=== PATIENT | female | born 1935 | race Caucasian/White ===

== ENCOUNTER 2020-04-30 19:19 | Inpatient (IN) | payer OTHER ==
[2020-04-30] MEDS ORDERED: METOPROLOL TARTRATE 5 MG/5 ML INJ IV ONE ×3 (20:57→21:35)
[2020-04-30 21:02] LABS: Basophils % 1.5 % (0-1.3); Hematocrit 48.5 % (36.0-45.0); Lymphocytes % 38.6 % (15.3-44.8); MPV 9.8 fL (7.6-11.3); RBC Red Blood Cell Count 5.18 M/uL (3.86-4.86)
[2020-04-30 21:03] LABS: Protime INR 1.65
[2020-04-30 21:10] LABS: ALT/SGPT 32 U/L (12-78); AST/SGOT 55 U/L (15-37); Albumin 3.3 g/dL (3.4-5.0); Alkaline Phosphatase 69 U/L (45-117); BUN Blood Urea Nitrogen 14 mg/dL (7-18); Bicarbonate 28 mmol/L (21-32); Bilirubin Direct 0.2 mg/dL (0-0.2); Bilirubin Total 0.8 mg/dL (0.2-1.0); Glucose Level 110 mg/dL (74-106); Magnesium 1.9 mg/dL (1.8-2.4); NT PRO-BNP 3533 pg/mL (<450); Potassium 3.8 mmol/L (3.5-5.1); Protein, Total 7.3 g/dL (6.4-8.2); Sodium Level 138 mmol/L (136-145); Troponin (Emerg Dept Use Only) < 0.02 ng/mL (0.0-0.045)
--- NOTE | 2020-04-30 21:40 | RAD REPORT ---
EXAM DESCRIPTION: RAD - Chest Single View - 04/30/2020 9:19 pm CLINICAL HISTORY: PALPITATIONS Chest pain. COMPARISON: Chest Pa And Lat (2 Views) dated 04/21/2017; Chest Pa And Lat (2 Views) dated 04/20/2017 ; Chest Single View dated 04/19/2017; Chest Single View dated 06/07/2016 FINDINGS: Portable technique limits examination quality. Chronic elevation the right hemidiaphragm is noted. The lungs are grossly clear. The heart is upper l imit normal size. No displaced fractures. IMPRESSION: No acute intrathoracic process suspected.
--- NOTE | 2020-04-30 22:04 | EDPHYS ---
Physician Documentation [facility] Name: Laya Kim Age: 85 yrs Sex: Female : 1935 Arrival Date: 04/30/2020 Time: 19:23 Bed 15 Private MD: ED Physician Imtiaz Jack HPI: 04/30 20:29 This 85 yrs old Female presents to ER via Wheelchair with complaints of mh7 racing heart rate >130. 20:29 The patient presents with a history of irregular heart beat, heart racing. Context: The mh7 symptoms occur at rest. Onset: The symptoms/episode began/occurred 4 day(s) ago. Duration: The patient or guardian reports multiple episodes, that are intermittent. Modifying factors: The symptoms are aggravated by nothing. The symptoms are alleviated by nothing. Associated signs and symptoms: Pertinent positives: SOB, Pertinent negatives: anxiety, chest pain, cough, fever, lightheadedness, nausea, syncope, near-syncope, unusual stressors, vertigo, vomiting. Severity of symptoms: At their worst the symptoms were moderate last night, in the emergency department the symptoms are unchanged. Historical: - Allergies: 19:30 Snake serum; rr5 19:30 antibiotic medication; rr5 - PMHx: 19:30 CHF; Hypertension; Hypothyroidism; Myocardial infarction; pleural effusions requiring rr5 draining; Atrial Fib; - PSHx: 19:30 None; rr5 - Immunization history:: Adult Immunizations up to date. - Social history:: Smoking status: unknown. ROS: 20:29 Constitutional: Negative for fever, chills, and weight loss, Eyes: Negative for injury, mh7 pain, redness, and discharge, ENT: Negative for injury, pain, and discharge, Neck: Negative for injury, pain, and swelling, Abdomen/GI: Negative for abdominal pain, nausea, vomiting, diarrhea, and constipation, Back: Negative for injury and pain, : Negative for injury, bleeding, discharge, and swelling, MS/Extremity: Negative for injury and deformity, Skin: Negative for injury, rash, and discoloration, Neuro: Negative for headache, weakness, numbness, tingling, and seizure, Psych: Negative for depression, anxiety, suicide ideation, homicidal ideation, and hallucinations, Allergy/Immunology: Negative for hives, rash, and allergies, Endocrine: Negative for neck swelling, polydipsia, polyuria, polyphagia, and marked weight changes, Hematologic/Lymphatic: Negative for swollen nodes, abnormal bleeding, and unusual bruising. Exam: 20:29 Constitutional: This is a well developed, well nourished patient who is awake, alert, mh7 and in no acute distress. Head/Face: Normocephalic, atraumatic. Eyes: Pupils equal round and reactive to light, extra-ocular motions intact. Lids and lashes normal. Conjunctiva and sclera are non-icteric and not injected. Cornea within normal limits. Periorbital areas with no swelling, redness, or edema. Neck: Trachea midline, no thyromegaly or masses palpated, and no cervical lymphadenopathy. Supple, full range of motion without nuchal rigidity, or vertebral point tenderness. No Meningismus. Chest/axilla: Normal chest wall appearance and motion. Nontender with no deformity. No lesions are appreciated. 20:29 Respiratory: Lungs have equal breath sounds bilaterally, clear to auscultation and percussion. No rales, rhonchi or wheezes noted. No increased work of breathing, no retractions or nasal flaring. Abdomen/GI: Soft, non-tender, with normal bowel sounds. No distension or tympany. No guarding or rebound. No evidence of tenderness throughout. Back: No spinal tenderness. No costovertebral tenderness. Full range of motion. Skin: Warm, dry with normal turgor. Normal color with no rashes, no lesions, and no evidence of cellulitis. MS/ Extremity: Pulses equal, no cyanosis. Neurovascular intact. Full, normal range of motion. Neuro: Awake and alert, GCS 15, oriented to person, place, time, and situation. Cranial nerves II-XII grossly intact. Motor strength 5/5 in all extremities. Sensory grossly intact. Cerebellar exam normal. Normal gait. Psych: Awake, alert, with orientation to person, place and time. Behavior, mood, and affect are within normal limits. 20:29 Cardiovascular: Rate: tachycardic, Rhythm: irregularly irregular, Pulses: no pulse deficits are appreciated, Heart sounds: normal, normal S1and S2, Edema: pedal edema, that is mild, JVD: is not appreciated. 20:29 ECG was reviewed by the Attending Physician. Vital Signs: 19:30 BP 134 / 91; Pulse 132; Resp 19; Temp 97.8; Pulse Ox 99% ; Weight 81.65 kg; Height 5 rr5 ft. 7 in. (170.18 cm); Pain 0/10; 20:42 BP 127 / 80; Pulse 127; Resp 20; Pulse Ox 97% on R/A; ca1 21:07 BP 120 / 63; Pulse 133; Resp 19 S; Pulse Ox 96% on R/A; ca1 21:32 BP 109 / 67; Pulse 128; Resp 18 S; Pulse Ox 98% on R/A; ca1 22:15 BP 94 / 67; Pulse 132; Resp 19; Temp 98.1; Pulse Ox 98% on R/A; rr5 23:15 BP 106 / 74; Pulse 128; Resp 17; Pulse Ox 98% ; rr5 05/01 00:10 BP 97 / 57; Pulse 121; Resp 17; Pulse Ox 95% on R/A; rr5 04/30 19:30 Body Mass Index 28.19 (81.65 kg, 170.18 cm) rr5 MDM: 04/30 22:01 Differential diagnosis: arrythmia, dehydration, stress disorder. Data reviewed: vital [facility] signs, nurses notes, old medical records, lab test result(s), cardiac enzymes, CBC, electrolytes, urinalysis, EKG, radiologic studies, plain films. Data interpreted: Pulse oximetry: on room air is 98 %. Interpretation: normal. Counseling: I had a detailed discussion with the patient and/or guardian regarding: the historical points, exam findings, and any diagnostic results supporting the discharge/admit diagnosis, lab results, radiology results, the need for further work-up and treatment in the hospital. Response to treatment: the patient's symptoms have mildly improved after treatment. 22:03 Patient medically screened. [facility] 04/30 20:28 Order name: Basic Metabolic Panel; Complete Time: 21:11 [facility] 04/30 20:28 Order name: CBC with Diff; Complete Time: 21:07 [facility] 04/30 20:28 Order name: LFT's; Complete Time: 21:11 [facility] 04/30 20:28 Order name: Magnesium; Complete Time: 21:11 [facility] 04/30 20:28 Order name: NT PRO-BNP; Complete Time: 21:11 [facility] 04/30 20:28 Order name: PT-INR; Complete Time: 21:07 7 04/30 20:28 Order name: Troponin (emerg Dept Use Only); Complete Time: 21:11 7 04/30 22:11 Order name: COVID-19 rr5 05/01 00:24 Order name: SARS-COV-2 RT PCR [facility] 05/01 03:26 Order name: Troponin I [facility] 05/01 04:42 Order name: CBC with Automated Diff [facility] 05/01 05:07 Order name: Comprehensive Metabolic Panel [facility] 05/01 05:07 Order name: T4 Free [facility] 05/01 05:07 Order name: Magnesium [facility] 04/30 20:28 Order name: XRAY Chest (1 view); Complete Time: 21:42 mh7 04/30 20:28 Order name: EKG; Complete Time: 20:29 7 04/30 20:28 Order name: Cardiac monitoring; Complete Time: 20:43 mh7 04/30 20:28 Order name: EKG - Nurse/Tech; Complete Time: 20:31 7 04/30 20:28 Order name: IV Saline Lock; Complete Time: 20:43 7 04/30 20:28 Order name: Labs collected and sent; Complete Time: 20:43 7 05/01 05:07 Order name: Thyroid Stimulating Hormone [facility] 05/01 05:19 Order name: Urine Microscopic Only rr5 05/01 05:20 Order name: Urine Dipstick--Ancillary (enter results) tt3 05/01 05:58 Order name: Urine Dipstick-Ancillary [facility] 05/01 05:59 Order name: Urine Microscopic Only [facility] 05/01 08:55 Order name: Troponin I [facility] 04/30 20:28 Order name: O2 Per Protocol; Complete Time: 20:43 7 04/30 20:28 Order name: O2 Sat Monitoring; Complete Time: 20:43 7 04/30 20:28 Order name: Urine Dipstick-Ancillary (obtain specimen); Complete Time: 05:19 mh7 EC:29 Rate is 132 beats/min. Rhythm is irregularly irregular, A fib. QRS Rheems is Normal. CT mh7 interval is normal. QRS interval is normal. QT interval is normal. No Q waves. T waves are Normal. No ST changes noted. Clinical impression: Atrial Fibrillation. Administered Medications: 20:46 Drug: Metoprolol 5 mg Route: IVP; Site: right forearm; ca1 20:55 Follow up: Response: No adverse reaction; Cardiac rhythm is unchanged ca1 20:58 Drug: Lopressor 5 mg Route: IVP; Site: right forearm; ca1 21:11 Follow up: Response: No adverse reaction; Cardiac rhythm is unchanged ca1 21:22 Drug: Metoprolol 5 mg Route: IVP; Site: right forearm; ca1 22:20 Follow up: Response: No adverse reaction rr5 22:43 Drug: Betapace 40 mg Route: PO; rr5 23:40 Follow up: Response: No adverse reaction rr5 Disposition: 04/30/20 22:03 Hospitalization ordered by Crispin De La Torre for Observation. Preliminary diagnosis is Atrial Fibrillation with RVR. - Bed requested for Telemetry/MedSurg (observation). - Status is Observation. iw - Condition is Stable. - Problem is an acute exacerbation. - Symptoms have improved. Signatures: Dispatcher [employer] EDMS Neda Samson RN RN dm5 Belia Simon RN RN Crispin Silva RN RN rr5 Glory Cooper RN RN ca1 Imtiaz Jack MD MD 7 Corrections: (The following items were deleted from the chart) 23:19 22:03 Hospitalization Ordered by Crispin De La Torre MD for Observation. Preliminary dm5 diagnosis is Atrial Fibrillation with RVR. Bed requested for Telemetry/MedSurg (observation). Status is Observation. Condition is Stable. Problem is an acute exacerbation. Symptoms have improved. [facility] 05/01 14:19 04/30 23:19 04/30/2020 22:03 Hospitalization Ordered by Crispin De La Torre MD for iw Observation. Preliminary diagnosis is Atrial Fibrillation with RVR. [facility]. Status is Observation. Condition is Stable. Problem is an acute exacerbation. Symptoms have improved. 5 05/01 15:29 14:19 04/30/2020 22:03 Hospitalization Ordered by Crispin De La Torre MD for Observation. iw Preliminary diagnosis is Atrial Fibrillation with RVR. Bed requested for Telemetry/MedSurg (observation). Status is Observation. Condition is Stable. Problem is an acute exacerbation. Symptoms have improved. iw
--- NOTE | 2020-04-30 22:04 | ER ---
Nurse's Notes [facility] Name: Laya Kim Age: 85 yrs Sex: Female : 1935 Arrival Date: 04/30/2020 Time: 19:23 Bed 15 Private MD: Diagnosis: Atrial Fibrillation with RVR Presentation: 04/30 19:30 Chief complaint: Patient's son or daughter states: we noticed that her heart rate is rr5 beating fast started Saturday raised up to 140 bpm and she is having shortness of breath. 19:30 Coronavirus screen: Client denies travel out of the [place] in the last 14 days. shortness rr5 of breath, Client presents with at least one sign or symptom that may indicate coronavirus-19. Standard/surgical mask placed on the client. Provider contacted for isolation considerations. Ebola Screen: Patient negative for fever greater than or equal to 101.5 degrees Fahrenheit, and additional compatible Ebola Virus Disease symptoms Patient denies exposure to infectious person. Patient denies travel to an Ebola-affected area in the 21 days before illness onset. Initial Sepsis Screen: Does the patient meet any 2 criteria? HR > 90 bpm. Yes Does the patient have a suspected source of infection? No. Patient's initial sepsis screen is negative. Risk Assessment: Do you want to hurt yourself or someone else? Patient reports no desire to harm self or others. Onset of symptoms was April 26, 2020. 19:30 Method Of Arrival: Wheelchair rr5 19:30 Acuity: NATAN 3 rr5 Historical: - Allergies: 19:30 Snake serum; rr5 19:30 antibiotic medication; rr5 - PMHx: 19:30 CHF; Hypertension; Hypothyroidism; Myocardial infarction; pleural effusions requiring rr5 draining; Atrial Fib; - PSHx: 19:30 None; rr5 - Immunization history:: Adult Immunizations up to date. - Social history:: Smoking status: unknown. Screenin:35 Abuse screen: Denies threats or abuse. Denies injuries from another. Nutritional ca1 screening: No deficits noted. Tuberculosis screening: No symptoms or risk factors identified. Fall Risk IV access (20 points). Assessment: 20:35 General: Appears in no apparent distress. comfortable, Behavior is calm, cooperative, ca1 appropriate for age. Pain: Denies pain. Neuro: Level of Consciousness is awake, alert, obeys commands, Oriented to person, place, time, situation. Cardiovascular: Heart tones S1 S2 present Capillary refill < 3 seconds Patient's skin is warm and dry. Rhythm is atrial fibrillation. Respiratory: Airway is patent Respiratory effort is even, unlabored, Respiratory pattern is regular, symmetrical, Breath sounds are clear bilaterally. GI: Abdomen is round non-distended, Bowel sounds present X 4 quads. Abd is soft and non tender X 4 quads. : No signs and/or symptoms were reported regarding the genitourinary system. EENT: No signs and/or symptoms were reported regarding the EENT system. Derm: Skin is intact, is healthy with good turgor, Skin is pink, warm \T\ dry. Musculoskeletal: Circulation, motion, and sensation intact. Capillary refill < 3 seconds. 21:32 Reassessment: Patient appears in no apparent distress at this time. Patient and/or ca1 family updated on plan of care and expected duration. Pain level reassessed. Patient is alert, oriented x 3, equal unlabored respirations, skin warm/dry/pink. 22:20 Reassessment: Patient appears in no apparent distress at this time. Patient is alert, rr5 oriented x 3, equal unlabored respirations, skin warm/dry/pink. 23:10 Reassessment: jenny bustillo son [phone]. rr5 23:10 Reassessment: Patient appears in no apparent distress at this time. No changes from rr5 previously documented assessment. 05/01 00:00 Reassessment: Patient appears in no apparent distress at this time. Patient is alert, rr5 oriented x 3, equal unlabored respirations, skin warm/dry/pink. admitted as ER hold. Vital Signs: 04/30 19:30 BP 134 / 91; Pulse 132; Resp 19; Temp 97.8; Pulse Ox 99% ; Weight 81.65 kg; Height 5 rr5 ft. 7 in. (170.18 cm); Pain 0/10; 20:42 BP 127 / 80; Pulse 127; Resp 20; Pulse Ox 97% on R/A; ca1 21:07 BP 120 / 63; Pulse 133; Resp 19 S; Pulse Ox 96% on R/A; ca1 21:32 BP 109 / 67; Pulse 128; Resp 18 S; Pulse Ox 98% on R/A; ca1 22:15 BP 94 / 67; Pulse 132; Resp 19; Temp 98.1; Pulse Ox 98% on R/A; rr5 23:15 BP 106 / 74; Pulse 128; Resp 17; Pulse Ox 98% ; rr5 05/01 00:10 BP 97 / 57; Pulse 121; Resp 17; Pulse Ox 95% on R/A; rr5 04/30 19:30 Body Mass Index 28.19 (81.65 kg, 170.18 cm) rr5 ED Course: 04/30 19:23 Patient arrived in ED. am2 19:38 Triage completed. rr5 20:18 Imtiaz Jack MD is Attending Physician. mh7 20:30 Arm band placed on right wrist. ca1 20:35 Patient has correct armband on for positive identification. Placed in gown. Bed in low ca1 position. Call light in reach. Side rails up X2. traffic monitor specialist on. Pulse ox on. NIBP on. Warm blanket given. 20:42 Initial lab(s) drawn, by mi, sent to lab. Inserted saline lock: 22 gauge in right ca1 forearm, using aseptic technique. Blood collected. 20:46 Glory Cooper, YOLI is Primary Nurse. ca1 21:19 XRAY Chest (1 view) In Process Unspecified. EDMS 22:02 Crispin De La Torre MD is Hospitalizing Provider. 7 22:08 Report given to YOLI Roa. ca1 22:45 COVID swab sent to lab. rr5 05/01 00:00 No provider procedures requiring assistance completed. Patient admitted, IV remains in rr5 place. intact, No redness/swelling at site. Administered Medications: 04/30 20:46 Drug: Metoprolol 5 mg Route: IVP; Site: right forearm; ca1 20:55 Follow up: Response: No adverse reaction; Cardiac rhythm is unchanged ca1 20:58 Drug: Lopressor 5 mg Route: IVP; Site: right forearm; ca1 21:11 Follow up: Response: No adverse reaction; Cardiac rhythm is unchanged ca1 21:22 Drug: Metoprolol 5 mg Route: IVP; Site: right forearm; ca1 22:20 Follow up: Response: No adverse reaction rr5 22:43 Drug: Betapace 40 mg Route: PO; rr5 23:40 Follow up: Response: No adverse reaction rr5 Intake: 21:23 IV: 1000ml; Total: 1000ml. ca1 Outcome: 22:03 Decision to Hospitalize by Provider. mh7 05/01 00:00 Admitted to ER Hold. Please see [facility] for further documentation. rr5 Condition: stable Discharge instructions given to patient, Instructed on the need for admit. 15:29 Patient left the ED. iw Signatures: Dispatcher [employer] EDBelia Clark RN RN iw Meg Mishra am2 Crispin Silva RN RN rr5 Glory Cooper RN RN ca1 Imtiaz Jack MD MD 7 Corrections: (The following items were deleted from the chart) 04/30 20:43 20:00 Arm band placed on right wrist. ca1 ca1 20:47 20:42 BP 127 / 80; Pulse 119bpm; Resp 20bpm; Pulse Ox 97% RA; ca1 ca1
[2020-04-30] MEDS ORDERED: SOTALOL HCL 80 MG TAB ONE (22:24)
--- NOTE | 2020-05-01 00:01 | P.HP ---
Certification for Inpatient Patient admitted to: Observation With expected LOS: <2 Midnights Patient will require the following post-hospital care: None Practitioner: I am a practitioner with admitting privileges, knowledge of patient current condition, hospital course, and medical plan of care. Services: Services provided to patient in accordance with Admission requirements found in Title 42 Section 412.3 of the Code of Federal Regulations <Wilbert Briseno - Last Filed: 04/30/20 23:59> Patient History Date of Service: 04/30/20 Reason for admission: AFib RVR History of Present Illness: 85-year-old female with history of atrial fibrillation on chronic anticoagulation therapy presents emergency department for AFib RVR. Son states her heart rate has been running in the 130s to 142 over the course of the last few days. Patient was evaluated in the emergency department, heart rate found to be around 135. Patient was given 3 rounds of metoprolol 5 mg IV which had little effect. Patient currently taking sotalol 80 mg p.o. b.i.d., case was discussed with cardiology, recommend increase of sotalol from 80 mg to 120 mg p.o. b.i.d. and p.r.n. metoprolol IV overnight for rate control. Patient be admitted for observation overnight. Labs significant for elevated BNP 3533. - Past Medical/Surgical History Diabetic: Yes -: Diabetes mellitus type 2 -: Hypertension -: Atrial fibrillation -: Chronic anti coagulation -: Hypothyroidism Psychosocial/ Personal History: She is a . She lives with a disabled son. - Family History Father -: Heart disease Mother -: Cancer (Pancreatic cancer) - Social History Smoking Status: Never smoker Alcohol use: No CD- Drugs: No Caffeine use: Yes Place of Residence: Home <SuzannaWilbert - Last Filed: 04/30/20 23:59> Date of Service: 05/06/20 <Crispin De La Torre - Last Filed: 05/06/20 04:08> Allergies antibiotic medication Allergy (Uncoded 05/01/20 00:32) Itching/Hives/Rash Snake serum Allergy (Uncoded 06/07/16 20:44) Unknown Home Medications: Levothyroxine [Synthroid*] 125 mcg PO [id number] 04/19/17 Tramadol HCl [Ultram] 50 mg PO Q6HP PRN 04/19/17 Pantoprazole [Protonix Tab*] 40 mg PO DAILYAC #60 tab 04/21/17 Apixaban [Eliquis] 5 mg PO BID #60 tablet 05/05/20 Diltiazem Cd [Cardizem Cd*] 120 mg PO DAILY #30 cap 05/05/20 Sotalol HCl [Sotalol] 120 mg PO BID #60 tablet 05/05/20 Review of Systems 10-point ROS is otherwise unremarkable Respiratory: SOB with Excertion <Wilbert Briseno - Last Filed: 04/30/20 23:59> Physical Examination - Physical Exam General: Alert, In no apparent distress HEENT: Atraumatic, PERRLA, Mucous membr. moist/pink, EOMI, Sclerae nonicteric Neck: Supple, 2+ carotid pulse no bruit, No LAD, Without JVD or thyroid abnormality Respiratory: Clear to auscultation bilaterally, Normal air movement Cardiovascular: Normal S1 S2, Irregular heart rate/rhythm (AFib RVR, rate around 120) Gastrointestinal: Normal bowel sounds, No tenderness Musculoskeletal: No tenderness Integumentary: No rashes Neurological: Normal gait, Normal speech, Normal strength at 5/5 x4 extr, Normal tone, Normal affect Lymphatics: No axilla or inguinal lymphadenopathy - Studies Laboratory Data (last 24 hrs) 04/30/20 20:42: PT 19.3 H, INR 1.65 04/30/20 20:42: WBC 7.7, Hgb 16.1 H, Hct 48.5 H, Plt Count 219 04/30/20 20:42: Sodium 138, Potassium 3.8, BUN 14, Creatinine 1.11, Glucose 110 H, Magnesium 1.9, Total Bilirubin 0.8, AST 55 H, ALT 32, Alkaline Phosphatase 69 <Wilbert Briseno - Last Filed: 04/30/20 23:59> Assessment and Plan - Plan Assessment Atrial fibrillation RVR-on chronic anticoagulation therapy Hypothyroidism Plan Atrial fibrillation RVR-on chronic anticoagulation therapy: Cardiology consult in place, monitor on telemetry. Increase Betapace dose from 80 mg to 120 mg p.o. b.i.d.. Metoprolol IV for rate control overnight. Appreciate further input from cardiology, continue Eliquis for DVT prophylaxis. Hypothyroidism: Obtain and continue home medications, thyroid panel with morning labs. Discharge Plan: Home Plan to discharge in: 24 Hours - Advance Directives Does patient have a Living Will: No Does patient have a Durable POA for Healthcare: No - Code Status/Comfort Care Code Status Assessed: Yes (Full code) Critical Care: No Time Spent Managing Pts Care (In Minutes): 55 <Wilbert Briseno - Last Filed: 04/30/20 23:59> - Plan Plan of care discussed with Wilbert Briseno, and I agree with the management plan as noted above. Afib with RVR, h/o Afib. monitor on higher dose of Betapace. Cardiology consulted. <Crispin De La Torre - Last Filed: 05/06/20 04:08>
[2020-05-01] MEDS ORDERED: METOPROLOL TARTRATE 5 MG/5 ML INJ IV PRN (00:30)
[2020-05-01] MEDS ORDERED: ONDANSETRON 4 MG/2 ML VIAL IV PRN (00:30)
[2020-05-01] MEDS ORDERED: ACETAMINOPHEN 500 MG TAB PO PRN (00:30)
[2020-05-01 03:23] VITALS: BMI 27.9
[2020-05-01 04:37] LABS: Absolute Lymphocytes (CBC) 2.2 K/uL (0.7-4.9); Basophils % 1.2 % (0-1.3); Hematocrit 45.3 % (36.0-45.0); Lymphocytes % 37.4 % (15.3-44.8); MPV 10.5 fL (7.6-11.3); RBC Red Blood Cell Count 4.75 M/uL (3.86-4.86)
[2020-05-01 05:03] LABS: Albumin 2.7 g/dL (3.4-5.0); Bilirubin Total 0.7 mg/dL (0.2-1.0); Magnesium 1.9 mg/dL (1.8-2.4); Potassium 3.5 mmol/L (3.5-5.1)
[2020-05-01] MEDS ORDERED: SOTALOL HCL 80 MG TAB ONE (05:20)
[2020-05-01] MEDS: SOTALOL HCL 80 MG TAB PO SCH ×2 (05:24→17:26)
[2020-05-01] MEDS ORDERED: POTASSIUM CL SA 10 MEQ TAB PO ONE ×2 (05:27→05:53)
[2020-05-01 05:58] LABS: Urine Blood 1+ (NEG); Urine Glucose NEGATIVE (NEG); Urine Protein NEGATIVE (NEG); Urine Specific Gravity 1.015 (1.005-1.030); Urine pH 5.5 (5.0-7.0)
[2020-05-01 05:59] LABS: Urine Bacteria <20 /HPF (<20); Urine RBC <5 /HPF (NONE SEEN); Urine Urothelial Cells <5 /HPF (NONE SEEN)
[2020-05-01] MEDS: APIXABAN 5 MG TABLET PO SCH ×2 (09:00→21:34)
[2020-05-01] MEDS ORDERED: APIXABAN 5 MG TABLET ONE (10:45)
--- NOTE | 2020-05-01 14:17 | CON ---
Date of Consultation: 05/01/2020 Reason For Consultation: AFib with RVR. History Of Present Illness: An 85-year-old female, history of atrial fibrillation which is chronic, presented to the emergency room due to palpitations. Heart rate was in the 130s to 140s. Given IV m etoprolol (the patient is on sotalol 80 mg twice a day at home) and discussed the case with the [facility] hospitalist yesterday and increased Betapace from 80 to 120 this morning. Her heart rate is in th e 70s and 80s, and the patient is feeling well. Denies having any chest pain. Past Medical History: Diabetes, hypertension, atrial fibrillation, hypothyroidism. Medications: Refer to reconciliation sheet for detailed list. Allergies: NO KNOWN DRUG ALLERGIES. Social History: Does not smoke or drink. Does not use any drugs. Family History: No premature coronary artery disease or cancer. Review of Systems: All systems were reviewed and they were negative except what mentioned in the HPI. Physical Examination: Vital Signs: Temperature is 97.8, heart rate 70s to 80s, blood pressure is 97/82, saturating 96% on room air. General: Pleasant elderly female, in no distress. Head and Neck: Pupils are equal, reactive to light. Intact eye movements. No JVD. No cervical lym phadenopathy. Neck: Supple. Thyroid is not enlarged. Lungs: Clear to auscultation bilaterally. No rhonchi, rales, or crackles. No accessory muscle use. Heart: Regular rate and rhythm. No extra sounds. Abdomen: Soft, nontender. Bowel sounds positive. No organomegaly. No masses or hernia. No rigidi ty or rebound. Extremities: No edema, clubbing, or cyanosis. Intact pulses. Skin: No rash noted. Neurologic: Alert, awake, oriented x3. No acute focal deficits appreciated. Investigations: Troponins x3 are negative. Creatinine is 1.09. White blood cell count is 5.8, hemo globin 14.8. Assessment And Recommendations: Atrial fibrillation with rapid ventricular response. As discussed darshan prado, increased the Betapace to 120 mg twice a day. Monitor daily EKGs to evaluate the QTc interva l and continue anticoagulation with apixaban 5 mg twice a day and please replace the potassium to rei p the level above 4 and check magnesium level. SR/MODL Voice ID: [id number] Report ID: [id number]
--- NOTE | 2020-05-01 16:24 | P.PN ---
Subjective Date of Service: 05/01/20 Chief Complaint: AFib RVR Subjective: Improving (heart rate better controlled, no chest pain. feeling a lot better) Review of Systems 10-point ROS is otherwise unremarkable Physical Examination - Vital Signs Temperature: 97.9 F Blood Pressure: 108/56 Pulse: 74 Respirations: 16 Pulse Ox (%): 98 - Physical Exam General: Alert, In no apparent distress Respiratory: Clear to auscultation bilaterally Cardiovascular: Irregular heart rate/rhythm Gastrointestinal: Soft and benign, No tenderness Musculoskeletal: No tenderness Integumentary: No significant lesion Neurological: Normal speech, Normal affect - Studies Laboratory Data (last 24 hrs) 04/30/20 20:42: PT 19.3 H, INR 1.65 04/30/20 20:42: WBC 7.7, Hgb 16.1 H, Hct 48.5 H, Plt Count 219 04/30/20 20:42: Sodium 138, Potassium 3.8, BUN 14, Creatinine 1.11, Glucose 110 H, Magnesium 1.9, Total Bilirubin 0.8, AST 55 H, ALT 32, Alkaline Phosphatase 69 Assessment & Plan Physician Review Additional Text: Atrial fibrillation RVR-on chronic anticoagulation therapy Hypothyroidism Plan Atrial fibrillation RVR-on chronic anticoagulation therapy: Betapace increased to 120mg BID per cardiology recommendation. better rate control this morning patient feeling better will continue to monitor if HR remains <100, she is feeling well, possible DC home later today after 3rd dose. Will need EKG to eval for QT prolongation after 3rd dose, if all ok, can dc home Hypothyroidism: continue home meds Dispo: possible dc home later today Time Spent Managing Pts Care (In Minutes): 35
--- NOTE | 2020-05-01 18:14 | P.DS ---
Admission Date: 05/02/20 Discharge Date: 05/09/20 Reason for Admission: AFib RVR Procedures: CXR- negative for acute findings, see report for details Medical problem list Afib on chronic anticoagulation HTN hypothyroidism GERD Brief History of Present Illness: 85-year-old female with history of atrial fibrillation on chronic anticoagulation therapy presents emergency department for AFib RVR. Son states her heart rate has been running in the 130s to 142 over the course of the last few days. Patient was evaluated in the emergency department, heart rate found to be around 135. Patient was given 3 rounds of metoprolol 5 mg IV which had little effect. Patient currently taking sotalol 80 mg p.o. b.i.d., case was discussed with cardiology, recommend increase of sotalol from 80 mg to 120 mg p.o. b.i.d. and p.r.n. metoprolol IV overnight for rate control. Patient be admitted for observation overnight. Labs significant for elevated BNP 3533. <Wilbert Briseno - Last Filed: 05/09/20 20:00> Admission Date: 05/02/20 Discharge Date: 05/19/20 Hospital Course: discharge held due to continued Afib with HR> 120 at times, Sotalol increased. <Crispin De La Torre - Last Filed: 05/19/20 13:51> Disposition: ROUTINE DISCHARGE Discharge Condition: FAIR Vital Signs/Physical Exam: Temp Pulse Resp BP Pulse Ox 97.9 F 74 16 108/56 L 98 05/01/20 16:24 05/01/20 16:24 05/01/20 16:24 05/01/20 16:24 05/01/20 16:24 General: Alert, In no apparent distress, Oriented x3 HEENT: Atraumatic, Normocephalic, PERRLA Neck: Supple Respiratory: Clear to auscultation bilaterally Cardiovascular: No edema, Irregular heart rate/rhythm (afib rate controlled) Capillary refill: <2 Seconds Gastrointestinal: Normal bowel sounds, Soft and benign Laboratory Data at Discharge: WBC 5.8 K/uL (4.3-10.9) D 05/01/20 04:02 Hgb 14.8 g/dL (12.0-15.0) 05/01/20 04:02 Hct 45.3 % (36.0-45.0) H 05/01/20 04:02 Plt Count 226 K/uL (152-406) 05/01/20 04:02 PT 19.3 SECONDS (9.5-12.5) H 04/30/20 20:42 INR 1.65 04/30/20 20:42 Sodium 140 mmol/L (136-145) 05/01/20 04:02 Potassium 3.5 mmol/L (3.5-5.1) 05/01/20 04:02 BUN 12 mg/dL (7-18) 05/01/20 04:02 Creatinine 1.07 mg/dL (0.55-1.3) 05/01/20 04:02 Glucose 128 mg/dL (74-106) H 05/01/20 04:02 Magnesium 1.9 mg/dL (1.8-2.4) 05/01/20 04:02 Total Bilirubin 0.7 mg/dL (0.2-1.0) 05/01/20 04:02 AST 40 U/L (15-37) H 05/01/20 04:02 ALT 26 U/L (12-78) 05/01/20 04:02 Alkaline Phosphatase 51 U/L (45-117) 05/01/20 04:02 Troponin I < 0.02 ng/mL (0.0-0.045) 05/01/20 08:18 <Wilbert Briseno - Last Filed: 05/09/20 20:00> Vital Signs/Physical Exam: Temp Pulse Resp BP Pulse Ox 97.2 F 103 H 18 118/73 94 05/05/20 12:00 05/05/20 12:00 05/05/20 12:00 05/05/20 12:00 05/05/20 12:00 Laboratory Data at Discharge: WBC 5.8 K/uL (4.3-10.9) D 05/01/20 04:02 Hgb 14.8 g/dL (12.0-15.0) 05/01/20 04:02 Hct 45.3 % (36.0-45.0) H 05/01/20 04:02 Plt Count 226 K/uL (152-406) 05/01/20 04:02 PT 19.3 SECONDS (9.5-12.5) H 12/26/20 20:42 INR 1.65 04/30/20 20:42 Sodium 142 mmol/L (136-145) 05/04/20 05:57 Potassium 4.1 mmol/L (3.5-5.1) 05/04/20 05:57 BUN 18 mg/dL (7-18) 05/04/20 05:57 Creatinine 1.03 mg/dL (0.55-1.3) 05/04/20 05:57 Glucose 110 mg/dL (74-106) H 05/04/20 05:57 Magnesium 2.0 mg/dL (1.8-2.4) 05/03/20 05:15 Total Bilirubin 0.7 mg/dL (0.2-1.0) 05/01/20 04:02 AST 40 U/L (15-37) H 05/01/20 04:02 ALT 26 U/L (12-78) 05/01/20 04:02 Alkaline Phosphatase 51 U/L (45-117) 05/01/20 04:02 Troponin I < 0.02 ng/mL (0.0-0.045) 05/01/20 08:18 <Crispin De La Torre - Last Filed: 05/19/20 13:51> <Wilbert Briseno - Last Filed: 05/09/20 20:00> <Crispin De La Torre - Last Filed: 05/19/20 13:51> Home Medications: Levothyroxine [Synthroid*] 125 mcg PO [id number] 04/19/17 Tramadol HCl [Ultram] 50 mg PO Q6HP PRN 04/19/17 Pantoprazole [Protonix Tab*] 40 mg PO DAILYAC #60 tab 04/21/17 Apixaban [Eliquis] 5 mg PO BID #60 tablet 05/05/20 Diltiazem Cd [Cardizem Cd*] 120 mg PO DAILY #30 cap 05/05/20 Sotalol HCl [Sotalol] 120 mg PO BID #60 tablet 05/05/20 New Medications: Diltiazem Cd [Cardizem Cd*] 120 mg PO DAILY #30 cap Apixaban [Eliquis] 5 mg PO BID #60 tablet Sotalol HCl [Sotalol] 120 mg PO BID #60 tablet Followup: Tramaine Alcaraz MD [ACTIVE - CAN ADMIT] - 1-2 Weeks (Call to make an appointment. ) OOT,VipulOT [Primary Care Provider] - 1 Week
[2020-05-02] MEDS: SOTALOL HCL 80 MG TAB PO SCH ×2 (05:52→17:13)
[2020-05-02 05:57] LABS: Potassium 3.7 mmol/L (3.5-5.1)
[2020-05-02] MEDS ORDERED: POTASSIUM CL SA 10 MEQ TAB PO ONE (09:00)
[2020-05-02] MEDS: APIXABAN 5 MG TABLET PO SCH ×2 (09:02→21:05)
--- NOTE | 2020-05-02 18:39 | P.PN ---
Subjective Date of Service: 05/02/20 Chief Complaint: AFib RVR Subjective: No new changes (remains in Afib with RVR despite increase in sotalol. still feels weak, difficulty just to walk a short distance. otherwise ok) Review of Systems 10-point ROS is otherwise unremarkable Physical Examination - Vital Signs Temperature: 98.3 F Blood Pressure: 117/71 Pulse: 117 Respirations: 18 Pulse Ox (%): 95 - Physical Exam General: Alert, In no apparent distress HEENT: Sclerae nonicteric Respiratory: Clear to auscultation bilaterally Cardiovascular: No edema, Irregular heart rate/rhythm (tachycardia) Gastrointestinal: Soft and benign, No tenderness Musculoskeletal: No tenderness Integumentary: No rashes Neurological: Normal speech, Normal affect - Studies Laboratory Data (last 24 hrs) 05/02/20 05:31: Sodium 142, Potassium 3.7, BUN 13, Creatinine 0.94, Glucose 99, Magnesium 2.0 05/01/20 18:06: Potassium 4.0 Assessment & Plan Physician Review Additional Text: Atrial fibrillation RVR-on chronic anticoagulation therapy Hypothyroidism Plan Atrial fibrillation RVR-on chronic anticoagulation therapy: Betapace increased to 120mg BID per cardiology recommendation. better rate control, however remains tachy 105-130, discussed with cardiology, will obtain TTE, if normal EF will start CCB requiring IV lopressor today Generalized Weakness / Debility -PT/OT consulted -pt and son state she is very weak and would benefit from SNF / rehab Hypothyroidism: continue home meds Dispo: PT/OT consult, possible SNF placement Time Spent Managing Pts Care (In Minutes): 35
[2020-05-03] MEDS: SOTALOL HCL 80 MG TAB PO SCH ×2 (05:01→18:00)
[2020-05-03 06:07] LABS: Potassium 3.9 mmol/L (3.5-5.1)
[2020-05-03] MEDS ORDERED: POTASSIUM CL SA 10 MEQ TAB PO ONE (09:00)
[2020-05-03] MEDS: APIXABAN 5 MG TABLET PO SCH ×2 (09:44→20:45)
--- NOTE | 2020-05-03 15:49 | P.PN ---
Subjective Date of Service: 05/03/20 Chief Complaint: AFib RVR Subjective: No new changes Patient has no complain today. She is eating well. Heart rate ranging from 110 to 120. Physical Examination - Vital Signs Temperature: 97.3 F Blood Pressure: 139/81 Pulse: 122 Respirations: 18 Pulse Ox (%): 98 - Physical Exam General: Alert, In no apparent distress Neck: Supple, JVD not distended Respiratory: Clear to auscultation bilaterally, Normal air movement Cardiovascular: No edema, Normal S1 S2, Irregular heart rate/rhythm Gastrointestinal: Soft and benign, Non-distended, No tenderness Musculoskeletal: No swelling Integumentary: No rashes, No erythema Neurological: Normal speech, Normal strength at 5/5 x4 extr Assessment And Plan - Current Problems (Diagnosis) (1) Debility Current Visit: Yes Status: Acute (2) Atrial fibrillation with RVR Current Visit: No Status: Acute (3) Diabetes mellitus Current Visit: No Status: Chronic Qualifiers: Diabetes mellitus type: type 2 Diabetes mellitus computer terminal operator insulin use: without computer terminal operator use Diabetes mellitus complication status: with other specified complication Qualified Code(s): E11.69 - Type 2 diabetes mellitus with other specified complication Physician Review Additional Text: Atrial fibrillation RVR-on chronic anticoagulation therapy Hypothyroidism Plan Atrial fibrillation RVR-on chronic anticoagulation therapy: Continue Betapace 120mg BID per cardiology recommendation. Echocardiogram is pending. Plan is to add Cardizem once echo shows normal EF per cardiology recommendation. She is anticoagulated with Eliquis. Generalized Weakness / Debility -patient receiving PT. -patient stated she was able to ambulate with a cane. -may do well with home health with PT. Hypothyroidism: continue home meds. DM type 2 Blood sugar within normal range without medication.
[2020-05-04] MEDS: SOTALOL HCL 80 MG TAB PO SCH ×2 (05:15→17:25)
[2020-05-04 06:34] LABS: Potassium 4.1 mmol/L (3.5-5.1)
--- NOTE | 2020-05-04 07:48 | ECHO ---
HEIGHT: 5 ft 7 in WEIGHT: 178 lb 9.191 oz DATE OF STUDY: 05/03/[address]: Crispin De La Torre MD 2-DIMENSIONAL: YES M.MODE: YES DOPPLER: YES COLOR FLOW: YES TDS: YES PORTABLE: DEFINITY: BUBBLE STUDY: DIAGNOSIS: EVALUATE EJECTION FRACTION/ ATRIAL FIBRILLATION CARDIAC HISTORY: CATHERIZATION: NO SURGERY: NO PROSTHETIC VALVE: NO PACEMAKER: NO MEASUREMENTS (cm) DIASTOLIC (NORMALS) SYSTOLIC (NORMALS) IVSd 0.9 (0.6-1.2) LA Diam 4.4 (1.9-4.0) LVEF 52% LVIDd 4.6 (3.5-5.7) LVIDs 3.4 (2.0-3.5) %FS 27% LVPWd 1.1 (0.6-1.2) Ao Diam 2.8 (2.0-3.7) 2 DIMENSIONAL ASSESSMENT: RIGHT ATRIUM: NORMAL LEFT ATRIUM: DILATED RIGHT VENTRICLE: NORMAL LEFT VENTRICLE: NORMAL TRICUSPID VALVE: NORMAL MITRAL VALVE: MITRAL ANNULAR CALCIFICATION PULMONIC VALVE: NORMAL AORTIC VALVE: SCLEROSIS PERICARDIAL EFFUSION: NONE AORTIC ROOT: NORMAL LEFT VENTRICULAR WALL MOTION: NORMAL DOPPLER/COLOR FLOW: MILD TRICUSPID REGURGITATON COMMENTS: ATRIAL FIBRILLATION. AORTIC SCLEROSIS. MITRAL ANNULAR CALCIFICATION. NORMAL EJECTION FRACTION. NO EFFUSION. LEFT ATRIAL ENLARGEMENT. TECHNOLOGIST: LARRY BOYCE
[2020-05-04] MEDS: APIXABAN 5 MG TABLET PO SCH ×2 (08:34→20:31)
[2020-05-04] MEDS: DILTIAZEM HCL 120 MG SR CAP PO SCH (11:58)
--- NOTE | 2020-05-04 12:04 | PN ---
Date of Progress Note: 05/04/2020 Subjective: Ms. Kim has been followed by Dr. Hidalgo and Dr. Wade and myself for paroxysmal atri al fibrillation. She is on 120 mg b.i.d. of Betapace and remained in AFib with rapid ventricular res ponse. Echocardiogram showed normal ejection fraction. She is on Eliquis. I think addition of Card izem CD 60 or 120 mg once a day is not unreasonable. She is not really symptomatic from her atrial f ibrillation. Her biggest problem is her generalized weakness and debility, diabetes, and hypothyroid ism. I would continue the Betapace, switch to Cardizem, continue the Eliquis. Should she become sym ptomatic from a cardiovascular standpoint, we will consider cardioversion electrically. No change in medical therapy. We will sign off her case for now. LINUS/GOSIA Voice ID: [id number] Report ID: [id number]
--- NOTE | 2020-05-04 12:32 | PN ---
The patient was seen by Dr. Hidalgo on 05/01/2020 for atrial fibrillation with rapid ventricular respo nse. Her Betapace was increased over to 120 mg twice a day. Eliquis was continued. Potassium was r eplaced. On 05/03/2020, the patient remained in atrial fibrillation at rate of 106, blood pressure 1 06/64. She had a room air saturation of 96% on room air. No specific complaints from a cardiovascul ar standpoint. Her other issues include debility, diabetes, and generalized weakness along with hypo thyroidism. The patient has been followed by Dr. Wade as well. No change in medical therapy at is point. LINUS/GOSIA Voice ID: [id number] Report ID: [id number]
--- NOTE | 2020-05-04 16:38 | P.PN ---
Subjective Date of Service: 05/04/20 Chief Complaint: AFib RVR Patient has no complain today. She is eating well. Her heart rate has been related high today, up to 130s. Physical Examination - Vital Signs Temperature: 97.9 F Blood Pressure: 118/68 Pulse: 117 Respirations: 18 Pulse Ox (%): 98 - Physical Exam General: Alert, In no apparent distress, Oriented x3 Neck: JVD not distended Respiratory: Clear to auscultation bilaterally, Normal air movement Cardiovascular: No edema, Normal S1 S2, Irregular heart rate/rhythm Gastrointestinal: Soft and benign, Non-distended, No tenderness Musculoskeletal: No swelling, No tenderness Integumentary: No rashes Neurological: Normal speech, Normal strength at 5/5 x4 extr Assessment And Plan - Current Problems (Diagnosis) (1) Atrial fibrillation with RVR Current Visit: No Status: Acute (2) Debility Current Visit: Yes Status: Acute (3) Diabetes mellitus Current Visit: No Status: Chronic Qualifiers: Diabetes mellitus type: type 2 Diabetes mellitus special education paraeducator insulin use: without special education paraeducator use Diabetes mellitus complication status: with other specified complication Qualified Code(s): E11.69 - Type 2 diabetes mellitus with other specified complication Physician Review Additional Text: Atrial fibrillation RVR-on chronic anticoagulation therapy Hypothyroidism Plan Atrial fibrillation RVR-on chronic anticoagulation therapy: Continue Betapace 120mg BID per cardiology recommendation. Echocardiogram: Normal EF Oral Cardizem CD added today to control her heart rate. Target heart rate of at most 70-110 She is anticoagulated with Eliquis. Generalized Weakness / Debility -patient receiving PT. -patient has been able to ambulate with a cane. -may do well with home health with PT. -She wants to go home. Hypothyroidism: continue home meds. DM type 2 Blood sugar within normal range without medication.
[2020-05-04 21:00] VITALS: O2SAT 96
[2020-05-04] MEDS: HYDROCODONE/APAP 10/325 TAB PO PRN (23:53)
[2020-05-05] MEDS: SOTALOL HCL 80 MG TAB PO SCH (06:12)
[2020-05-05] MEDS: HYDROCODONE/APAP 10/325 TAB PO PRN (06:18)
--- NOTE | 2020-05-05 09:01 | P.DS ---
Admission Date: 05/02/20 Discharge Date: 05/05/20 Disposition: DC HOME/HOME HEALTH CARE Discharge Condition: FAIR Reason for Admission: AFib RVR - Problems (1) Atrial fibrillation with RVR Current Visit: No Status: Acute (2) Debility Current Visit: Yes Status: Acute (3) Diabetes mellitus Current Visit: No Status: Chronic Qualifiers: Diabetes mellitus type: type 2 Diabetes mellitus detention insulin use: without detention use Diabetes mellitus complication status: with other specified complication Qualified Code(s): E11.69 - Type 2 diabetes mellitus with other specified complication Brief History of Present Illness: 85-year-old woman with a history of atrial fibrillation and hypothyroidism prese nted to the emergency department with a complaint of rapid heart rate of between 130-140. Patient was evaluated in the ED and found to have heart rate in the 130s. Cardiology-Dr. Hidalgo was informed who recommended to increase her sotalol dose from 80 mg twice a day to 120 mg twice a day. Patient was subsequently placed under observation for further management. Hospital Course: Patient admitted to the medical floor. Her Betapace was increased to 120 mg twice a day. Patient heart rate remained relatively elevated to the 120s. Echocardiogram was performed which showed normal ejection fraction. Cardiology team recommended addition of calcium channel kamron. Cardizem CD 120 mg daily was added. This helped improve her heart rate to the low 100s. The patient was noted to be debilitated during the hospital stay. She was seen and evaluated by physical therapy. Patient ambulated several feet without assistance. Physical therapist recommended continue PT at home. Patient is discharged with home health for PT. She was continued on anticoagulation with Eliquis during the hospital stay. Patient heart rate has improved. She is currently asymptomatic and deemed stable for discharge. Vital Signs/Physical Exam: Temp Pulse Resp BP Pulse Ox 97.6 F 110 H 18 110/64 95 05/05/20 08:00 05/05/20 08:00 05/05/20 08:00 05/05/20 08:00 05/05/20 08:00 General: Alert, In no apparent distress HEENT: Mucous membr. moist/pink Neck: JVD not distended Respiratory: Clear to auscultation bilaterally, Normal air movement Cardiovascular: No edema, Irregular heart rate/rhythm Gastrointestinal: Soft and benign, Non-distended Musculoskeletal: No swelling Integumentary: No rashes Neurological: Normal speech, Normal strength at 5/5 x4 extr Laboratory Data at Discharge: WBC 5.8 K/uL (4.3-10.9) D 05/01/20 04:02 Hgb 14.8 g/dL (12.0-15.0) 05/01/20 04:02 Hct 45.3 % (36.0-45.0) H 05/01/20 04:02 Plt Count 226 K/uL (152-406) 05/01/20 04:02 PT 19.3 SECONDS (9.5-12.5) H 04/30/20 20:42 INR 1.65 04/30/20 20:42 Sodium 142 mmol/L (136-145) 05/04/20 05:57 Potassium 4.1 mmol/L (3.5-5.1) 05/04/20 05:57 BUN 18 mg/dL (7-18) 05/04/20 05:57 Creatinine 1.03 mg/dL (0.55-1.3) 05/04/20 05:57 Glucose 110 mg/dL (74-106) H 05/04/20 05:57 Magnesium 2.0 mg/dL (1.8-2.4) 05/03/20 05:15 Total Bilirubin 0.7 mg/dL (0.2-1.0) 05/01/20 04:02 AST 40 U/L (15-37) H 05/01/20 04:02 ALT 26 U/L (12-78) 05/01/20 04:02 Alkaline Phosphatase 51 U/L (45-117) 05/01/20 04:02 Troponin I < 0.02 ng/mL (0.0-0.045) 05/01/20 08:18 Home Medications: Levothyroxine [Synthroid*] 125 mcg PO [id number] 04/19/17 Tramadol HCl [Ultram] 50 mg PO Q6HP PRN 04/19/17 Pantoprazole [Protonix Tab*] 40 mg PO DAILYAC #60 tab 04/21/17 Apixaban [Eliquis] 5 mg PO BID #60 tablet 05/05/20 Diltiazem Cd [Cardizem Cd*] 120 mg PO DAILY #30 cap 05/05/20 Sotalol HCl [Sotalol] 120 mg PO BID #60 tablet 05/05/20 New Medications: Diltiazem Cd [Cardizem Cd*] 120 mg PO DAILY #30 cap Apixaban [Eliquis] 5 mg PO BID #60 tablet Sotalol HCl [Sotalol] 120 mg PO BID #60 tablet Diet: AHA Activity: Fall precautions Followup: Tramaine Alcaraz MD [ACTIVE - CAN ADMIT] - 1-2 Weeks OOT,OOT [Primary Care Provider] - 1 Week Time spent managing pt's care (in minutes): 38
[2020-05-05] MEDS: APIXABAN 5 MG TABLET PO SCH (09:30)
[2020-05-05] MEDS: DILTIAZEM HCL 120 MG SR CAP PO SCH (09:30)
[2020-05-05 14:00] VITALS: BP 118/73; TEMP 97.2
--- NOTE | 2020-05-06 16:10 | EKG ---
Test Date: 2020-05-05 Test Time: 12:25:35 Talent Development Consultant: CINDI MEASUREMENT RESULTS: Intervals: Rate: 110 IN: QRSD: 78 QT: 316 QTc: 427 [place]: P: IN: QRS: -32 T: -38 INTERPRETIVE STATEMENTS: Atrial fibrillation with rapid ventricular response Left axis deviation Low voltage QRS Cannot rule out Anteroseptal infarct, age undetermined Abnormal ECG Compared to ECG 05/05/2020 12:23:05 Left-axis deviation now present Low QRS voltage now present Myocardial infarct finding now present Electronically Signed On 05-06-20 16:09:26 ZIG ZAG STITCHER by Tramaine Alcaraz
--- NOTE | 2020-05-06 16:10 | EKG ---
Test Date: 2020-05-05 Test Time: 12:23:05 Agricultural Produce Washer: CINDI MEASUREMENT RESULTS: Intervals: Rate: 0 ND: QRSD: 0 QT: 0 QTc: 0 [place]: P: ND: QRS: 0 T: 0 INTERPRETIVE STATEMENTS: No QRS complexes found, no ECG analysis possible Compared to ECG 05/01/2020 18:09:03 Atrial fibrillation no longer present Left-axis deviation no longer present Myocardial infarct finding no longer present Electronically Signed On 05-06-20 16:09:27 BUSINESS ADMINISTRATION PROFESSOR by Tramaine Alcaraz
== END 2020-05-05 14:51 | disposition home or self-care (01) | DRG 310 ==
LOC: ER 19:19 → ERHOLD 22:20 → 2ND 05-01 15:16 → OBSVTOIN 05-02 16:49
PROVIDERS: ADMIT Hospitalist; ATTEND Internal Medicine
DX: I48.0 Paroxysmal atrial fibrillation (principal); E03.9 Hypothyroidism, unspecified; E11.69 Type 2 diabetes mellitus with other specified complication; I10 Essential (primary) hypertension; K21.9 Gastro-esophageal reflux disease without esophagitis; I25.2 Old myocardial infarction; R53.81 Other malaise; Z88.1 Allergy status to other antibiotic agents; Z88.7 Allergy status to serum and vaccine; Z79.01 Long term (current) use of anticoagulants; Z79.890 Hormone replacement therapy; Z79.899 Other long term (current) drug therapy; Z20.828 Contact with and (suspected) exposure to other viral communicable diseases
CPT/HCPCS: 36415; 71045; 80048; 80053; 80076; 81003; 81015; 83735; 83880; 84132; 84439; 84443; 84484; 85025; 85610; 93005; 93306; 96374; 97110; 97112; 97116; 97161; 99285; U0003

== ENCOUNTER 2020-06-07 09:20 | Day surgery (SDC) | payer OTHER ==
[2020-06-06 15:02] LABS: Absolute Lymphocytes (CBC) 1.5 K/uL (0.7-4.9); Basophils % 1.2 % (0-1.3); Hematocrit 50.2 % (36.0-45.0); MPV 9.4 fL (7.6-11.3); RBC Red Blood Cell Count 5.24 M/uL (3.86-4.86)
[2020-06-06 15:05] LABS: Protime INR 1.6
[2020-06-06 15:14] LABS: Potassium 3.8 mmol/L (3.5-5.1)
[2020-06-07] MEDS ORDERED: NA CHLORIDE 0.9% 500 ML ONE ×2 (09:53→11:36)
--- OUTSIDE RECORDS SUMMARY | 2020-06-07 10:06 | XMS REPORT | Continuity of Care Document ---
:1935 Author Organization [facility] Care Team Providers Name Role Phone [facility] Unavailable Un available Problems Problem Status Onset Classification Date Comments Sourc e Date Reported A-FIB, PULMONARY Active 06/07/19 [facility] FLIGHT Active 06/07/19 [facility] TRANSFER [address] [place] [address] Final: Illness, 06/15/2016 [facility] Problem 06/15/2016 [place] disorder, Medical systemic arterial Ce nter (disorder) Hypothyroidism Resolved Problem 06/15/2016 [place] (disorder) [facility] Center ILLNESS, Active [facility] Medications Medication Details Route Status Patient Ordering Order Source Instructions Provider Date metoprolol 25 mg 75 mg = 3 tab, Active [facility] oral tablet, PO, Daily, # 2017 Medica l extended release 90 tab, 2 Cente r Refill(s) Furosemide 40 MG 40 mg = 1 tab, Active [facility] Oral Tablet PO, BID, # 60 2017 Medica l tab, 1 Center Refill(s) Furosemide 40 MG 40 mg = 1 tab, Inactive [facility] Oral Tablet [Lasix] PO, Q12H, # 60 2017 Medical tab, 2 Center Refill(s) lisinopril 5 mg oral 5 mg = 1 tab, Active 06/12 [facility] tablet PO, Daily, # 2017 Medical 30 tab, 2 Center Refill(s) metoprolol tartrate 25 mg = 1 tab, Inactive 7 [facility] 25 mg oral tablet NG, Q8H, # 90 2017 Medical tab, 2 Center Refill(s) aspirin 81 mg 81 mg = 1 tab, Active [facility] tablet, enteric PO, Daily, # 2017 Med ical coated 30 tab, 2 Center Refill(s) Furosemide 40 MG Notes: (Same No Longer [facility] Oral Tablet [Lasix] as: Lasix) Active 2016 M edical May cause GI Center upset. Give with food or milk. Calcium Gluconate Notes: WASTE: Inactive [facility] F/P - Sink; E 2017 [facility] Tr[facility] Furosemide 40 MG Notes: (Same No Longer [facility] Oral Tablet [Lasix] as: Lasix) Active 2017 M edical May cause GI Center upset. Give with food or milk. metoprolol tartrate Notes: (Same No Longer 06/10 [facility] as: Lopressor) Active 2017 [facility] [place] heparin Notes: porcine No Longer [facility] s heparin Active 2017 [facility] [place] Tylenol Notes: Max Inactive [facility] acetaminophen 2017 Medical 4000 mg/day (4 Center gm/day). (Same as: Tylenol Extra Strength) GI cocktail Notes: G.I. Inactive [place] neeta Cocktail = 2017 Medical antacid with Center simethicone 22.5 mL - lidocaine viscous 7.5 mL Tylenol Notes: Do not No Longer [facility] exceed 4 Active 2017 Medical gm/day. (Same Center as: Tylenol) atorvastatin 40 mg, Route: Inactive [place] PO, Drug form: 2017 Medical TAB, Bedtime, Center Dosing Weight 105.006, kg, Start date: 06/09/16 21:00:00 AIR BRAKE RIGGER, Duration: 30 day, Stop date: 07/08/16 21:00:00 AIR BRAKE RIGGER Chlorothiazide Notes: (Same Inactive [facility] As: Diuril 2017 Medical Sodium) [place] Lisinopril Notes: (Same No Longer [facility] as as: Prinivil, Active 2016 Medical Zestril) [place] Aspirin Notes: Do not No Longer [facility] crush or chew. Active 2017 Medical (Same As: Center Ecotrin) Lovenox 100 mg, Route: No Longer [facility] SUB-Q, Drug Active 2016 Medical form: INJ, Center [id number], Dosing Weight 105.006, kg, Start date: 06/09/16 10:00:00 AIR BRAKE RIGGER, Duration: 30 day, Stop date: 07/08/16 22:00:00 AIR BRAKE RIGGER Melatonin Notes: (Same Inactive [place] as: Melatonin) 2017 [facility] metoprolol tartrate Notes: (Same No Longer 06/09 [facility] as: Lopressor) Active 2017 Medical Center Dulcolax Laxative Notes: (Same No Longer [place] As: Dulcolax, Active 2016 [facility] Bisco-Lax) Center Lasix Notes: (Same No Longer [place] as: Lasix) Active 2016 Medical MEDICATION Center WASTE Product Size: 40 mg Product Wasted: _0__ mg chlorhexidine Notes: (Same Inactive [place] gluconate 1.2 MG/ML As: Peridex) 2017 Medical Mouthwash Center Saline Flush 0.9% Notes: Same No Longer [place] as: BD Active 2016 [facility] Posiflush Center Sterile pantoprazole Notes: For IV Inactive [place] push 2016 [facility] reconstitute [place] with 10 ml 0.9% sodium chloride and push over 2 minutes. (Same as: Protonix) Thyroxine Notes: Take 1 No Longer [facility] as hour before or Active 2016 Medical 2 hours after Center meal; Enteral feeds may interefere with the absorption of this medication. (Same as:Levothroid) heparin 5,000 unit, No Longer [place] Route: SUB-Q, Active 2016 Medical Q8H, kg, Start Center date: 06/08/16 0:00:00 AIR BRAKE RIGGER, Duration: 30 day, Stop date: 07/07/16 16:00:00 AIR BRAKE RIGGER ocular lubricant Notes: (Same Inactive [place] as: Duratears 2017 [facility] Naturale and Center Artificial Tears, Tears Again ) levothyroxine 125 125 microgram Active [place] mcg (0.125 mg) oral = 1 cap, PO, 2017 Medical capsule Daily Center Hydrochlorothiazide 1 tab, PO, Active H [place] 12.5 MG / Losartan Daily 2017 Medic al Potassium [address] Tablet sodium phosphate + 15 mmol, 5 mL, No Longer [place] sodium chloride 0.9% Route: IVPB, Active 2016 Medical INJ 250 mL PRN, Dosing Center Weight 105.006, kg, PRN Abnormal Lab Result, Start date: 06/07/16 22:56:00 AIR BRAKE RIGGER, Duration: 30 day, Stop date: 07/07/16 22:55:00 AIR BRAKE RIGGER, FOR ICU USE ONLY potassium chloride Notes: (Same No Longer [place] as: K-Dur 20) Active 2017 Medical "Do Not Crush" Center With food and full glass of water Magnesium Sulfate Notes: WASTE: No Longer [place] F/P - Sink; E Active 2017 [facility] Trash Bin potassium Notes: (Same No Longer [facility] s phosphate-sodium as: Phos-NaK) Active 2016 edical phosphate 250 mg-280 Each 1.5 gm Center mg-160 mg oral pkt has 250mg powder for phosphorous. reconstitution Mix w/2.5oz water and stir. Calcium Carbonate Notes: (Same No Longer [place] 500 MG Chewable As: Tums) Active 2016 Medica l Tablet Calcium Center Carbonate 500 mg = 200 mg elemental calcium Dose = mg calcium carbonate ( mg elemental calcium) Calcium Gluconate Notes: WASTE: No Longer [facility] F/P - Sink; E Active 2016 [facility] Bin Magnesium Oxide Notes: (Same No Longer [facility] as: Mag-Ox Active 2017 Medical 400) Magnesium Center oxide [id number] elemental magnesium Dose=____mg magnesium oxide (___mg elemental magnesium) potassium phosphate Notes: (Same No Longer 06/08 [place] + sodium chloride as: K Active 2016 Medica l 0.9% INJ 250 mL Phosphate.) 1 C enter mMol phoshate has 1.47 mEq potassium Infuse over 4 hours Furosemide Notes: (Same Inactive [facility] s as: Lasix) 2017 Medical MEDICATION Center WASTE Product Size: 40 mg Product Wasted: ___ mg metoprolol tartrate Notes: (Same No Longer 06/08 [facility] as: Lopressor) Active 2017 Medical 12.5 mg=1/2 X Center 50 mg TAB Heparin - one time 6,300 unit, Inactive [place] bolus for DVT/PE 6.3 mL, Route: 2017 Medical IV, Drug form: Center INJ, ONCE, Dosing Weight 105.006, kg, Start date: 06/07/16 22:28:00 AIR BRAKE RIGGER, Stop date: 06/07/16 22:28:00 AIR BRAKE RIGGER heparin additive 500 mL, Rate: No Longer [place] 25,000 unit [14 22.11 ml/hr, Active 2016 Med ical unit/kg/hr] + Premix Infuse over: Center Diluent Dextrose 5% 22.6 hr, 500 mL Route: IV, Dosing Weight 78.96 kg, Total Volume: 500 mL, Start date: 06/07/16 22:23:00 AIR BRAKE RIGGER, Duration: 30 day, Stop date: 07/07/16 22:22:00 AIR BRAKE RIGGER chlorhexidine Notes: (Same No Longer [facility] gluconate 1.2 MG/ML As: Peridex) Active 2016 [facility] Mouthwash [place] Saline Flush 0.9% Notes: Same No Longer [facility] as: BD Active 2016 [facility] Posiflush [place] Sterile Nystatin 100 UNT/MG Notes: (Same No Longer 06/08 [facility] Topical Powder as:Mycostatin, Active 2016 [place] Nilstat) For Center external use only. Fentanyl 1,000 No Longer [facility] microgram, 20 Active 2016 Medical mL, Rate: Center Titrate, Start Dose: 50 microgram/hr, Titration: 25 microgram/hour every 15 minutes, Goal(s): RASS -1, Max Dose: 300 microgram/hr, Route: IV, Total Volume: 20, Start date: 06/07/16 21:11:00 AIR BRAKE RIGGER, Duration: 30 day, Stop chris... Allergies, Adverse Reactions, Alerts No Known Medication Allergies Immunizations No Data Provided for This Section Results Order Name Results Value Reference Date Interpretation Comments Erika rce Range CHEM PANEL eGFR 57 06/12 Result Comment: The Medical eGFR is Center calculated using the CKD-EPI formula. In most young, healthy individuals the eGFR will be >90 mL/min/1.73m2 . The eGFR declines with age. An eGFR of 60-89 may be normal in some populations, particularly the elderly, for whom the CKD-EPI formula has not been extensively validated. Use of the eGFR is not recommended in the following populations:< br/>
Cathleen viduals with unstable creatinine concentration s, including patients and those with serious co-morbid conditions.<b r/>
Patie nts with extremes in muscle mass or diet.

The data above are obtained from the National Kidney Disease Education Program (NKDEP) which additionally recommends that when the eGFR is used in patients with extremes of body mass index for purposes of drug dosing, the eGFR should be multiplied by the estimated BMI. CHEM PANEL Potassium Lvl 4.0 3.5 - 5.1 06/12 [facility] CHEM PANEL Creatinine 0.94 0.50 - 06/12 [facility] Lvl 1.40 [facility] CHEM PANEL Sodium Lvl 140 135 - 145 06/12 [facility] CHEM PANEL Glucose Lvl 91 70 - 99 06/12 [facility] CHEM PANEL BUN 24 7 - 22 06/12 [facility] CHEM PANEL CO2 30 24 - 32 06/12 [facility] CHEM PANEL Chloride Lvl 100 95 - 109 06/12 [facility] CHEM PANEL Calcium Lvl 8.3 8.5 - 10.5 06/12 [facility] CHEM PANEL AGAP 14.0 10.0 - 06/[address] [facility] CHEM PANEL Magnesium Lvl 2.1 1.8 - 2.4 06/12 [facility] CHEM PANEL Phosphorus 3.3 2.5 - 4.5 06/12 [facility] HEMATOLOGY RDW 13.6 11.5 - [address] [facility] HEMATOLOGY Platelet 144 133 - 450 06/12 [facility] HEMATOLOGY MPV 11.6 7.4 - 10.4 06/12 [facility] HEMATOLOGY MCV 93.5 80.0 - 06/12 [place] 98.0 /2016 [facility] HEMATOLOGY MCHC 33.7 32.0 - [address] [place] [address] [facility] HEMATOLOGY MCH 31.5 27.0 - [address] [facility] HEMATOLOGY RBC 4.68 4.20 - [address] [place] [address] [facility] HEMATOLOGY Hgb 14.7 12.0 - [address] [place] [address] [facility] HEMATOLOGY Hct 43.8 36.0 - 02/ [place] 48.0 [facility] HEMATOLOGY WBC 9.5 3.7 - 10.[address] [facility] HEMATOLOGY Lymphocytes 21.8 20.0 - [address] [place] [address] [facility] HEMATOLOGY Segs 67.7 45.0 - [address] [place] [address] [facility] HEMATOLOGY Monocytes 9.4 2.0 - 12.0 06/[address] [facility] HEMATOLOGY Basophils # 0.1 0.0 - 0.2 06/[address] [facility] HEMATOLOGY Basophils 0.7 0.0 - 1.0 06/[address] [facility] HEMATOLOGY Eosinophils 0.4 0.0 - 4.0 06/[address] [facility] HEMATOLOGY Segs-Bands # 6.4 1.5 - 8.1 06/[address] [facility] HEMATOLOGY Monocytes # 0.9 0.0 - 0.8 06/[address] [facility] HEMATOLOGY Lymphocytes # 2.1 1.0 - 5.5 06/[address] [facility] CHEM PANEL Phosphorus 2.8 2.5 - 4.5 06/[address] [facility] CHEM PANEL Magnesium Lvl 2.0 1.8 - 2.4 06/[address] [facility] CHEM PANEL eGFR 57 06/11 [facility] Comment: The Medical eGFR is Center calculated using the CKD-EPI formula. In most young, healthy individuals the eGFR will be >90 mL/min/1.73m2 . The eGFR declines with age. An eGFR of 60-89 may be normal in some populations, particularly the elderly, for whom the CKD-EPI formula has not been extensively validated. Use of the eGFR is not recommended in the following populations:< br/>
Cathleen viduals with unstable creatinine concentration s, including patients and those with serious co-morbid conditions.<b r/>
Patie nts with extremes in muscle mass or diet.

The data above are obtained from the National Kidney Disease Education Program (NKDEP) which additionally recommends that when the eGFR is used in patients with extremes of body mass index for purposes of drug dosing, the eGFR should be multiplied by the estimated BMI. CHEM PANEL Glucose Lvl 91 70 - 99 06/[address] [facility] CHEM PANEL Alk Phos 69 39 - 136 06/11 [facility]2016 [facility] CHEM PANEL AST 45 0 - 37 06/11 [facility]2016 [facility] CHEM PANEL BUN 24 7 - 22 06/11 [facility]2016 [facility] CHEM PANEL Bili Total 1.1 0.2 - 1.3 02/ [address] CHEM PANEL ALT 20 0 - 65 02/ [address] CHEM PANEL Albumin Lvl 2.6 3.5 - 5.0 02/ [address] CHEM PANEL Total Protein 6.1 6.4 - 8.4 02/ [address] CHEM PANEL Calcium Lvl 8.3 8.5 - 10.[address] [facility] CHEM PANEL Potassium Lvl 3.7 3.5 - 5.[address] CHEM PANEL Sodium Lvl 139 135 - 145 02/ [address] CHEM PANEL Creatinine 0.94 0.50 - 02 [place] Lvl 1.40 /2016 [facility] CHEM PANEL CO2 27 24 - [address] CHEM PANEL Chloride Lvl 101 95 - [address] CHEM PANEL A/G Ratio 0.7 0.7 - 1.[address] CHEM PANEL Globulin 3.5 2.7 - 4.[address] CHEM PANEL B/C Ratio 26 6 - [address] CHEM PANEL AGAP 14.7 10.0 - [address] [facility] [address] [facility] HEMATOLOGY Basophils # 0.1 0.0 - 0.2 02/ [address] HEMATOLOGY Monocytes # 1.3 0.0 - 0.8 02 [facility] [address] [place] [address] HEMATOLOGY Eosinophils 0.3 0.0 - 4.[address] HEMATOLOGY Monocytes 11.3 2.0 - 12.0 02/ [address] HEMATOLOGY Segs-Bands # 7.5 1.5 - 8.1 02 [facility] [address] [place] [address] HEMATOLOGY Lymphocytes # 2.6 1.0 - 5.[address] HEMATOLOGY Basophils 0.7 0.0 - 1.0 02/ [address] HEMATOLOGY Lymphocytes 22.3 20.0 - 02/ [facility] [address] [facility] HEMATOLOGY Segs 65.4 45.0 - 02/ [place] [address] [facility] HEMATOLOGY MPV 10.1 7.4 - 10.4 06/11 [facility] HEMATOLOGY Platelet 138 133 - [address] [facility] HEMATOLOGY Hgb 15.2 12.0 - [address] [place] [address] [facility] HEMATOLOGY MCV 94.4 80.0 - [address] [facility] HEMATOLOGY WBC 11.5 3.7 - 10.[address] [facility] HEMATOLOGY RBC 4.84 4.20 - [address] [place] [address] [facility] HEMATOLOGY RDW 13.4 11.5 - [address] [facility] HEMATOLOGY MCH 31.3 27.0 - [address] [facility] [address] [facility] HEMATOLOGY MCHC 33.2 32.0 - [address] [facility] [address] [facility] HEMATOLOGY Hct 45.7 36.0 - 06/[address] [facility] [address] [facility] PARATHYROID Ca Ion WB 0.87 1.05 - 06/11 Result [facility] PROFILE 05.30 Comment: [facility] Critical Center Result(s) called to Navid Fernandez at 06/11/2016 04:27 by APRIL. Read back OK. PARATHYROID Ca Norm WB 0.91 1.05 - 06/11 [facility] PROFILE 05.30 [facility] CARDIAC Troponin-I 0.44 0.00 - 06/10 [facility] ENZ[address]ES [address]. [facility] ELECTROLYTE Potassium Lvl 3.9 3.5 - 5.1 06/[address] [place] [address] [facility] CHEM PANEL Phosphorus 3.1 2.5 - 4.5 06/10 [facility] CHEM PANEL Magnesium Lvl 1.7 1.8 - 2.4 06/[address] [place] [facility] CHEM PANEL eGFR 48 06/10 Result Comment: The Medical eGFR is Center calculated using the CKD-EPI formula. In most young, healthy individuals the eGFR will be >90 mL/min/1.73m2 . The eGFR declines with age. An eGFR of 60-89 may be normal in some populations, particularly the elderly, for whom the CKD-EPI formula has not been extensively validated. Use of the eGFR is not recommended in the following populations:< br/>
Cathleen viduals with unstable creatinine concentration s, including patients and those with serious co-morbid conditions.<b r/>
Patie nts with extremes in muscle mass or diet.

The data above are obtained from the National Kidney Disease Education Program (NKDEP) which additionally recommends that when the eGFR is used in patients with extremes of body mass index for purposes of drug dosing, the eGFR should be multiplied by the estimated BMI. CHEM PANEL AGAP 13.9 10.0 - [address] [facility] CHEM PANEL Calcium Lvl 8.2 8.5 - 10.[address] [facility] CHEM PANEL Chloride Lvl 101 95 - [address] [facility] CHEM PANEL CO2 30 24 - 32 06/[address] [facility] CHEM PANEL BUN 21 7 - 22 06/[address] [facility] CHEM PANEL Creatinine 1.08 0.50 - 06/10 [facility] Lvl [address].40 [facility] CHEM PANEL Glucose Lvl 108 70 - [address] CHEM PANEL Sodium Lvl 142 135 - [address] [facility] HEMATOLOGY MCV 93.7 80.0 - [address] [facility] HEMATOLOGY MCH 30.9 27.0 - [address] [facility] HEMATOLOGY MCHC 33.0 32.0 - [address] [facility] HEMATOLOGY RBC 4.59 4.20 - [address] [facility] HEMATOLOGY Hgb 14.2 12.0 - [address] [facility] HEMATOLOGY Hct 43.0 36.0 - [address] [facility] HEMATOLOGY RDW 13.2 11.5 - [address] [facility] HEMATOLOGY WBC 10.4 3.7 - 10.4 06/10 [facility]2016 [facility] HEMATOLOGY MPV 10.2 7.4 - 10.4 06/[address] HEMATOLOGY Platelet 160 133 - [address] HEMATOLOGY Segs 73.1 45.0 - 02/[address] [place] [address] [facility] HEMATOLOGY Basophils # 0.1 0.0 - 0.2 02[place] [facility] HEMATOLOGY Lymphocytes 16.1 20.0 - 02 [place] 40.0 /2017 [facility] HEMATOLOGY Lymphocytes # 1.7 1.0 - 5.[address] [facility] HEMATOLOGY Monocytes # 1.0 0.0 - 0.8 02/ a s [facility] HEMATOLOGY Segs-Bands # 7.6 1.5 - 8.1 06/10 [facility] HEMATOLOGY Basophils 0.6 0.0 - 1.0 02/ [facility] HEMATOLOGY Eosinophils 0.2 0.0 - 4.[address] [facility] HEMATOLOGY Monocytes 10.0 2.0 - 12.0 06/10 [facility] PARATHYROID Ca Norm WB 1.05 1.05 - 06/[address] [place] [address] [facility] PARATHYROID Ca Ion WB 1.05 1.05 - 06/[address] [place] [address] [facility] CARDIAC Troponin-T 0.215 0.000 - 06/09 Result [place] ENZYMES 0.100 Comment: Medical Critical Center Result(s) called to Linda Seals at 06/09/2016 16:11 by . Read back OK. CARDIAC Troponin-I 1.13 0.00 - 06/09 Result [facility] ENZYMES 0.40 Comment: Medical Critical Center Result(s) called to Linda Seals at 06/09/2016 16:48 by . Read back OK. CARDIAC Total CK 117 12 - 191 06/09 [facility] CARDIAC CK MB Index 5.2 0.0 - 2.5 / [facility] ENZYMES [facility] CARDIAC CK MB 6.1 0.5 - 3.6 06/[address] [facility] CHEM PANEL LDH 301 98 - 192 02/ [facility] CHEM PANEL AST 29 0 - 37 02/ [facility] CHEM PANEL Alk Phos 69 39 - 136 06/[address] [facility] CHEM PANEL Bili Total 0.8 0.2 - 1.3 / [facility] CHEM PANEL A/G Ratio 0.8 0.7 - 1.6 06/09 [facility] CHEM PANEL ALT 19 0 - 65 06/09 [facility] CHEM PANEL Total Protein 6.0 6.4 - 8.4 06/09 [place] [facility] CHEM PANEL Albumin Lvl 2.7 3.5 - 5.0 06/[address] [place] [address] [facility] CHEM PANEL B/C Ratio 15 6 - 25 06/09 [facility] CHEM PANEL Globulin 3.3 2.7 - 4.2 06/09 Medical Center BODY FLUIDS LDH BF 127 06/09 Medical Center BODY FLUIDS LDH BF Type Pleural 06/09 [place] *NA* Medical (06/09/16 2:25 PM) Center BODY FLUIDS Gluc BF Type Pleural 06/09 [place] *NA* [facility] (06/09/16 2:25 PM) Center BODY FLUIDS Glucose BF 132 06/09 Medical Center BODY FLUIDS Protein BF 1.7 06/09 [facility] [place] BODY FLUIDS Prot BF Type Pleural 06/09 [place] *[place] [facility] (06/09/16 2:25 PM) Center BODY FLUIDS Clarity BF Clear Clear 06/09 (06/09/16 2:25 PM) Medical Center BODY FLUIDS WBC BF 495 06/09 [facility] Center BODY FLUIDS Supernat BF Yellow Colorless 06/09 [facility] *ABN* Medical (06/09/16 2:25 PM) Center BODY FLUIDS RBC BF 385 06/09 [facility] BODY FLUIDS CellCnt BF Pleural 06/09 [place] Type (06/09/16 2:25 PM) Medical Center BODY FLUIDS Color BF Yellow Colorless 06/09 [place] (06/09/16 2:25 PM) Medical Center BODY FLUIDS Segs BF 24 06/09 Medical Center BODY FLUIDS Macrophage BF 31 06/09 [facility] Center BODY FLUIDS Lymph BF 41 06/09 Medical Center BODY FLUIDS [place] BF Occasional 06/09 [place] (06/09/16 2:25 PM) Medical Center BODY FLUIDS Prot BF Type Pleural 06/09 [place] *NA* Medical (06/09/16 2:07 PM) Center BODY FLUIDS Protein BF 1.6 06/09 Medical Center BODY FLUIDS LDH BF 91 06/09 [facility] BODY FLUIDS LDH BF Type Pleural 06/09 [place] *NA* Medical (06/09/16 2:07 PM) Center BODY FLUIDS Glucose BF 128 06/09 [facility] [place] BODY FLUIDS Gluc BF Type Pleural 06/[place] *[place] Medical (06/09/16 2:07 PM) Center BODY FLUIDS WBC BF 415 06/09 [facility] [place] BODY FLUIDS Supernat BF Yellow Colorless 06/09 [facility] [facility] *ABN* Medical (06/09/16 2:07 PM) Center BODY FLUIDS RBC BF 1880 06/09 [facility] BODY FLUIDS Clarity BF Slight Cloudy Clear 06/09 [facility] (06/09/16 2:07 PM) [facility] [place] BODY FLUIDS Color BF Yellow Colorless 06/09 [facility] (06/09/16 2:07 PM) [facility] [place] BODY FLUIDS CellCnt BF Pleural 06/09 [place] Type (06/09/16 2:07 PM) [facility] [place] BODY FLUIDS [place] BF Occasional 06/09 [facility] (06/09/16 2:07 PM) [facility] [place] BODY FLUIDS Eos BF 1 06/09 [facility] BODY FLUIDS Macrophage BF 26 06/09 [facility] [place] BODY FLUIDS Lymph BF 48 06/09 [facility] BODY FLUIDS Segs BF 25 06/09 [facility] BODY FLUIDS Albumin BF 1.1 06/09 [facility] BODY FLUIDS Alb BF Type Pleural 06/09 [place] *NA* Medical (06/09/16 2:07 PM) Center PARATHYROID Ca Ion WB 1.03 1.05 - [address] [place] [address] [facility] PARATHYROID Ca Norm WB 1.01 1.05 - 06/[address] [place] [address] [facility] [facility] CARDIAC Troponin-I 1.59 0.00 - 02 Result [facility] ENZYMES 0.40 Comment: [facility] Result(s) called to Tej Chisholm at 06/08/2016 15:18 byJPete. Read back OK. HEMATOLOGY PTT 111.8 22.9 - 02 Result [place] 35.8 /2017 Comment: [facility] Result(s) called to Neena Sharma at 06/08/2016 12:56 by Emily Garcia. Read back OK. CHEM PANEL Lactic Acid 1.9 0.5 - 2.2 06/[address] [facility] HEMATOLOGY PTT 189.0 22.9 - 06/08 Result [facility] 35.8 /2016 Comment: [facility] Result(s) called to enma chu at 06/08/2016 05:22 bysss. Read back OK. HEMATOLOGY Tot Cell Ct 100 06/08 [facility] HEMATOLOGY Atypical 0.0 <=0.0 % 06/[address] [facility] [address] [facility] HEMATOLOGY Plt Morph Normal 06/08 [facility] (06/08/16 4:35 AM) /2016 [facility] HEMATOLOGY RBC Morph Normal 06/08 [facility] (06/08/16 4:35 AM) /2016 [facility] HEMATOLOGY Bands 0.0 0.0 - 11.0 06/[address] [facility] BACTERIAL - MRSA by PCR Negative 06/08 [facility] s SEROLOGY (06/07/16 9:37 PM) /2016 [facility] CARDIAC BNP 239 <=100 06/08 [facility] ENZYMES pg/mL /2016 [facility] CARDIAC Total CK 187 12 - 191 06/[address] [facility] [address] [facility] CHEM PANEL Procalcitonin <0.05 0.00 - 06/08 [facility] s Lvl ng/mL 0.10 [facility] CHEM PANEL Ammonia 40.0 <=45.0 06/08 [facility] uMol/L [facility] CHEM PANEL Lactic Acid 2.2 0.5 - 2.2 06/[address] [facility] CHEM PANEL A/G Ratio 0.8 0.7 - 1.6 06/[address] [facility] CHEM PANEL Globulin 3.5 2.7 - 4.2 06/[address] [facility] CHEM PANEL B/C Ratio 13 6 - 25 06/08 [facility] [address] [place] [address] CHEM PANEL Total Protein 6.4 6.4 - 8.4 06/[address] [place] [facility] CHEM PANEL Albumin Lvl 2.9 3.5 - 5.0 06/[address] [facility] CHEM PANEL AST 33 0 - 37 06/[address] [facility] CHEM PANEL ALT 26 0 - 65 06/[address] [facility] CHEM PANEL Bili Total 1.0 0.2 - 1.3 06/08 [facility] CHEM PANEL Alk Phos 74 39 - 136 06/08 [facility] DRUG SCREEN U Opiate Scr Positive Negative 06/08 [place] *ABN* [facility] (06/07/16 9:37 PM) Center DRUG SCREEN U Phencyc Scr Negative Negative 06/08 [place] *NA* Medical (06/07/16 9:37 PM) Center DRUG SCREEN U Cocaine Scr Negative Negative 06/08 [place] *NA* [facility] (06/07/16 9:37 PM) Center DRUG SCREEN U Cannab Scr Negative Negative 06/08 [place] *NA* [facility] (06/07/16 9:37 PM) Center DRUG SCREEN UDS Note See Note 06/08 [facility] (06/07/16 9:37 PM) [facility] Center DRUG SCREEN U Mindy Scr Negative Negative 06/08 [place] *NA* [facility] (06/07/16 9:37 PM) Center DRUG SCREEN U Benzodia Positive Negative [place]/08 [place] *ABN* [facility] (06/07/16 9:37 PM) Center DRUG SCREEN U Amph Scr Negative Negative 06/08 [place] *NA* [facility] (06/07/16 9:37 PM) Center HEMATOLOGY PTT 45.5 22.9 - 06/[address] [facility] [address] [facility] HEMATOLOGY INR 1.38 0.85 - 06/[address] [facility] [address] [facility] HEMATOLOGY PT 17.2 12.0 - 06/[address] [facility] [address] [facility] LIPIDS HDL 63 >=61 mg/dL 06/08 [facility] LIPIDS Chol 164 <=199 06/08 [facility] mg/dL [facility] LIPIDS LDL 88 <=99 mg/dL 06/08 [facility] (Calculated) [facility] LIPIDS VLDL 13 06/08 [facility] LIPIDS Trig 63 <=149 06/08 [facility] mg/dL [facility] LIPIDS CHD Risk 2.60 3.90 - 06/[address] [facility] [address] [facility] SPECIAL Hgb A1C 6.0 <=5.6 % 06/[address] [facility] [address]STRY [facility] URINE AND UA <=1.0 0.1 - 1.0 06/08 [facility] STOOL Urobilinogen mg/dL /2016 [facility] URINE AND UA Hyal Cast 11 0 - 2 06/[address] [facility] URINE AND UA Sq Epi None Seen 06/[address] [facility] URINE AND UA Leuk Est Negative Negative 06/08 [facility] (06/07/16 9:37 PM) [facility] URINE AND UA WBC 1 0 - 5 06/[address] [facility] URINE AND UA RBC 3 0 - 2 06/[address] [facility] URINE AND UA Protein Negative Negative 06/08 [facility] STOOL mg/dL mg/dL [facility] URINE AND UA Glucose Negative Negative 06/08 [facility] mg/dL mg/dL [facility] URINE AND UA Bacteria Occasional None Seen 06/08 [place] STOOL /HPF /HPF [facility] URINE AND UA Mucus Few /LPF None Seen 06/08 [facility] STOOL /LPF /2016 [facility] URINE AND UA Ketones Negative Negative 06/08 [facility] mg/dL mg/dL [facility] URINE AND UA Nitrite Negative Negative 06/08 [facility] (06/07/16 9:37 PM) [facility] URINE AND UA Bili Negative Negative 06/08 [facility] *NA* /2016 [facility] (06/07/16 9:37 PM) [place] URINE AND UA Blood Trace Negative 06/08 [facility] *ABN* /2016 [facility] (06/07/16 9:37 PM) [place] URINE AND UA Color Light Yellow Yellow 06/08 [facility] *NA* /2016 [facility] (06/07/16 9:37 PM) [place] URINE AND UA Spec Grav 1.020 <=1.030 06/[address] [facility] URINE AND UA pH 5.5 5.0 - 8.0 06/[address] [facility] URINE AND UA Turbidity Clear Clear 06/08 [facility] (06/07/16 9:37 PM) [facility] Pathology Reports No Data Provided for This Section Diagnostic Reports Report Value Date Source Chest 1view DX EXAM: XR CHEST 1 VIEW 06/11/2016 [facility] edical DATE: 06/11/2016 3:00 AM [facility] INDICATION: Abnormal chest sounds. FINDINGS: Comparison is made to June 09. The cardiomediastinal silhou ette is stable. The right hemidiaphragm is elevated. Subsegmental atelectasis is seen in both lung bases, greater on the right. There is a small right pleural effusion. IMPRESSION: No significant change. Chest 1view DX EXAM: XR CHEST 1 VIEW 06/09/2016 [facility] edical DATE: 06/09/2016 2:24 PM [facility] INDICATION: Pleural effusion COMPARISON: 06/09/2016 TECHNIQUE: AP chest FINDINGS: Stable cardiomedi astinal silhouette. Calcified aortic arch. Persistence although decrease in right greater than left pleural effusions with basilar atelectasis or consolidation. Prominence of the central perihilar interstitial markings. No perceptible pneumothorax. IMPRESSION: Persistence alt mabel decrease in right greater than left pleural effusions with basilar atelectasis or consolidation. Chest 1view DX EXAM: XR CHEST 1 VIEW 06/09/2016 [facility] DATE: 06/09/2016 3:00 AM [facility] INDICATION: Chest pain COMPARISON: Yesterday TECHNIQUE: AP chest IMPRESSION: Removal of ET an d NG tubes. Stable cardiomediastinal silhouette. Calcified aortic arch. There are persistent bilateral pleural effusions with basilar atelectasis or consolidation. Prominence of the central perihilar interstitial markings. No perceptible pneumothorax. Chest 1view DX EXAM: XR CHEST 1 VIEW 06/08/2016 [facility] ed[facility] DATE: 06/08/2016 6:49 AM [facility] INDICATION: Abnormal chest sounds COMPARISON: Chest radiograph one day previous TECHNIQUE: AP chest FINDINGS: Lines, tubes and hardware: I nterval intubation with tip of endotracheal tube approximately 8 cm above the valery. Interval placement of nasogastric tube seen coursing below diaphragm. Lungs and pleura: Stable int erstitial and airspace opacities, most prominent on the right, given differences in technique. No significant change in bilateral pleural effusions with posterior layering on the right. Heart and mediastinum: The h eart size is stable. The mediastinal contours are normal. Bones: No acute bony abnormality is identified. IMPRESSION: 1. Interval intubation with tip of endotracheal tube 8 cm above the valery recommend. Advancement of 4 cm recommended. Interval placement of nasogastric tube. 2. Bilateral pleural effusi ons with bibasilar atelectasis and/or pneumonia, stable. Abdomen AP DX EXAM: XR ABDOMEN 1 VIEW 06/07/2016 [facility] DATE: 06/07/2016 11:08 PM [facility] INDICATION: Tube placement/removal/reposition TECHNIQUE: AP view of the abdomen. FINDINGS: The tip of an NG tube is over the right side of L2 placing it in the distal stomach. A 3.1 cm rounded structure w ith rim-like calcification is projected over the midline at the L2 level. A prior computed tomography scan showed that this is a gallstone. Graft the bowel gas pattern shows no dilated loops of large or small bowel. There is dense airspace dise ase in both lung bases. Right pleural effusion is present, and there is likely at least a small pleural effusion on the left. IMPRESSION: 1. The NG tube is in good position. Chest 1view DX EXAM: XR CHEST 1 VIEW 06/07/2016 [facility] DATE: 06/07/2016 9:16 PM [facility] INDICATION: Abnormal chest sounds COMPARISON: None FINDINGS: ET tube with tip above the c gregorio and NG tube with side holes below the GE junction present. The cardiac silhouette is enlarged. Moderate bilateral interstitial/airspace opacities are present with small to moderate bilateral pleural effusions. IMPRESSION: 1. Support lines and tubes as above. 2. Cardiomegaly with bilate ral interstitial/airspace opacities and pleural effusions consistent with volume overload. Superimposed pneumonia not excluded. Consultation Notes No Data Provided for This Section Discharge Summaries No Data Provided for This Section History and Physicals No Data Provided for This Section Vital Signs Vital Sign Value Date Comments Source Temperature Oral (F) 97.2 F 06/12/2016 [facility] Systolic (mm Hg) 126 06/12/[address] [facility] [place] [place] Diastolic (mm Hg) 71 06/12/2016 [facility] Respitory Rate 17 06/12/2016 [facility] Heart Rate 92 06/12/2016 [facility] Respitory Rate 18 06/12/2016 [facility] Heart Rate 84 06/12/2016 [facility] Systolic (mm Hg) 112 06/12/[address] [facility] [place] [place] Diastolic (mm Hg) 63 06/12/2016 [facility] Respitory Rate 18 06/12/2016 [facility] Temperature Oral (F) 97.5 F 06/12/2016 [facility] Temperature Oral (F) 98.4 F 06/12/2016 [facility] Heart Rate 90 06/12/2016 [facility] Systolic (mm Hg) 105 06/12/2016 [facility] [place] Diastolic (mm Hg) 61 06/12/2016 [facility] Height 170.18 cm 06/08/2016 [facility] Height 170.18 cm 06/08/2016 [facility] Height 170.18 cm 06/08/2016 [facility] BMI Calculated 36.26 06/08/2016 [facility] Weight 105.006 06/08/2016 [facility] Encounters Location Location Encounter Encounter Reason Attending ADM DC Stat us Source Details Type Number For Provider Date Date Visit [facility] [id number] [place] 06/08 06/12 [facility] Rittg /2016 [facility] Procedures No Data Provided for This Section Assessment and Plan Assessment and Plan Date Source Extracted from:Title: Medicine Team B Discharge Summary 11/2016 [facility] Author: Austin Padron MD Date: 06/12/16 Admission/Discharge Dates: 06/07/16 Admission/Discharge Diagnoses: 06/12/16 Service: Medicine Team B Consults: Cardiology Procedures: thoracentesis TTE: 1) Left ventricle is normal in cavity size and wall thi ckness. The left ventricular systolic function is severely impaired with an e stimated LV ejection fraction of 25-30%. Only the basal segments demonst rate some contractility and the other segments are akinetic. No intrac avitary mass or thrombus is seen. 2) Right ventricle is mildly dilated. The RV apex and free w all of the right ventricle are akinetic. In the presence of pulmonary e mbolism, this finding is consistent with significant RV strain. 3) Both atria are normal in size. 4) Mild-moderate mitral regurgitation is noted. 5) There are no other significant valvular abnormalities. 6) Estimated RVSP Is 43 mmHg but could be underestimated. 7) There is a small pericardial effusion and a large left-si ded pleural effusion. 8) The inferior vena cava is dilated. 9) There is no previous study for comparison. History: Justo Kim is an 81 y/o F with PMH o f hypothyroidism and HTN who presents to [facility] as transfer from [place] for HLOC. On 06/01 had SOB and racing heart for the past 3 days. On initial pr esentation to ER she was found to be in Afib with RVR to 190s. She was given 6mg adenosine without response and was then cardioverted with 100 J and converted to sinus rhythm. She was then put on 15L no n-rebreather and was saturating 92%. She was intubated for hypoxemic respiratory failure. ABG on the vent was 7.32/42/171 on AC 14/500/100%. Electrolytes were WNL. Glc was 199. Creatinine was 1.00 with eGFR 53 (unknown baseline). BNP was 335. No leukocytosis or anemia on CBC. CKMB was 8.2 and troponin was 0.04. LFTs and INR were WNL. There was concern for PE but CTA was negative but did show a calcifi ed hepatic mass, bilateral pleural effus ions, and possible pulmonary edema. She was given 40 mg IV Lasix. EKG not concerning for acute coronary syndrome. Hospital course in [facility] as outlined below: 2: Extubated; on HFNC Diffuse pulm edema. Inc metop for ra te control. 06/09: Weaned to wall O2 from HFNC. Hep gt t stopped as tropinemia determined to be 2/2 demand ischemia and pt had minor haemoptysis x1. ASA/Statin, lisinopril, and lasix started. Bilateral thoracenteses d one; 600 from R, 800 from L, and transud ative in nature; pt improved thereafter. Transfer order for [facility]. 06/10: 16-beat run of V-tach on tele @ 160 0 on 08/07; trops 1.13 at that time. NAEON; questionable, mild haemoptysis; mild haematuria, though pt was pulling at [place] just before. On RA since thoracentesis a nd denies dyspnea now; pt endorses mild back pain at sites; pt also endorsing mild lower abdominal pain and diarrhoea; per nurse, pt had 1 loose stool and has otherwise only been flatulant. Today, @ 134 0, pt had intermittent AVNRT on tele and inverted T-waves on EKG; normotensive and asymptomatic; Cards consulted and recommended repeat Trop as well as inc Metop. Trop negative. 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 Pt transferred to floor on 06/10. On floor status pt had intermittent PVC, however no runs of V Tach. HR controlled on metoprolol. Pt was counseled extensively on the risks and benefits of anticoagulatio n. She was made aware that we recommend anticoagulation for her A fib (CHADS- VASC Score 4, HASBLED 1). She was counseled on risk of bleeding/hemorrhage with anticoagulation, as well as the risk of strok e or embolism to the systemic circulatio n. Options for anticoagulation with warfarin (w/ need for weekly INR checks) as well as newer oral anticoagulants (i.e. Xarelto) were discussed. She was made awar e that warfarin has reversal agents kevin nael xarelto does not. At this time pt and son do not want to proceed with anticoagulation. They want to defer starting until they visit PCP. Pt was also seen by [facility] life [facility] department given her signif icant CHF. Life vest dept planned to deliver life vest prior to discharge, however pt's family had time restrictions and therefore pt agreed to have life ves t delivered to her house after discharge . She understood the risk of from not having life vest prior to discharge. Of note, pt lives in [facility] and plans to have follow up with PCP and cio in [place] hometown. Physical Exam: Gen: AAOx3, NAD. +obese HEENT: PERRL, EOMI, oropharynx clear no erythema or exudates Neck: Supple, trachea midline, no LAD Heart: regular rate and rhythm, no murmu rs appreciated, pulses + and equal in all extremities Lungs: Clear to auscultation bilaterally, no wheezes or crac kles Abd: soft, non-tender to palpation, ying l sounds present, no guarding or rigidity Neuro: CN II-XII grossly intact, sensati on grossly intact to light touch, proprioception intact, strength 5/5 in all extremities. MSK: no muscle atrophy, no joint redness , swelling or tenderness. +BLE pitting edema Discharge Condition:stable Disposition: home Medications: aspirin 81mg daily, metopro lol succinate 75mg daily, lasix 40mg daily, lisinopril 5mg daily + home medications Follow-up: Dr. Mann (PCP) in [address] Orellana (Cardiolo gist) in 1 week I have seen and examined the patient wit h the resident on 06/13/2016, and I agree with his/her assessment and plan with the following addendums if applicable: Acute respiratory failure with hypoxia (J96.01) Acute on chronic systolic (congestive) heart failure (I50.23 ) Unspecified atrial fibrillation (I48.91) Essential (primary) hypertension (I10) Lalo Luu MD [facility] Internal [facility] Extracted from:Title: Cardiology Progress Note Author: Merlyn Paz MD Date: 06/12/16 Patient: JUSTO KIM MR N: [id number] Age: 81 years Sex: Female : 1935 Associated Diagnoses: None Author: Merlyn Paz MD Subjective Pt states she gets a little tired with exertion. Otherwise f eels well Health Status Allergies: Allergic Reactions (All) Severity Not Documented NKDA- No reactions were documented. Objective Meds Scheduled Meds (8):aspirin, (Suspended) enoxaparin (Lovenox), furosemide (Lasix 40 mg oral tablet), heparin, levothyroxine, lisinopril, metoprolol (metoprolol tartrate), sodium chloride (Saline Flush 0.9%) Unscheduled Meds: None PRN Meds (4):acetaminophen (Tylenol), bi sacodyl (Dulcolax Laxative), nystatin topical (nystatin topical 100,000 units/g powder), sodium chloride (Saline Flush 0.9%) One Time Meds (1):(Completed) calcium gl uconate + sodium chloride 0.9% INJ 80 mL Continuous Infusions: None I&O Input/Output Record In Out Bal 06/12 24hr Tot 10 0 10 06/11 24hr Tot 1140 0 1140 VS/Measurements Measurements from flowsheet : Measurements 06/10/2016 06:13 Weight Collection Method Measured Current Weight 103.2 kg Weight Difference Percent -2.18 % , Vital Signs (last 24 hrs) Last Charted _ Temp Oral 97.2 DegF (JUN 12 08:05) Heart Rate Peripheral 92 bpm (JUN 12 08:05) Resp Rate 17 BRMIN (JUN 12 08:05) SBP 126 mmHg (JUN 12 08:05) DBP 71 mmHg (JUN 12 08:05) SpO2 95 % (JUN 12 08:05) Physical Exam: Gen: A&Ox3, Resting comfortably in chair HENT: NCAT, nasal septum midline Eyes: EOMI, Conjuctiva clear no pallor Cardio: Regular rate and rhythm, no murmurs, normal peripher al perfusion Lungs: Clear to auscultation bilaterally, no increased work of breathing Abdomen: Soft, nontender, normal bowel sounds, no rebound no guarding Extremities: Trace edema, No clubbing cyanosis Skin: Warm, dry, intact. No rashes or ulcers Neuro: CN II-XII intact. No focal deficits Review / Management Results review: Labs (Last four charted values) WBC 9.5 (JUN 12) H 11.5 (JUN 11) 10.4 (JUN 10) H 11.8 (JUN 09) Hgb 14.7 (JUN 12) 15.2 (JUN 11) 14.2 (JUN 05) 15.7 (JUN 09) Hct 43.8 (JUN 12) 45.7 (JUN 06) 43.0 (JUN 05) 47.4 (JUN 04) Plt 144 (JUN 12) 138 (JUN 06) 160 (JUN 05) 199 (JUN 04) Na 140 (JUN 07) 139 (JUN 06) 142 (JUN 05) 140 (JUN 04) K 4.0 (JUN 12) 3.7 (JUN 11) 3.9 (JUN 10) C 2.9 (JUN 05) CO2 30 (JUN 12) 27 (JUN 06) 30 (JUN 05) 27 (JUN 09) Cl 100 (JUN 07) 101 (JUN 06) 101 (JUN 05) 102 (JUN 09) Cr 0.94 (JUN 12) 0.94 (JUN 06) 1.08 (JUN 05) 1.20 (JUN 09) BUN H 24 (JUN 07) H 24 (JUN 06) 21 (B 05) 18 (B 04) Glucose Random 91 (JUN 07) 91 (JUN 06) H 108 (B 05) H 208 (JUN 09) Mg 2.1 (JUN 12) 2.0 (JUN 11) L 1.7 (JUN 10) 1.8 (JUN 09) Phos 3.3 (JUN 12) 2.8 (JUN 11) 3.1 (JUN 10) 3.3 (JUN 09) Ca L 8.3 (JUN 12 ) L 8.3 (JUN 11) L 8.2 (JUN 10) L 8.4 (JUN 09) PT H 17.2 (JUN 07) INR H 1.38 (JUN 07) PTT C 111.8 (JUN 08) C 189.0 (JUN 08) H 45.5 (JUN 07) Troponin H 0.44 (Jun 5) C 1.13 (JUN 09) C 1.59 (JUN 08) C 1.77 (JUN 08) CK MB H 6.1 (JUN 09) Total CK 117 (JUN 09) 187 (JUN 07) . Impression and Plan Patient is a 81 year old woman with PMH of HTN and hypothyroidism who was admitted to the MICU on 06/07/15 as a transfer from [place], after she was admitted there for shortness of breath, lower ex tremity edema and palpitations x 3 days, found to have atrial fibrillation with RVR to the 190s, successfully cardioverted with 100J, then intubated for hypoxemic respiratory failure. The patient develo ped a self-limited run of AVNRT on telem etry along with inverted T waves on EKG, so Cardiology was asked to evaluate. -- on review of telemetry 06/10/16, the pa karla's run of SVT appeared to be consistent with AVNRT -- no further SVT on tele although some bigiminy noted -- switch metoprolol tartrate to succinate upon discharge -- previous troponin elevation is likely due to supply-demand mismatch, given that her pre-test probability for mild CAD is high -- recommend continuing medical manageme nt with ASA, statin, beta kamron and ACEi -- recommend outpatient ischemic workup with cath, TTE results given to patient prior to discharge Merlyn Paz MD Internal Medicine PGY3 PGR [id number] Addendum by Kristan Reynolds MD on 06/13/2016 09:33 Cardiology Attending I have seen and examined the patient wit h the resident/fellow. I agree with the assessment and plan. Kristan Reynolds MD #[id number] Extracted from:Title: Cardiology Consult Note Author: Juanita Rivero MD Date: 06/10/16 Assessment/Plan Patient is a 81 year old woman with PMH of HTN and hypothyroidism who was admitted to the MICU on 06/07/15 as a transfer from [place], after she was admitted there for shortness of breath, lower ex tremity edemaand palpitations x 3 days, found to have atrial fibrillation with RVR to the 190s, successfully cardioverted with 100J, then intubated for hypoxemic respiratory failure and transferred for higher level of care. Due to concern for PE, CTA was ordered, and was negative for PE, but did show a calcified hepatic mass, bilateral pleural effusions and possible pulmonary edema. She was extubated on 06/08 to high-flow oxygen. She was note d to have a troponin elevation peaking at 1.77, thought to be due to demand in the setting of respiratory failure and intermittent tachycardia. TTE showed an EF o f 25-30% with significant apical hypokin esis with relative sparing of the base, along with RV dilatation and apical akinesis suggestive of right heart strain. She underwent bilateral thoracenteses, with significant improvement of her symptoms . That night, she had a run of non- sustained ventricular tachycardia, without any hemodynamic instability or symptoms at the time. Today, at 1340, the patient dev eloped a self-limited run of AVNRT on te lemetry along with inverted T waves on EKG, so Cardiology was asked to evaluate. -- on my review of telemetry, the patien t's run of SVT appears to be consistent with AVNRT -- recommended increasing metoprolol to 25 mg q8h -- EKG changes reviewed, and as they are diffusely inverted in the anterior leads, they could be consistent with ischemia vs TAIL RIPPER changes (despite absence of any acute TAIL RIPPER issues) vs Takotsubo's? -- TTE findings could be consistent with Takotsubo's, but to formally make that diagnosis, ischemia would need to be ruled out -- previous troponin elevation is likely due to supply-demand mismatch, given that her pre-test probability for mild CAD is high -- recommend repeating troponin; if stil l downtrending or negative, do not need to start heparin drip -- recommend continuing medical manageme nt with ASA, statin, beta kamron and ACEi -- if cardiac enzymes remain negative or downtrending, can consider outpatient ischemic workup with stress test -- if enzymes become positive, patient d evelops chest pain or becomes hemodynamically unstable with suspicion for a cardiac etiology, we will consider performing emergent ischemic evaluation Patient will be followed by Cardiology Consult Team. Plan briefly discussed with Dr. Boyd. Juanita Rivero MD Property Utilization Officer, PGY4 Plan of Care No Data Provided for This Section Social History Social History Date Source Social History TypeResponse 06/08/2016 [facility] Alcohol Never Smoking Status Never smoker; Previous treatment: None; Ready to change: No; Concerns about tobacco use in household: No; Exposure to Tobacco Smoke None; Cigarette Smoking Last 365 Days No; Reg Smoking Cessation Counseling No Family History No Data Provided for This Section Advance Directives No Data Provided for This Section Functional Status No Data Provided for This Section
[2020-06-07] MEDS ORDERED: MIDAZOLAM HCL 2 MG/2 ML INJ ONE ×3 (10:33→10:49)
[2020-06-07] MEDS ORDERED: FLUMAZENIL 0.1 MG/ML (5 mL VIAL) IV ONE ×2 (10:33→10:50)
[2020-06-07] MEDS ORDERED: ATROPINE SULF 1 MG/10 ML SYR IV ONE (10:33)
[2020-06-07] MEDS ORDERED: METOPROLOL TARTRATE 5 MG/5 ML INJ IV ONE (10:33)
[2020-06-07 12:02] VITALS: TEMP 97.3
[2020-06-07 13:27] VITALS: BP 99/65; O2SAT 99
--- NOTE | 2020-06-11 23:16 | OP ---
Date of Procedure: 06/07/2020 Surgeon: Tramaine Alcaraz MD Procedure: Direct current cardioversion. Indication: Atrial fibrillation, symptomatic, recurrent on Eliquis and sotalol 120 b.i.d. She also has a history of hypothyroidism and gastroesophageal reflux disease. Procedure In Detail: She was brought to the labor union business representative as an outpatient. Received a total of 6 mg of Versed IV for total sedation. This was reversed with flumazenil with 0.1 mg. She received 1 shock o f 100 joules and she is converted to sinus rhythm. She will go home after she wakes up on the sotalo l 120 b.i.d. and Eliquis. If she has any recurrent atrial fibrillation, we will consider for an abla tion in the near future. LINUS/GOSIA Voice ID: [id number] Report ID: [id number]
== END 2020-06-07 12:30 | disposition home or self-care (01) ==
LOC: CCL 09:20
DX: I48.0 Paroxysmal atrial fibrillation (principal); E03.9 Hypothyroidism, unspecified; K21.9 Gastro-esophageal reflux disease without esophagitis; Z79.01 Long term (current) use of anticoagulants; Z20.822 Contact with and (suspected) exposure to COVID-19; I11.0 Hypertensive heart disease with heart failure; I50.32 Chronic diastolic (congestive) heart failure; I27.20 Pulmonary hypertension, unspecified; E66.9 Obesity, unspecified; Z68.30 Body mass index [BMI] 30.0-30.9, adult
CPT/HCPCS: 93005; 85025; 80048; 36415; 85610; 85730; 92960; U0002; J2250 ×2; J7040 ×2

== ENCOUNTER 2021-07-17 10:55 | Inpatient (IN) | payer OTHER ==
[2021-07-17 12:06] LABS: Absolute Lymphocytes (CBC) 1.7 K/uL (0.7-4.9); Hematocrit 50.5 % (36.0-45.0); Lymphocytes % 16.7 % (15.3-44.8); MPV 8.1 fL (7.6-11.3); RBC Red Blood Cell Count 5.22 M/uL (3.86-4.86)
[2021-07-17 12:15] LABS: Protime INR 1.41
[2021-07-17 12:29] LABS: Albumin 2.5 g/dL (3.4-5.0); Bilirubin Direct 0.5 mg/dL (0-0.2); Bilirubin Total 1.3 mg/dL (0.2-1.0); Magnesium 1.9 mg/dL (1.8-2.4); Potassium 3.1 mmol/L (3.5-5.1); Protein, Total 6.8 g/dL (6.4-8.2); Troponin High Sensitivity 8.2 pg/mL (<58.9)
--- NOTE | 2021-07-17 12:43 | RAD REPORT ---
EXAM DESCRIPTION: Subha Single View07/17/2021 12:38 pm CLINICAL HISTORY: Chest pain COMPARISON: 2019 FINDINGS: Chronic elevation right hemidiaphragm Small right pleural effusion The lungs appear clear of acute infiltrate. The heart is mildly to moderately enlarged
--- NOTE | 2021-07-17 13:02 | RAD REPORT ---
EXAM DESCRIPTION: USExtrem Venous W Compress Bil07/17/2021 12:55 pm CLINICAL HISTORY: Leg swelling COMPARISON: none FINDINGS: The common femoral, superficial femoral, popliteal and posterior tibial veins bilaterally are compressible and demonstrate augmentation. Doppler demonstrates good flow. IMPRESSION: No evidence of deep venous thrombosis involving either lower extremity.
[2021-07-17] MEDS ORDERED: KCL 20 MEQ/100 mL IVPB 100 ML IV ONE (13:23)
[2021-07-17] MEDS ORDERED: NA CHLORIDE 0.9% 100 ML IV ONE (13:23)
--- NOTE | 2021-07-17 14:31 | ER ---
Nurse's Notes [facility] Name: Laya Kim Age: 86 yrs Sex: Female : 1935 Arrival Date: 07/17/2021 Time: 10:58 Bed 6 Private MD: Diagnosis: Hypokalemia;Acute on chronic combined systolic (congestive) and diastolic (congestive) heart failure Presentation: 07/17 11:28 Chief complaint: Patient states: she was visiting her PCP today, when she was sent ap3 right over here for evaluation due to RUBY lower extremity swelling. It is reported the patient has a hx of congestive heart failure, but the daughter states "she has been rapidly declining in the last few weeks.". Coronavirus screen: At this time, the client does not indicate any symptoms associated with coronavirus-19. Ebola Screen: No symptoms or risks identified at this time. No acute neurological deficit is noted. Initial Sepsis Screen: Does the patient meet any 2 criteria? Systolic BP < 90 mmHg. HR > 90 bpm. Yes Does the patient have a suspected source of infection? No. Patient's initial sepsis screen is negative. Risk Assessment: Do you want to hurt yourself or someone else? Patient reports no desire to harm self or others. Onset of symptoms was March 2022. 11:28 Method Of Arrival: Wheelchair ap3 17:10 Acuity: NATAN 3 ab2 Triage Assessment: 11:36 General: Appears comfortable, Behavior is calm, cooperative. Pain: Complains of pain in ap3 back Quality of pain is described as aching, Pain began chronic back pain. Neuro: Reports weakness. Cardiovascular: Patient's skin is warm and dry. Respiratory: Airway is patent. Musculoskeletal: Swelling present in right foot, left foot, right leg and left leg. Historical: - Allergies: 11:33 antibiotic medication; ap3 11:33 Snake serum; ap3 - Home Meds: 11:33 Eliquis 5 mg oral tab [Active]; Betapace 120 mg oral tab [Active]; pantoprazole 40 mg ap3 oral grps [Active]; levothyroxine 125 mcg tab [Active]; tramadol 50 mg Oral TbDi [Active]; Lasix 40 mg Oral tab [Active]; Sotalol Oral [Active]; - PMHx: 11:33 Atrial Fib; CHF; Hypertension; Hypothyroidism; Myocardial infarction; pleural effusions ap3 requiring draining; - Immunization history:: Client reports receiving the 2nd dose of the Covid vaccine, Pneumococcal vaccine is not up to date, Flu vaccine is not up to date. - Social history:: Smoking status: Patient denies any tobacco usage or history of. Screenin:38 Abuse screen: Denies threats or abuse. Nutritional screening: No deficits noted. ap3 Tuberculosis screening: No symptoms or risk factors identified. 17:34 Fall Risk Fall in past 12 months (25 points). jg9 Assessment: 11:55 General: Appears in no apparent distress. comfortable, Behavior is calm, cooperative, ab2 appropriate for age. Pain: Complains of pain in right foot, left foot, right leg and left leg Pain currently is 4 out of 10 on a pain scale. Neuro: Level of Consciousness is awake, alert, obeys commands, Oriented to person, place, time, situation, Appropriate for age Rn New Grad are equal bilaterally Moves all extremities. Gait is steady, Reports weakness. Cardiovascular: Denies chest pain, shortness of breath, Heart tones S1 S2 present Patient's skin is warm and dry. Respiratory: No deficits noted. Airway is patent Respiratory effort is even, unlabored, Respiratory pattern is regular, symmetrical, Breath sounds are diminished bilaterally. GI: No deficits noted. No signs and/or symptoms were reported involving the gastrointestinal system. Abdomen is round non-distended, Bowel sounds present X 4 quads. : No deficits noted. No signs and/or symptoms were reported regarding the genitourinary system. EENT: No deficits noted. No signs and/or symptoms were reported regarding the EENT system. Derm: Skin is fragile, is thin, Skin is dry, Skin is pink, warm \\T\\ dry. Musculoskeletal: Range of motion: intact in all extremities, Swelling present in right foot, left foot, right leg and left leg. 16:55 Reassessment: Attempted to call report, extension provided for nurse to call me back. jg9 Vital Signs: 11:28 BP 87 / 63; Pulse 114; Resp 18; Temp 98.0; Weight 73.48 kg; Height 5 ft. 5 in. (165.10 ap3 cm); 11:55 BP 111 / 82; Pulse 105; Resp 18; Pulse Ox 98% on R/A; ab2 12:30 BP 95 / 70; Pulse 101; Resp 18; Pulse Ox 97% on R/A; ab2 13:25 BP 99 / 73; Pulse 118; Resp 18; Pulse Ox 97% on R/A; ab2 14:00 BP 104 / 75; Pulse 92; Resp 20 S; Pulse Ox 96% on R/A; jg9 14:30 BP 99 / 65; Pulse 96; Resp 16 S; Pulse Ox 96% ; jg9 14:45 BP 111 / 85; Pulse 109; Resp 16 S; Pulse Ox 96% ; jg9 15:45 BP 108 / 81; Pulse 117; Resp 17 S; Pulse Ox 98% on R/A; jg9 16:45 BP 106 / 73; Pulse 112; Resp 17 S; Pulse Ox 97% on R/A; jg9 11:28 Body Mass Index 26.96 (73.48 kg, 165.10 cm) ap3 ED Course: 10:58 Patient arrived in ED. as 11:33 Triage completed. ap3 11:37 Arm band placed on right wrist. ap3 11:42 Abe Horton PA is PHCP. cp 11:42 Manolo Multani MD is Attending Physician. cp 11:54 Linda Chavez, RN is Primary Nurse. jg9 11:57 Patient has correct armband on for positive identification. Bed in low position. Call ab2 light in reach. Side rails up X2. Adult w/ patient. 11:57 No provider procedures requiring assistance completed. Inserted saline lock: 20 gauge ab2 in right antecubital area, using aseptic technique. Blood collected. 11:58 Primary Nurse role handed off by Linda Chavez, RN ab2 11:58 Aldo Lowery is Primary Nurse. ab2 11:58 PT-INR Sent. ab2 11:58 Basic Metabolic Panel Sent. ab2 11:58 CBC with Diff Sent. ab2 11:58 LFT's Sent. ab2 11:59 Magnesium Sent. ab2 11:59 NT PRO-BNP Sent. ab2 11:59 Troponin HS Sent. ab2 12:38 XRAY Chest (1 view) In Process Unspecified. EDMS 12:55 US Extremity Venous W Compression Ruby In Process Unspecified. EDMS 13:26 SARS-COV-2 RT PCR Sent. ab2 13:26 COVID-19 SARS RT PCR (Document "Date of Onset" if Symptomatic) Sent. ab2 14:07 Warm blanket given. jg9 14:09 No apparent distress. Resting quietly. Awaiting lab results, Awaiting radiology jg9 results. Pt visited by daughter. 14:29 LoreFly young is Hospitalizing Provider. cp 16:59 No apparent distress. Resting quietly. Awaiting bed assignment. jg9 17:34 Patient admitted, IV remains in place. jg9 Administered Medications: 13:29 Drug: Potassium Chloride 20 mEq Route: IV; Rate: calculated rate; Site: right jg9 antecubital; 14:41 Drug: HYDROcodone-acetaminophen 5 mg-325 mg 1 tabs Route: PO; ab2 16:59 Follow up: Response: No adverse reaction; Pain is decreased jg9 Outcome: 14:30 Decision to Hospitalize by Provider. cp 17:33 Admitted to Med/surg accompanied by tech, via wheelchair, Report called to YOLI Chaudhary jg9 17:33 Condition: stable 17:41 Patient left the ED. jg9 Signatures: Dispatcher [employer] EDMS Nathalie Jimenez Corey, BROOKLYN BARAHONA cp Meg Villanueva RN RN ap3 Linda Chavez RN RN jg9 Aldo Lowery ab2 Corrections: (The following items were deleted from the chart) 17:10 11:28 Acuity: NATAN 2 ap3 ab2
--- NOTE | 2021-07-17 14:31 | EDPHYS ---
Physician Documentation [facility] Name: Laya Kim Age: 86 yrs Sex: Female : 1935 Arrival Date: 07/17/2021 Time: 10:58 Bed 6 Private MD: ED Physician Manolo Multani HPI: 07/17 12:00 This 86 yrs old Female presents to ER via Wheelchair with complaints of Feet Swelling, cp Leg Swelling, Abnormal Lab Results, Weakness. 12:00 The patient presents with swelling. The complaints affect the right leg and left leg. cp Context: Daughter reports patient with history of CHF. 12:00 Onset: The symptoms/episode began/occurred gradually. Associated signs and symptoms: cp Pertinent positives: weakness, shortness of breath, Pertinent negatives fever, warmth. Treatment prior to arrival includes: no previous treatment. Historical: - Allergies: 11:33 antibiotic medication; ap3 11:33 Snake serum; ap3 - Home Meds: 11:33 Eliquis 5 mg oral tab [Active]; Betapace 120 mg oral tab [Active]; pantoprazole 40 mg ap3 oral grps [Active]; levothyroxine 125 mcg tab [Active]; tramadol 50 mg Oral TbDi [Active]; Lasix 40 mg Oral tab [Active]; Sotalol Oral [Active]; - PMHx: 11:33 Atrial Fib; CHF; Hypertension; Hypothyroidism; Myocardial infarction; pleural effusions ap3 requiring draining; - Immunization history:: Client reports receiving the 2nd dose of the Covid vaccine, Pneumococcal vaccine is not up to date, Flu vaccine is not up to date. - Social history:: Smoking status: Patient denies any tobacco usage or history of. ROS: 12:05 Constitutional: Negative for body aches, chills, fever. cp 12:05 Eyes: Negative for injury, pain, redness, and discharge. cp 12:05 Cardiovascular: Positive for edema, Negative for chest pain. 12:05 Respiratory: Positive for shortness of breath, Negative for cough, wheezing. 12:05 Abdomen/GI: Negative for abdominal pain, vomiting, diarrhea, constipation. cp 12:05 ENT: Negative for drainage from ear(s), ear pain, sore throat, difficulty swallowing, cp difficulty handling secretions. 12:05 Skin: Negative for rash. 12:05 Neuro: Positive for weakness, Negative for altered mental status, dizziness, headache. 12:05 All other systems are negative. Exam: 12:08 ECG was reviewed by the Attending Physician. cp 12:10 Constitutional: The patient appears in no acute distress, alert, awake, cp non-diaphoretic, non-toxic, well developed, well nourished. 12:10 Head/Face: Normocephalic, atraumatic. cp 12:10 Eyes: Periorbital structures: appear normal, Conjunctiva: normal, no exudate, no injection, Sclera: no appreciated abnormality, Lids and lashes: appear normal, bilaterally. 12:10 ENT: External ear(s): are unremarkable, Nose: is normal, Mouth: Lips: moist, Oral mucosa: moist, Posterior pharynx: Airway: no evidence of obstruction, patent. 12:10 Neck: ROM/movement: is normal, is supple, without pain, no range of motions limitations. 12:10 Chest/axilla: Inspection: normal. 12:10 Cardiovascular: Rate: tachycardic, Rhythm: irregular, Edema: pedal edema, that is moderate, ankle edema, that is moderate, JVD: is not appreciated. 12:10 Respiratory: the patient does not display signs of respiratory distress, Respirations: labored breathing, is not present, shallow respirations, that is mild, Breath sounds: bronchial sounds, that are mild, are heard diffusely, decreased breath sounds, that are mild, throughout, stridor, is not appreciated, wheezing: is not appreciated. 12:10 Abdomen/GI: Inspection: abdomen appears normal, Palpation: abdomen is soft and non-tender, in all quadrants. 12:10 Back: pain, is absent, ROM is normal. 12:10 Neuro: Orientation: to person, place \\T\\ time. Mentation: is normal, Motor: moves all fours, general weakness with no focal deficits, Sensation: is normal. Vital Signs: 11:28 BP 87 / 63; Pulse 114; Resp 18; Temp 98.0; Weight 73.48 kg; Height 5 ft. 5 in. (165.10 ap3 cm); 11:55 BP 111 / 82; Pulse 105; Resp 18; Pulse Ox 98% on R/A; ab2 12:30 BP 95 / 70; Pulse 101; Resp 18; Pulse Ox 97% on R/A; ab2 13:25 BP 99 / 73; Pulse 118; Resp 18; Pulse Ox 97% on R/A; ab2 14:00 BP 104 / 75; Pulse 92; Resp 20 S; Pulse Ox 96% on R/A; jg9 14:30 BP 99 / 65; Pulse 96; Resp 16 S; Pulse Ox 96% ; jg9 14:45 BP 111 / 85; Pulse 109; Resp 16 S; Pulse Ox 96% ; jg9 15:45 BP 108 / 81; Pulse 117; Resp 17 S; Pulse Ox 98% on R/A; jg9 16:45 BP 106 / 73; Pulse 112; Resp 17 S; Pulse Ox 97% on R/A; jg9 11:28 Body Mass Index 26.96 (73.48 kg, 165.10 cm) ap3 MDM: 11:49 Patient medically screened. 13:30 Data reviewed: vital signs, nurses notes, lab test result(s), EKG, radiologic studies, cp plain films, ultrasound. 13:30 Test interpretation: by ED physician or midlevel provider: ECG, plain radiologic cp studies. 07/17 11:56 Order name: Basic Metabolic Panel; Complete Time: 13:16 07/17 13:16 Interpretation: Normal except: NA 134; K 3.1; CL 93; CO2 34; GLUC 123; GFR 42; CA 8.4. 07/17 11:56 Order name: CBC with Diff; Complete Time: 12:08 07/17 12:08 Interpretation: Normal except: RBC 5.22; HGB 17.0; HCT 50.5; ROSALIA% 78.5; NEUT A 8.1. 07/17 11:56 Order name: LFT's; Complete Time: 13:16 07/17 13:17 Interpretation: Normal except: AST 51; BILIT 1.3; BILID 0.5; ALB 2.5; GLOB 4.3; A/G 0.6. 07/17 11:56 Order name: Magnesium; Complete Time: 13:16 07/17 11:56 Order name: NT PRO-BNP; Complete Time: 13:16 cp 07/17 13:17 Interpretation: Abnormal: NT PRO-BNP 2822. 07/17 11:56 Order name: PT-INR; Complete Time: 13:16 07/17 11:56 Order name: Troponin HS; Complete Time: 13:16 cp 07/17 11:56 Order name: XRAY Chest (1 view); Complete Time: 13:16 07/17 11:56 Order name: Urine Microscopic Only 07/17 12:08 Order name: US Extremity Venous W Compression Luis; Complete Time: 13:16 cp 07/17 13:19 Order name: COVID-19 SARS RT PCR (Document "Date of Onset" if Symptomatic) 07/17 13:20 Order name: SARS-COV-2 RT PCR EDMO 07/17 11:56 Order name: EKG; Complete Time: 11:57 cp 07/17 11:56 Order name: Cardiac monitoring; Complete Time: 11:58 07/17 11:56 Order name: EKG - Nurse/Tech; Complete Time: 12:08 07/17 11:56 Order name: IV Saline Lock; Complete Time: 11:58 cp 07/17 11:56 Order name: Labs collected and sent; Complete Time: 11:58 cp 07/17 11:56 Order name: O2 Per Protocol; Complete Time: 11:58 cp 07/17 11:56 Order name: O2 Sat Monitoring; Complete Time: 11:58 cp EC:08 Rate is 106 beats/min. Rhythm is irregular. QRS interval is normal. QT interval is cp normal. Interpreted by me. Reviewed by me. Administered Medications: 13:29 Drug: Potassium Chloride 20 mEq Route: IV; Rate: calculated rate; Site: right jg9 antecubital; 14:41 Drug: HYDROcodone-acetaminophen 5 mg-325 mg 1 tabs Route: PO; ab2 16:59 Follow up: Response: No adverse reaction; Pain is decreased jg9 Disposition: 19:38 Co-signature as Attending Physician, Manolo Multani MD I agree with the assessment and kdr plan of care. Disposition Summary: 07/17/21 14:30 Hospitalization Ordered Hospitalization Status: Inpatient Admission cp Provider: Fly Wade cp Location: Telemetry/MedSurg (Inpatient) cp Condition: Fair cp Problem: new cp Symptoms: are unchanged cp Bed/Room Type: Standard cp Room Assignment: 217(07/17/21 16:39) bd Diagnosis - Hypokalemia cp - Acute on chronic combined systolic (congestive) and diastolic (congestive) heart cp failure Forms: - Medication Reconciliation Form cp - SBAR form cp Signatures: Dispatcher [employer] EDAlla Law Kevin, MD MD kdr Page, Corey, PA PA cp Meg Villanueva RN RN ap3 Linda Chavez RN RN jg9 Aldo Lowery2 Corrections: (The following items were deleted from the chart) 13:17 13:16 Normal except: NA 134; K 3.1; CL 93; CO2 34; GLUC 123; GFR 42. cp cp 16:39 14:30 cp bd 07/18 15:59 03 12:05 Respiratory: Negative for cough, shortness of breath, wheezing, cp cp
[2021-07-17] MEDS ORDERED: HYDROCODONE/APAP 5/325 MG TAB ONE (14:42)
--- NOTE | 2021-07-17 16:07 | P.HP ---
Certification for Inpatient Patient admitted to: Observation With expected LOS: <2 Midnights Practitioner: I am a practitioner with admitting privileges, knowledge of patient current condition, hospital course, and medical plan of care. Services: Services provided to patient in accordance with Admission requirements found in Title 42 Section 412.3 of the Code of Federal Regulations Patient History Date of Service: 07/17/21 Reason for admission: Abnormal labs History of Present Illness: 86-year-old man with a history of chronic atrial fibrillation, diabetes mellitus type 2 and hypothyroidism was referred to the emergency department due to hyperkalemia, elevated creatinine and increased lower extremity edema. Patient reports poor oral intake and generalized weakness. Family stated patient was not able to get up from the commode after using it, due to increased weakness. Patient report heartburn, intermittent nausea. She also stated she has been eating less due to the symptoms as well as shortness of breath and palpitation. She denied any fever, she denied any dysuria. Blood work done in the emergency department demonstrated hypokalemia, serum creatinine elevated above baseline. Chest x-ray demonstrated small right pleural effusion, no acute infiltrate. BNP elevated, initial troponin negative. Patient is hospitalized for further management. Allergies antibiotic medication Allergy (Uncoded 05/01/20 00:32) Itching/Hives/Rash Snake serum Allergy (Uncoded 06/07/16 20:44) Unknown Home Medications: Levothyroxine [Synthroid*] 125 mcg PO [id number] 04/19/17 Tramadol HCl [Ultram] 50 mg PO Q6HP PRN 04/19/17 Pantoprazole [Protonix Tab*] 40 mg PO DAILYAC #60 tab 04/21/17 Apixaban [Eliquis] 5 mg PO BID #60 tablet 05/05/20 Sotalol HCl [Sotalol] 120 mg PO BID #60 tablet 05/05/20 - Past Medical/Surgical History Diabetic: Yes -: Diabetes mellitus type 2 -: Hypertension -: Atrial fibrillation -: Chronic anti coagulation -: Hypothyroidism Psychosocial/ Personal History: She is a . She lives with a disabled son. - Family History Father -: Heart disease Mother -: Cancer - Social History Alcohol use: No CD- Drugs: No Caffeine use: Yes Review of Systems Other: Patient denies any diarrhea, denies any nausea or vomiting. She denies any chest pain.. Except as documented, all other systems reviewed and negative. Physical Examination - Physical Exam General: Alert, In no apparent distress, Oriented x3 HEENT: PERRLA, Mucous membr. moist/pink, Sclerae nonicteric Neck: Supple, JVD not distended Respiratory: Clear to auscultation bilaterally, Normal air movement Cardiovascular: Normal S1 S2, No murmurs, Edema (3+ bilateral lower extremity edema), Irregular heart rate/rhythm Capillary refill: <2 Seconds Gastrointestinal: Normal bowel sounds, Soft and benign, Non-distended Musculoskeletal: Swelling (Bilateral leg) Integumentary: No rashes Neurological: Normal strength at 5/5 x4 extr, Cranial nerves 3-12 intact Lymphatics: No axilla or inguinal lymphadenopathy - Studies Laboratory Data (last 24 hrs) 07/17/21 12:00: PT 15.6 H, INR 1.41 07/17/21 12:00: WBC 10.30, Hgb 17.0 H, Hct 50.5 H, Plt Count 227 07/17/21 12:00: Sodium 134 L, Potassium 3.1 L, BUN 18, Creatinine 1.22, Glucose 123 H, Magnesium 1.9, Total Bilirubin 1.3 H, AST 51 H, ALT 25, Alkaline Phosphatase 70 Assessment and Plan - Problems (Diagnosis) (1) Anasarca Current Visit: Yes Status: Acute (2) Moderate protein-calorie malnutrition Current Visit: Yes Status: Acute (3) Pleural effusion Current Visit: Yes Status: Acute (4) GERD (gastroesophageal reflux disease) Current Visit: Yes Status: Acute (5) Generalized weakness Current Visit: Yes Status: Acute (6) Dysphagia Current Visit: Yes Status: Acute (7) Atrial fibrillation with RVR Current Visit: No Status: Acute - Plan Admit patient. Replete potassium Continue home dose sotalol Consult GI for dysphagia and GERD. Speech therapy for swallow evaluation. Nephrology consulted to assist with management. IV Lasix and albumin infusion for edema and pleural effusion. Monitor renal function on IV Lasix. Check TSH Resume home dose Synthroid for now. PT consult - Advance Directives Does patient have a Living Will: No Does patient have a Durable POA for Healthcare: Yes
[2021-07-17] MEDS ORDERED: ONDANSETRON 4 MG/2 ML VIAL IV PRN (18:25)
[2021-07-17] MEDS ORDERED: ACETAMINOPHEN 500 MG TAB PO PRN (18:25)
[2021-07-17] MEDS: INSULIN -REGULAR HUMAN 50 UNIT/0.5 ML ML SQ SCH ×2 (18:45→21:00)
[2021-07-17 20:18] VITALS: BMI 26.9
[2021-07-17] MEDS: ALBUMIN HUMAN 25% 100 ML IV SCH (20:41)
[2021-07-17] MEDS: APIXABAN 5 MG TABLET PO SCH (20:41)
[2021-07-17] MEDS: FUROSEMIDE 40 MG/4 ML VIAL IV SCH (20:42)
[2021-07-17] MEDS ORDERED: SOTALOL HCL 80 MG TAB PO SCH (21:00)
[2021-07-17] MEDS ORDERED: SOTALOL HCL 120 MG PO SCH (21:00)
[2021-07-17 22:02] LABS: Urine Appearance CLEAR (Clear); Urine Bilirubin NEGATIVE (Negative); Urine Blood NEGATIVE (Negative); Urine Color YELLOW (Yellow); Urine Glucose NEGATIVE (Negative); Urine Protein NEGATIVE (Negative); Urine Urobilinogen 0.2 mg/dL (0.2-1.0); Urine pH 6.5 (5.0-7.0)
[2021-07-17 22:03] LABS: Urine Microscopic Reflex NO UMIC
[2021-07-18] MEDS: TRAMADOL HCL 50 MG TAB PO PRN ×2 (04:58→18:10)
[2021-07-18] MEDS: LEVOTHYROXINE SOD 0.125 MG TAB PO SCH (05:00)
[2021-07-18 05:47] LABS: Absolute Lymphocytes (CBC) 2.2 K/uL (0.7-4.9); Hematocrit 45.7 % (36.0-45.0); Lymphocytes % 21.5 % (15.3-44.8); MPV 8.2 fL (7.6-11.3); RBC Red Blood Cell Count 4.73 M/uL (3.86-4.86)
[2021-07-18 06:09] LABS: Albumin 2.7 g/dL (3.4-5.0); Bilirubin Total 1.4 mg/dL (0.2-1.0); Magnesium 1.9 mg/dL (1.8-2.4); Protein, Total 6.3 g/dL (6.4-8.2)
[2021-07-18 06:10] LABS: Thyroid Stimulating Hormone 33.6 uIU/mL (0.360-3.740)
[2021-07-18] MEDS ORDERED: POTASSIUM CL SA 10 MEQ TAB PO ONE (07:15)
[2021-07-18] MEDS: INSULIN -REGULAR HUMAN 50 UNIT/0.5 ML ML SQ SCH ×4 (07:30→21:00)
[2021-07-18] MEDS ORDERED: PNEUMOCOCCAL VACCINE 0.5 ML IMVAC ONE (08:00)
[2021-07-18] MEDS ORDERED: INFLUENZA VACCINE (for 6+ mo) 0.5 ML DOSE IMVAC ONE (08:00)
[2021-07-18] MEDS ORDERED: POTASSIUM 25 MEQ EFFERV TAB PO ONE (09:00)
[2021-07-18] MEDS: APIXABAN 5 MG TABLET PO SCH ×2 (10:12→21:31)
[2021-07-18] MEDS: FUROSEMIDE 40 MG/4 ML VIAL IV SCH ×2 (10:13→18:03)
[2021-07-18] MEDS: PANTOPRAZOLE 40MG TABLET PO SCH (10:13)
[2021-07-18] MEDS ORDERED: SOTALOL HCL 160 MG PO SCH (10:35)
[2021-07-18] MEDS: SOTALOL HCL 80 MG TAB PO SCH ×2 (10:49→18:00)
[2021-07-18] MEDS: ALBUMIN HUMAN 25% 100 ML IV SCH ×2 (10:49→21:52)
[2021-07-18] MEDS: KCL 20 MEQ/100 mL IVPB 20 MEQ/100 ML BAG IV SCH ×3 (10:50→22:34)
[2021-07-18] MEDS ORDERED: NA CHLORIDE 0.9% 250 ML ONE (11:45)
--- NOTE | 2021-07-18 12:15 | P.PN ---
Subjective Date of Service: 07/18/21 Chief Complaint: Abnormal labs Subjective: Worsening (Went into rapid afib.) Physical Examination - Vital Signs Temperature: 97.5 F Blood Pressure: 109/66 Pulse: 125 Respirations: 18 Pulse Ox (%): 96 - Physical Exam General: In no apparent distress, Cooperative HEENT: Atraumatic, Normocephalic Respiratory: Normal air movement Cardiovascular: Regular rate/rhythm, Other (tachycardic), Edema (Bilateral lower extremity), Irregular heart rate/rhythm Musculoskeletal: Swelling Neurological: Normal speech, Normal affect - Studies Laboratory Data (last 24 hrs) 07/17/21 12:00: PT 15.6 H, INR 1.41 07/17/21 12:00: Sodium 134 L, Potassium 3.1 L, BUN 18, Creatinine 1.22, Glucose 123 H, Magnesium 1.9, Total Bilirubin 1.3 H, AST 51 H, ALT 25, Alkaline Phosphatase 70 Assessment And Plan - Current Problems (Diagnosis) (1) Anasarca Current Visit: Yes Status: Acute (2) Dysphagia Current Visit: Yes Status: Acute (3) GERD (gastroesophageal reflux disease) Current Visit: Yes Status: Acute (4) Moderate protein-calorie malnutrition Current Visit: Yes Status: Acute (5) Pleural effusion Current Visit: Yes Status: Acute (6) Atrial fibrillation with RVR Current Visit: No Status: Acute (7) Debility Current Visit: No Status: Acute (8) Chronic anticoagulation Current Visit: No Status: Chronic (9) Chronic renal disease Current Visit: No Status: Chronic Qualifiers: Chronic kidney disease stage: stage 3 (moderate) (10) Diabetes mellitus Current Visit: No Status: Chronic Qualifiers: Diabetes mellitus type: type 2 Diabetes mellitus superintendent container terminal insulin use: without superintendent container terminal use Diabetes mellitus complication status: with other speci fied complication Qualified Code(s): E11.69 - Type 2 diabetes mellitus with other specified complication (11) Hypertension Current Visit: No Status: Chronic Qualifiers: Hypertension type: essential hypertension (12) Hypothyroidism Current Visit: No Status: Chronic Qualifiers: Hypothyroidism type: unspecified Qualified Code(s): E03.9 - Hypothyroidism, unspecified Physician Review Additional Text: 07/18/21 12:13 Assessment Patient is a 86 year old female brought in for evaluation of abnormal outpatient labs. Reportedly hyperkalemic, edematous and in renal failure. Patient is improving with diuresis and albumin. Lower extremity Doppler negative for DVTs. Nephrology on board. GI consulted as well for evaluation of dysphagia MIKE Hyperkalemia-resolved Hypokalemia Rapid afib - as per EKG Dysphagia PLAN: Resume home dose of Sotalol for rapid afib Continue telemetry monitoring ASSISTANT CLINICAL NURSE MANAGER/GI consulted for dysphagia Continue lasix/albumin infusion Monitor I/O Replace Potassium Discharge pending Nephrology/GI clearance DVT ppx with apixaban Change to inpatient status
--- NOTE | 2021-07-18 15:16 | RAD REPORT ---
EXAM DESCRIPTION: RAD - Barium Swallow Modified - 07/18/2021 3:03 pm CLINICAL HISTORY: dysphasia COMPARISON: Renal Ultrasound-Complete dated 04/19/2017 TECHNIQUE: The patient was given liquid, semi-solid and solid forms of barium. Lateral view fluorosc opic imaging was performed in conjunction with speech pathology service. FINDINGS: LARYNGEAL PENETRATION: NOT CLEARED WITH THIN PHARYNGEAL RESIDUE: VALLECULAR- MILD WITH THIN, TRACE WITH NECTAR, SEVERE WITH PUREE AND DRY SOLID. PYRIFORM MILD WITH THIN, TRACE WITH NECTAR, SEVERE WITH PUREE OSTEOPHYTE BETWEEN C5-C6, MINIMAL UES OPENING, THIN POSTERIOR PHARYNGEAL WALL, PROMINENT SPINAL CURVA TURE FROM C5-C8, ABSENT EPIGLOTTIC DEFLECTION, MILD ESOPHAGEAL RESIDUE THROUGHOUT AND SMALL POCKET CO NTAINING RESIDUE PROTRUDING FROM ESOPHAGUS SUPERIOR TO STOMACH Total fluoroscopy time: 3 minutes and 10 seconds
[2021-07-18] MEDS ORDERED: FUROSEMIDE 40 MG TABLET PO SCH (21:00)
[2021-07-18] MEDS: HYDROCODONE/APAP 10/325 TAB PO SCH (21:30)
[2021-07-18] MEDS ORDERED: SOTALOL HCL 80 MG TAB PO SCH (22:00)
[2021-07-19] MEDS: KCL 20 MEQ/100 mL IVPB 20 MEQ/100 ML BAG IV SCH ×4 (00:54→12:00)
[2021-07-19] MEDS: LEVOTHYROXINE SOD 0.125 MG TAB PO SCH (05:30)
[2021-07-19] MEDS ORDERED: DIGOXIN 0.25 MG/ML AMP IV ONE (06:56)
--- NOTE | 2021-07-19 07:25 | EKG ---
Test Date: 2021-07-18 Test Time: 09:46:03 Sueding Machine Operator: ANGELICA MEASUREMENT RESULTS: Intervals: Rate: 132 NH: QRSD: 72 QT: 272 QTc: 403 Parker: P: NH: QRS: 231 T: -39 INTERPRETIVE STATEMENTS: Suspect arm lead reversal, interpretation assumes no reversal Atrial fibrillation with rapid ventricular response Right superior axis deviation Low voltage QRS Cannot rule out Anteroseptal infarct, age undetermined Abnormal ECG Compared to ECG 07/17/2021 12:07:15 Right superior axis now present Low QRS voltage now present Atrial flutter no longer present Right-axis deviation no longer present Incomplete right bundle-branch block no longer present Myocardial infarct finding still present Electronically Signed On 07-19-21 07:22:12 CDT by Tramaine Alcaraz
--- NOTE | 2021-07-19 07:29 | EKG ---
Test Date: 2021-07-17 Test Time: 12:07:15 Shake Cutter: MEASUREMENT RESULTS: Intervals: Rate: 106 NE: QRSD: 100 QT: 294 QTc: 390 [place]: P: NE: QRS: 160 T: -27 INTERPRETIVE STATEMENTS: Atrial flutter with variable AV block Right axis deviation Incomplete right bundle branch block Possible Right ventricular hypertrophy Septal infarct, age undetermined Abnormal ECG Compared to ECG 06/07/2020 12:15:09 Right-axis deviation now present Incomplete right bundle-branch block now present Sinus rhythm no longer present Atrial premature complex(es) no longer present Myocardial infarct finding still present Electronically Signed On 07-19-21 07:23:05 CDT by Tramaine Alcaraz
[2021-07-19] MEDS: INSULIN -REGULAR HUMAN 50 UNIT/0.5 ML ML SQ SCH ×4 (07:30→21:00)
--- NOTE | 2021-07-19 07:46 | CON ---
Date of Consultation: 07/18/2021 Chief Complaint: Gpedy-jv-ihmiolj kidney injury, prerenal azotemia. History Of Present Illness: The patient came to the hospital because of generalized weakness. She h as history of atrial fibrillation, diabetes mellitus with renal manifestation, and hypothyroidism. S he was hyperkalemia, elevated creatinine and lower extremity edema. The patient reports t hat she has had poor p.o. intake, generalized weakness, generalized dizziness or syncope. Denies nec k pain or back pain. She also complained of heartburn, intermittent nausea and her appetite had decl ined. Chest x-ray done in the ER showed small right pleural effusion and no acute infiltrate. Past Medical History: Diabetes mellitus, hypertension, atrial fibrillation, hypothyroidism. Family History: Heart disease, cancer. Social History: Denies tobacco, alcohol, or illicit drugs. Review of Systems: General: The patient denies fever or chills. Eyes: Denies vision changes. Ears, Nose and Throat: Denies sore throat or earache. Respiratory: Denies PND or orthopnea. GI: The patient complains of diarrhea, nausea, and vomiting. : Denies dysuria or hematuria. All other systems are reviewed and all are negative. Physical Examination: General: The patient is awake, alert, and oriented. Eyes: Anicteric sclerae. EOMI. Ears, Nose, Mouth and Throat: Oral mucosa moist. No pallor. Neck: Supple. No bruits. Lungs: Diminished breath sounds at the bases, few rhonchi. Heart: S1, S2. No pericardial friction or rub. Abdomen: Soft, benign. Extremities: There is bilateral leg edema 1-2+. Laboratory Data: Sodium 134, potassium 3.1, BUN 18, creatinine 1.2, glucose 103, magnesium 1.9. PT . Impression And Plan: 1.Protein-calorie malnutrition and anasarca . The patient had history of pleural effusion . 2.The patient was found to have atrial fibrillation with rapid ventricular response. 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 3.Ruwxm-dy-txgoror kidney injury and anasarca. The patient is on IV Lasix and . 4.Hypokalemia. We will need to monitor and continue potassium chloride to replete potassium. 5.Acute kidney injury. We will need to check proteinuria to rule out nephrotic syndrome. Monitor u rine output to rule out urinary tract infection or acute urinary sediment . EB/MODL Voice ID: [id number] Report ID: [id number]
[2021-07-19 08:20] LABS: Magnesium 1.9 mg/dL (1.8-2.4); Potassium 3.3 mmol/L (3.5-5.1)
--- NOTE | 2021-07-19 08:20 | RAD REPORT ---
EXAM DESCRIPTION: US - Renal Ultrasound-Complete - 07/19/2021 12:22 am CLINICAL HISTORY: ckd Flank pain COMPARISON: Renal Ultrasound-Complete dated 04/19/2017 FINDINGS: Both kidneys are normal in size, shape and echotexture. The right kidney measures 9.0 x 4.1 x 3.8 cm. No hydronephrosis, focal mass or perinephric fluid. The left kidney measures 8.3 x 4.8 x 3.2 cm. Small cyst may be present measuring 16 x 13 mm, however only partially imaged or evaluated due to bowel gas. No hydronephrosis, focal mass or perinephric flu id. The urinary bladder is incompletely distended without gross abnormality seen. IMPRESSION: Essentially unremarkable study.
[2021-07-19] MEDS: PANTOPRAZOLE 40MG TABLET PO SCH (08:24)
[2021-07-19] MEDS: MIDODRINE HCL 5 MG TABLET PO SCH ×3 (08:24→21:14)
[2021-07-19] MEDS: APIXABAN 5 MG TABLET PO SCH ×2 (08:24→21:14)
[2021-07-19] MEDS: HYDROCODONE/APAP 10/325 TAB PO SCH ×2 (08:25→21:00)
--- NOTE | 2021-07-19 09:30 | P.PN ---
Subjective Date of Service: 07/19/21 Chief Complaint: Abnormal labs Subjective: No new changes (MBBS suggests oropharyngeal dysphagia. Otherwise, hypotensive overnight) Physical Examination - Vital Signs Temperature: 97 F Blood Pressure: 83/53 Pulse: 105 Respirations: 19 Pulse Ox (%): 95 - Physical Exam General: Alert, Cooperative HEENT: Atraumatic, Normocephalic Neck: Supple Respiratory: Clear to auscultation bilaterally, Normal air movement Cardiovascular: Normal S1 S2, Edema, Irregular heart rate/rhythm Musculoskeletal: Swelling Neurological: Normal speech, Normal affect Assessment And Plan - Current Problems (Diagnosis) (1) Anasarca Current Visit: Yes Status: Acute (2) Dysphagia Current Visit: Yes Status: Acute (3) GERD (gastroesophageal reflux disease) Current Visit: Yes Status: Acute (4) Moderate protein-calorie malnutrition Current Visit: Yes Status: Acute (5) Pleural effusion Current Visit: Yes Status: Acute (6) Atrial fibrillation with RVR Current Visit: No Status: Acute (7) Debility Current Visit: No Status: Acute (8) Chronic anticoagulation Current Visit: No Status: Chronic (9) Chronic renal disease Current Visit: No Status: Chronic Qualifiers: Chronic kidney disease stage: stage 3 (moderate) (10) Diabetes mellitus Current Visit: No Status: Chronic Qualifiers: Diabetes mellitus type: type 2 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 Reportedly hyperkalemic, edematous and in renal failure. Patient is improving with diuresis and albumin. Lower extremity Doppler negative for DVTs. Nephrology on board. GI consulted as well for evaluation of dysphagia MIKE Bilateral Lower extremity edema Hyperkalemia-resolved Hypokalemia Rapid afib - as per EKG Dysphagia PLAN: Hold sotalolol due to low BP IV Digoxin if HR is elevated Will give a dose of IV albumin TTE with LVEF of 35% with global hypokinesis Will consult cardiology for uncontrolled afib Continue apixaban for CVA prevention OK for dysphagia mechanical soft diet NO need for PEG tube Will consult Nutrition for malnutrition Patient will stay an additional day for BP monitoring DC in 1-2 days if BP is stable PRIMITIVO wrap for both lower extremities
[2021-07-19] MEDS ORDERED: ALBUMIN HUM 5% 500 ML IV ONE (10:00)
[2021-07-19] MEDS ORDERED: NA CHLORIDE 0.9% 0 ML ONE (10:52)
[2021-07-19] MEDS ORDERED: POTASSIUM 25 MEQ EFFERV TAB PO ONE (12:41)
--- NOTE | 2021-07-19 13:23 | ECHO ---
HEIGHT: 5 ft 5 in WEIGHT: 162 lb 0 oz DATE OF STUDY: 07/19/[address]: Prince Steve Pace MD 2-DIMENSIONAL: YES M.MODE: YES DOPPLER: YES COLOR FLOW: YES TDS: NO PORTABLE: NO DEFINITY: NO BUBBLE STUDY: NO DIAGNOSIS: LOWER EXTREMITY EDEMA CARDIAC HISTORY: CATHERIZATION: NO SURGERY: NO PROSTHETIC VALVE: NO PACEMAKER: NO MEASUREMENTS (cm) DIASTOLIC (NORMALS) SYSTOLIC (NORMALS) IVSd 0.9 (0.6-1.2) LA Diam 3.7 (1.9-4.0) LVEF 35% LVIDd 4.3 (3.5-5.7) LVIDs 3.6 (2.0-3.5) %FS 16% LVPWd 1.0 (0.6-1.2) Ao Diam 2.7 (2.0-3.7) 2 DIMENSIONAL ASSESSMENT: RIGHT ATRIUM: NORMAL LEFT ATRIUM: NORMAL RIGHT VENTRICLE: NORMAL LEFT VENTRICLE: NORMAL TRICUSPID VALVE: NORMAL MITRAL VALVE: NORMAL PULMONIC VALVE: NORMAL AORTIC VALVE: NORMAL PERICARDIAL EFFUSION: NONE AORTIC ROOT: NORMAL LEFT VENTRICULAR WALL MOTION: MODERATE GLOBAL HYPOKINESIS. DOPPLER/COLOR FLOW: MILD TRICUSPID AND MITRAL REGURGITATION. NORMAL RIGHT VENTRICULAR SYSTOLIC PRESSURE. COMMENTS: MILD TRICUSPID AND MITRAL REGURGITATION. NORMAL RIGHT VENTRICULAR SYSTOLIC PRESSURE. MODERATE GLOBAL HYPOKINESIS. LEFT VENTRICULAR EJECTION FRACTION 35%. TECHNOLOGIST: Pavel LEA
[2021-07-19 14:42] LABS: Urine Appearance CLEAR (Clear); Urine Bilirubin NEGATIVE (Negative); Urine Blood NEGATIVE (Negative); Urine Color DK YELLOW (Yellow); Urine Glucose NEGATIVE (Negative); Urine Protein NEGATIVE (Negative); Urine Specific Gravity 1.015 (1.005-1.030); Urine pH 6.5 (5.0-7.0)
[2021-07-19 14:59] LABS: Urine Bacteria <20 /HPF (<20); Urine RBC <5 /HPF (NONE SEEN)
[2021-07-19] MEDS ORDERED: DIGOXIN 0.25 MG/ML AMP IV SCH (15:00)
[2021-07-19] MEDS: AMIODARONE HCL 200 MG TAB PO SCH ×2 (17:37→21:00)
[2021-07-19] MEDS: ENSURE ENLIVE 237 ML CAN PO SCH (21:00)
--- NOTE | 2021-07-20 04:32 | PN ---
Date of Progress Note: 07/19/2021 Chief Complaint: Acute on chronic kidney injury, prerenal azotemia. Patient came to the hospital because of generalized weakness. She has history of diabetes mellitus w ith renal manifestation, chronic kidney disease, hypothyroidism, atrial fibrillation. She was found to have hyperkalemia, elevated creatinine, and lower extremity edema. She reports poor p.o. intake, generalized weakness, dizziness, and presyncope. Chest x-ray done in the ER showed right pleural eff usion and no acute infiltrate. The patient has history of hypothyroidism, chronic atrial fibrillatio n. She was found to have borderline hyponatremia. Sodium level was 134, potassium 3.1. Review of Systems: Patient is feeling better. Denies complaints. Physical Examination: Lungs: Clear to auscultation bilaterally. Heart: S1, S2. Abdomen: Soft, benign. Extremities: Slight edema. Impression And Plan: 1.Anasarca. 2.Protein calorie malnutrition. 3.Patient has history of pleural effusion, atrial fibrillation. She was found to have atrial fibril lation and rapid ventricular response. She has echo to rule out systolic dysfunction. 4.Patient has acute on chronic kidney injury associated with fluid overload. Patient will continue IV Lasix. Continue to monitor renal panel and magnesium level. 5.Hypokalemia, potassium chloride was ordered for treatment of hypokalemia. 6.Acute kidney injury. Patient will need proteinuria workup to rule out nephrotic syndrome. Monito r urine output and check for an evidence of abnormal urinary sediment and screen for urinary tract infection. EB/MODL Voice ID: [id number] Report ID: [id number]
[2021-07-20 04:36] LABS: Potassium 3.7 mmol/L (3.5-5.1)
[2021-07-20] MEDS: LEVOTHYROXINE SOD 0.125 MG TAB PO SCH (05:45)
[2021-07-20] MEDS: INSULIN -REGULAR HUMAN 50 UNIT/0.5 ML ML SQ SCH ×4 (07:30→21:00)
[2021-07-20] MEDS ORDERED: METOPROLOL TARTRATE 5 MG/5 ML INJ IV STA (08:21)
[2021-07-20] MEDS: AMIODARONE HCL 200 MG TAB PO SCH (08:30)
[2021-07-20] MEDS: HYDROCODONE/APAP 10/325 TAB PO SCH ×2 (09:00→20:56)
[2021-07-20] MEDS ORDERED: POTASSIUM CL SA 10 MEQ TAB PO ONE (09:00)
[2021-07-20] MEDS: MIDODRINE HCL 5 MG TABLET PO SCH ×3 (09:35→20:57)
[2021-07-20] MEDS: PANTOPRAZOLE 40MG TABLET PO SCH (09:36)
[2021-07-20] MEDS: APIXABAN 5 MG TABLET PO SCH ×2 (09:36→20:57)
[2021-07-20] MEDS: ENSURE ENLIVE 237 ML CAN PO SCH ×2 (09:37→20:48)
[2021-07-20] MEDS ORDERED: POTASSIUM 25 MEQ EFFERV TAB PO ONE (10:43)
--- NOTE | 2021-07-20 15:33 | P.PN ---
Subjective Date of Service: 07/20/21 Chief Complaint: Abnormal labs Subjective: No new changes (Uncontrolled afib.) Physical Examination - Vital Signs Temperature: 97.6 F Blood Pressure: 120/63 Pulse: 94 Respirations: 18 Pulse Ox (%): 97 - Physical Exam General: In no apparent distress, Cooperative HEENT: Atraumatic, Normocephalic Respiratory: Normal air movement Cardiovascular: Normal S1 S2 Neurological: Normal speech, Normal affect Assessment And Plan - Current Problems (Diagnosis) (1) Anasarca Current Visit: Yes Status: Acute (2) Dysphagia Current Visit: Yes Status: Acute (3) GERD (gastroesophageal reflux disease) Current Visit: Yes Status: Acute (4) Moderate protein-calorie malnutrition Current Visit: Yes Status: Acute (5) Pleural effusion Current Visit: Yes Status: Acute (6) Atrial fibrillation with RVR Current Visit: No Status: Acute (7) Debility Current Visit: No Status: Acute (8) Chronic anticoagulation Current Visit: No Status: Chronic (9) Chronic renal disease Current Visit: No Status: Chronic Qualifiers: Chronic kidney disease stage: stage 3 (moderate) (10) Diabetes mellitus Current Visit: No Status: Chronic Qualifiers: Diabetes mellitus type: type 2 Diabetes mellitus usp insulin use: without usp use Diabetes mellitus complication status: with other specified complication Qualified Code(s): E11.69 - Type 2 diabetes mellitus with other specified complication (11) Hypertension Current Visit: No Status: Chronic Qualifiers: Hypertension type: essential hypertension (12) Hypothyroidism Current Visit: No Status: Chronic Qualifiers: Hypothyroidism type: unspecified Qualified Code(s): E03.9 - Hypothyroidism, unspecified Physician Review Additional Text: 07/18/21 12:13 Assessment Patient is a 86 year old female brought in for evaluation of abnormal outpatient labs. Reportedly hyperkalemic, edematous and in renal failure. Patient improved with diuresis and albumin. Lower extremity Doppler negative for DVTs. Her hospital course was complicated by rapid atrial fibrillation. MIKE Bilateral Lower extremity edema Hyperkalemia-resolved Rapid afib - as per EKG Dysphagia PLAN: Not safe for discharge Continues to be in rapid afib Will resume on Sotalol since BP can now tolerate TTE with LVEF of 35% with global hypokinesis Will consider Amio bolus if BP becomes an issue again Cardiology consulted Continue apixaban for CVA prevention OK for dysphagia mechanical soft diet Appreciate assistance from Nutrition for malnutrition
[2021-07-20] MEDS: SOTALOL HCL 80 MG TAB PO SCH (17:20)
--- NOTE | 2021-07-20 20:51 | CON ---
Date of Consultation: 07/20/2021 Reason For Consultation: Atrial fibrillation. History Of Present Illness: An 86-year-old female, history of AFib, used to be on sotalol, diabetes, hypothyroidism, presented to the emergency room due to dehydration, elevated creatinine. Blood pres sure was low. After proper hydration, she has improved, numbers have improved, and kidney function h as improved. Denies having any chest pain or palpitations. She went into fast AFib and responded ve ry well to labetalol. She was on sotalol and apixaban. Sotalol was stopped due to low blood pressur e. Past Medical History: As outlined above in the HPI. Medications: Refer to reconciliation sheet for detailed list. Medications: Reviewed. Allergies: UNKNOWN ANTIBIOTICS. Family History: No premature coronary artery disease or cancer. Social History: Does not smoke or drink. Does not use any drugs. Review of Systems: All systems reviewed are negative except as mentioned in the HPI. Physical Examination: Vital Signs: Reviewed. Head and Neck: Pupils are equal and reactive to light. No JVD. No cervical lymphadenopathy. Neck is supple. Thyroid is not enlarged. Lungs: Clear to auscultation bilaterally. No rhonchi, rales, or crackles. No accessory muscle use. Heart: Irregularly irregular. No extra sounds. Abdomen: Soft, nontender. Bowel sounds positive. No organomegaly. No masses or hernia. No rigidi ty or rebound. Extremities: No clubbing or cyanosis. Intact pulses. Skin: No rashes or nodules. Neurologic: Alert, awake, oriented x3. No acute focal deficits appreciated. Investigations: Hemoglobin is 15.4, platelet count is 226. Creatinine is 0.97. Potassium 3.7. Her creatinine was 1.17 on admission. Assessment And Recommendations: Atrial fibrillation with rapid ventricular response. Sotalol was he ld due to that. Now, her blood pressure is better. Recommend to resume the sotalol and discontinue oral amiodarone. If the patient goes into rapid AFib and blood pressure is on the low side, then I w ill recommend to load with IV amiodarone and at that time to discontinue the sotalol, but I believe h er low blood pressure was due to dehydration since the blood pressure is restored and the patient saf kee can restart on sotalol now and I will monitor the patient with you. Thank you for the consult. REN Voice ID: [id number] Report ID: [id number]
[2021-07-20] MEDS: TRAMADOL HCL 50 MG TAB PO PRN (20:57)
[2021-07-21 01:43] LABS: Arterial Blood Carboxyhemoglob 1.3 % (0-1.5); Blood Gas Oxyhemoglobin 93.5 % (94-97); Blood O2 Saturation 95.9 % (92-98.5)
--- NOTE | 2021-07-21 02:55 | PN ---
Date of Progress Note: 07/20/2021 Chief Complaint: Hglyh-qz-yjynmti kidney injury and prerenal azotemia. History Of Present Illness: The patient came to the hospital because of generalized weakness. She h as history of diabetes mellitus with renal manifestation, chronic kidney disease stage 3, hypothyroid ism, atrial fibrillation. She was found to have hyperkalemia, elevated creatinine, and lower extremi ty edema. Potassium level although has improved currently, the patient was found to have hypokalemia and borderline hyponatremia. The patient has history of recent generalized weakness, dizziness, and presyncope. X-ray done in the emergency room showed right pleural effusion with acute infiltrate. Review of Systems: Denies fever or chills. Physical Examination: Lungs: Clear to auscultation bilaterally. Heart: S1, S2. Abdomen: Soft, benign. Extremities: Slight edema. Impression And Plan: 1.Fluid overload, anasarca, protein-calorie malnutrition. The patient has history of atrial fibrill ation. She presented with weakness and presyncope. Cardiac workup is pending. 2.Pleural effusion. E-evaluate chest x-ray. 3.The patient has iwyfr-ob-dimnydj kidney injury associated with fluid overload. Continue IV Lasix. Monitor magnesium level. 4.Hypokalemia. Potassium chloride was ordered for treatment of hypokalemia. Monitor electrolytes i ncluding magnesium level. 5.Acute kidney injury. The patient will need workup to rule proteinuria and abnormal urinary sediment. Renal function overall has improved with the current errol tment. EB/MODL Voice ID: [id number] Report ID: [id number]
[2021-07-21] MEDS: SOTALOL HCL 80 MG TAB PO SCH (05:41)
[2021-07-21] MEDS: LEVOTHYROXINE SOD 0.125 MG TAB PO SCH (05:42)
[2021-07-21 07:24] LABS: Potassium 3.7 mmol/L (3.5-5.1)
[2021-07-21] MEDS: INSULIN -REGULAR HUMAN 50 UNIT/0.5 ML ML SQ SCH ×4 (07:30→21:00)
[2021-07-21] MEDS ORDERED: AMIODARONE HCL 150 MG in D5W 100 ML IV STA (09:15)
[2021-07-21] MEDS: APIXABAN 5 MG TABLET PO SCH ×2 (10:15→21:41)
[2021-07-21] MEDS: acetaZOLAMIDE 250 MG TAB PO SCH (10:15)
[2021-07-21] MEDS: HYDROCODONE/APAP 10/325 TAB PO SCH ×2 (10:16→21:39)
[2021-07-21] MEDS: MIDODRINE HCL 5 MG TABLET PO SCH ×3 (10:16→21:37)
[2021-07-21] MEDS: PANTOPRAZOLE 40MG TABLET PO SCH (10:17)
[2021-07-21] MEDS: ENSURE ENLIVE 237 ML CAN PO SCH ×2 (10:17→21:53)
--- NOTE | 2021-07-21 10:29 | P.PN ---
Subjective Date of Service: 07/21/21 Chief Complaint: Abnormal labs Subjective: Worsening (Patient is unfortunately hypotensive again) Physical Examination - Vital Signs Temperature: 96.4 F Blood Pressure: 88/51 Pulse: 67 Respirations: 12 Pulse Ox (%): 96 - Physical Exam General: In no apparent distress, Cooperative HEENT: Normocephalic Cardiovascular: Normal S1 S2, Edema, Irregular heart rate/rhythm Musculoskeletal: Swelling Neurological: Normal speech, Normal affect, Dementia Assessment And Plan - Current Problems (Diagnosis) (1) Anasarca Current Visit: Yes Status: Acute (2) Dysphagia Current Visit: Yes Status: Acute (3) GERD (gastroesophageal reflux disease) Current Visit: Yes Status: Acute (4) Moderate protein-calorie malnutrition Current Visit: Yes Status: Acute (5) Pleural effusion Current Visit: Yes Status: Acute (6) Atrial fibrillation with RVR Current Visit: No Status: Acute (7) Debility Current Visit: No Status: Acute (8) Chronic anticoagulation Current Visit: No Status: Chronic (9) Chronic renal disease Current Visit: No Status: Chronic Qualifiers: Chronic kidney disease stage: stage 3 (moderate) (10) Diabetes mellitus Current Visit: No Status: Chronic Qualifiers: Diabetes mellitus type: type 2 Diabetes mellitus longterm insulin use: without 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 Reportedly hyperkalemic, edematous and in renal failure. Patient improved with diuresis and albumin. Lower extremity Doppler negative for DVTs. Her hospital course was complicated by rapid atrial fibrillation. Rapid afib - as per EKG MIKE Bilateral Lower extremity edema Hyperkalemia-resolved Dysphagia PLAN: She is having trouble tolerating Sotalol due to hypotension Will give amiodarone bolus and transition to PO Plan to discharge tomorrow TTE with LVEF of 35% with global hypokinesis Cardiology has been consulted Continue apixaban for CVA prevention OK for dysphagia mechanical soft diet She will need an outpatient EGD with Dr. Hoyt
[2021-07-21] MEDS: TRAMADOL HCL 50 MG TAB PO PRN (13:40)
--- NOTE | 2021-07-21 22:04 | PN ---
Date of Progress Note: 07/21/2021 Subjective: Seen by bedside, was doing well. Heart rate has been controlled. Review of Systems: No chest pain, shortness of breath, orthopnea, or cough. No nausea, vomiting, or diarrhea. All othe r systems reviewed are negative. Physical Examination: Vital Signs: Reviewed. Head Exam: Pupils are equal and reactive to light. Intact eye movements. No JVD. No cervical node s. Neck: Supple. Thyroid is not enlarged. Lungs: Clear to auscultation bilaterally. No wheezing or crackles. No accessory muscle use. Heart: Irregularly irregular, but rate is controlled. Abdomen: Soft and nontender. Bowel sounds positive. No organomegaly. No masses or hernia. No rig idity or rebound. Extremities: No clubbing or cyanosis. Intact pulses. Skin: No rashes. Neurologic: Alert, awake, and oriented x3. No acute focal deficits appreciated. Lymph Nodes: No cervical lymphadenopathy. Investigations: Creatinine is 1.01. Assessment And Recommendation: 1.Atrial fibrillation, rate is controlled at the present time. She continues to have a low blood pr essure, so sotalol was not resumed. Anyway, at this point, even though her blood pressure is borderl ine, she was on high-dose sotalol. I recommend to start a lower dose at 40 mg twice a day, carefully monitor her blood pressure, and adjust further as needed. In meanwhile, continue anticoagulation [facility] as well. 2.Congestive heart failure with low ejection fraction. This patient will benefit from conversion to sinus rhythm. If the sotalol fails to put her back in sinus rhythm, she might need an amiodarone dr greco. I will discuss this further as she progresses after starting the sotalol and make a decision acc ordingly. We will try to obtain records on her previous ejection fraction. If this is a new drop, s he will need to have ischemia workup. SR/MODL Voice ID: [id number] Report ID: [id number]
--- NOTE | 2021-07-22 02:31 | PN ---
Date of Progress Note: 07/21/2021 Chief Complaint: Acute on chronic kidney injury and prerenal azotemia. History Of Present Illness: Patient came to the hospital because of generalized weakness. She has h istory of diabetes mellitus with renal manifestation, chronic kidney disease stage 3, hypothyroidism, atrial fibrillation. She was found to have hyperkalemia, elevated creatinine, elevated BUN level, l ower extremity edema. Potassium level although has improved and currently the patient was found to h ave hypokalemia and borderline hyponatremia. The patient received replacement for potassium. Patient was found to have right pleural effusion and acute infiltrate. Review of Systems: Denies fever, chills. Physical Examination: Lungs: Clear to auscultation bilaterally. Heart: S1, S2. Abdomen: Soft, benign. Extremities: Slight ankle edema. Impression And Plan: 1.Fluid overload, anasarca, protein-calorie nutrition. Patient has history of presyncope, atrial fi brillation. Cardiac workup is pending. 2.Pleural effusion. Evaluate chest x-ray. 3.Patient has acute on chronic kidney injury associated with fluid overload. Continue Lasix. Monit or magnesium and potassium level. 4.Hypokalemia. Potassium chloride was ordered for treatment of hypokalemia. 5.Acute kidney injury. Avoid nephrotoxic medications. Check urine to rule out acute active sediment. Renal function has improved with current treatment. Monitor elec trolytes and fluid balance. EB/MODL Voice ID: [id number] Report ID: [id number]
[2021-07-22 06:26] LABS: Potassium 3.5 mmol/L (3.5-5.1)
[2021-07-22] MEDS: LEVOTHYROXINE SOD 0.125 MG TAB PO SCH (06:51)
[2021-07-22] MEDS ORDERED: SOTALOL HCL 80 MG TAB PO SCH (06:56)
[2021-07-22] MEDS: INSULIN -REGULAR HUMAN 50 UNIT/0.5 ML ML SQ SCH (07:30)
[2021-07-22 08:19] VITALS: BP 133/79; TEMP 97.8
[2021-07-22 08:49] VITALS: O2SAT 92
[2021-07-22] MEDS ORDERED: POTASSIUM CL SA 10 MEQ TAB PO ONE (09:00)
[2021-07-22] MEDS ORDERED: AMIODARONE HCL 200 MG TAB PO SCH (09:00)
--- NOTE | 2021-07-22 09:10 | P.DS ---
Admission Date: 07/18/21 Discharge Date: 07/22/21 Disposition: TRANSFER TO SNF - MEDICAL Discharge Condition: GOOD Reason for Admission: Abnormal labs - Problems (1) Anasarca Current Visit: Yes Status: Acute (2) Dysphagia Current Visit: Yes Status: Acute (3) GERD (gastroesophageal reflux disease) Current Visit: Yes Status: Acute (4) Moderate protein-calorie malnutrition Current Visit: Yes Status: Acute (5) Pleural effusion Current Visit: Yes Status: Acute (6) Atrial fibrillation with RVR Current Visit: No Status: Acute (7) Debility Current Visit: No Status: Acute (8) Chronic anticoagulation Current Visit: No Status: Chronic (9) Chronic renal disease Current Visit: No Status: Chronic Qualifiers: Chronic kidney disease stage: stage 3 (moderate) (10) Diabetes mellitus Current Visit: No Status: Chronic Qualifiers: Diabetes mellitus type: type 2 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 insulin use: without penitentiary use Diabetes mellitus complication status: with other specified complication Qualified Code(s): E11.69 - Type 2 diabetes mellitus with other specified complication (11) Hypertension Current Visit: No Status: Chronic Qualifiers: Hypertension type: essential hypertension (12) Hypothyroidism Current Visit: No Status: Chronic Qualifiers: Hypothyroidism type: unspecified Qualified Code(s): E03.9 - Hypothyroidism, unspecified Hospital Course: Patient is a 86 year old female brought in for evaluation generalized weakness and was found hyperkalemic, edematous and in renal failure. Patient improved with diuresis and albumin. Lower extremity Doppler negative for DVTs. Her hospital course was complicated by rapid atrial fibrillation. She usually takes sotalol 160 mg BID. This was decreased to 40 mg BID due to low BP. I have consulted cardiology for this issue. Her LVEF was 35%. Her hospital course was complicated by dysphagia. She was seen by ENVIRONMENTAL SOLUTIONS ENGINEER and cleared for a PO diet. She will need to follow up with Dr. Hoyt for an EGD. Vital Signs/Physical Exam: Temp Pulse Resp BP Pulse Ox 97.8 F 83 18 133/79 91 07/22/21 08:00 07/22/21 08:00 07/22/21 08:00 07/22/21 08:00 07/22/21 08:00 General: Alert, In no apparent distress, Cooperative HEENT: Atraumatic, Normocephalic Respiratory: Normal air movement Cardiovascular: Irregular heart rate/rhythm Neurological: Normal speech, Normal affect Laboratory Data at Discharge: WBC 10.20 K/uL (4.3-10.9) 07/18/21 05:29 Hgb 15.4 g/dL (12.0-15.0) H 07/18/21 05:29 Hct 45.7 % (36.0-45.0) H 07/18/21 05:29 Plt Count 226 K/uL (152-406) 07/18/21 05:29 PT 15.6 SECONDS (9.5-12.5) H 07/17/21 12:00 INR 1.41 07/17/21 12:00 Sodium 135 mmol/L (136-145) L 07/22/21 05:40 Potassium 3.5 mmol/L (3.5-5.1) 07/22/21 05:40 BUN 21 mg/dL (7-18) H 07/22/21 05:40 Creatinine 0.97 mg/dL (0.55-1.3) 07/22/21 05:40 Glucose 84 mg/dL (74-106) 07/22/21 05:40 Phosphorus 3.0 mg/dL (2.5-4.9) 07/18/21 05:29 Magnesium 1.9 mg/dL (1.8-2.4) 07/19/21 07:55 Total Bilirubin 1.4 mg/dL (0.2-1.0) H 07/18/21 05:29 AST 38 U/L (15-37) H 07/18/21 05:29 ALT 20 U/L (12-78) 07/18/21 05:29 Alkaline Phosphatase 60 U/L (45-117) 07/18/21 05:29 Triglycerides 73 mg/dL (<150) 07/18/21 05:29 Cholesterol 142 mg/dL (<200) 07/18/21 05:29 HDL Cholesterol 47 mg/dL (40-60) 07/18/21 05:29 Cholesterol/HDL Ratio 3.02 07/18/21 05:29 Home Medications: Levothyroxine [Synthroid*] 125 mcg PO [id number] 04/19/17 Tramadol HCl [Ultram] 50 mg PO Q6HP PRN 04/19/17 Pantoprazole [Protonix Tab*] 40 mg PO DAILYAC #60 tab 04/21/17 Apixaban [Eliquis] 5 mg PO BID #60 tablet 05/05/20 Hydrocodone Bit/Acetaminophen [Hydrocodon-Acetaminophn 10-325] 1 tab PO BID 07/18/21 Ensure Enlive 237 ml PO BID can 07/22/21 Midodrine HCl [Proamatine*] 10 mg PO TID tab 07/22/21 Sotalol HCl [Betapace*] 40 mg PO BID 6AM 6PM tab 07/22/21 acetaZOLAMIDE [Diamox*] 250 mg PO DAILY tab 07/22/21 Followup: Luis Reynolds DO [Primary Care Provider] - Avi Hoty MD [ACTIVE - CAN ADMIT] - 1-2 Weeks (Outpatient EGD )
[2021-07-22] MEDS: MIDODRINE HCL 5 MG TABLET PO SCH (09:28)
[2021-07-22] MEDS: HYDROCODONE/APAP 10/325 TAB PO SCH (09:28)
[2021-07-22] MEDS: APIXABAN 5 MG TABLET PO SCH (09:30)
[2021-07-22] MEDS: acetaZOLAMIDE 250 MG TAB PO SCH (09:30)
[2021-07-22] MEDS: PANTOPRAZOLE 40MG TABLET PO SCH (09:30)
[2021-07-22] MEDS: ENSURE ENLIVE 237 ML CAN PO SCH (09:31)
--- NOTE | 2021-07-22 21:01 | PN ---
Date of Progress Note: 07/22/2021 Chief Complaint: Acute on chronic kidney injury, prerenal azotemia, benign nephrosclerosis, chronic kidney disease stage 3. History Of Present Illness: The patient presented to the hospital because of generalized weakness. She has history of diabetes mellitus with renal manifestation, hypothyroidism, atrial fibrillation. She was found to have hyperkalemia, elevated creatinine, and high BUN and creatinine ratio. Patient was found to have lower extremity edema. Potassium level has improved. Patient was found to have al so borderline hyponatremia due to mild fluid overload. Patient recently was found to have hypokalemi a and received potassium replacement. Electrolytes are stabilizing and renal function has improved t o baseline. The patient was found to have right purulent acute infiltrate on chest x-ray. Review of Systems: Patient denies fever, chills. Physical Examination: Lungs: Clear to auscultation bilaterally. Heart: S1, S2. Abdomen: Soft, benign. Extremities: Slight edema. Impression And Plan: 1.Fluid overload, anasarca, protein-calorie malnutrition. The patient has history of presyncope, at rial fibrillation. Cardiac workup per Cardiology. 2.Pleural effusion. Continue to monitor chest x-ray. Continue diuretics for volume control. 3.The patient has acute on chronic kidney injury associated with fluid overload. Monitor magnesium level and potassium level and continue Lasix. 4.Acute kidney injury. Avoid nephrotoxic medication. Monitor urine output to rule out active urina ry sediment. Monitor electrolytes and fluid balance. Avoid nonsteroidal anti-inflammatory medication. EB/MODL Voice ID: [id number] Report ID: [id number]
--- NOTE | 2021-07-24 08:35 | EKG ---
Test Date: 2021-07-19 Test Time: 13:48:15 [employer] Frame Builder: ANGELICA MEASUREMENT RESULTS: Intervals: Rate: 120 AK: QRSD: 78 QT: 284 QTc: 401 [place]: P: AK: QRS: -47 T: 269 INTERPRETIVE STATEMENTS: Atrial fibrillation with rapid ventricular response Left axis deviation Low voltage QRS Cannot rule out Anteroseptal infarct, age undetermined Abnormal ECG Compared to ECG 07/18/2021 09:46:03 Left-axis deviation now present Right superior axis no longer present Myocardial infarct finding still present Electronically Signed On 07-24-21 08:24:36 CDT by Tramaine Alcaraz
== END 2021-07-22 11:37 | DRG 683 ==
LOC: ER 10:55 → INTOOBSV 15:29 → OBSVTOIN 15:29 → ERHOLD 15:29 → 2ND 16:51 → OBSVTOIN 07-18 12:07
PROVIDERS: ADMIT Internal Medicine; ATTEND Internal Medicine
DX: N17.9 Acute kidney failure, unspecified (principal); E44.0 Moderate protein-calorie malnutrition; J90 Pleural effusion, not elsewhere classified; E87.1 Hypo-osmolality and hyponatremia; E87.5 Hyperkalemia; E87.6 Hypokalemia; E03.9 Hypothyroidism, unspecified; I48.91 Unspecified atrial fibrillation; I12.9 Hypertensive chronic kidney disease with stage 1 through stage 4 chronic kidney disease, or unspecified chronic kidney disease; E11.22 Type 2 diabetes mellitus with diabetic chronic kidney disease; N18.30 Chronic kidney disease, stage 3 unspecified; Z68.27 Body mass index [BMI] 27.0-27.9, adult; R13.12 Dysphagia, oropharyngeal phase; K21.9 Gastro-esophageal reflux disease without esophagitis; R53.81 Other malaise; I95.9 Hypotension, unspecified; R60.1 Generalized edema; Z79.01 Long term (current) use of anticoagulants; Z20.822 Contact with and (suspected) exposure to COVID-19
CPT/HCPCS: 36415; 71045; 74230; 76770; 80048; 80053; 80061; 80076; 81001; 81003; 82805; 82947; 83735; 83880; 84100; 84132; 84439; 84443; 84484; 85025; 85610; 92526; 92610; 92611; 93005; 93306; 93970; 94760; 96374; 97116; 97161; 97530; 99285; G0378; J0282; J1160; J1940; J3480; J7050; P9045; P9047; U0003

== ENCOUNTER 2021-07-28 08:03 | Inpatient (IN) | payer OTHER ==
[2021-07-28] MEDS ORDERED: NA CHLORIDE 0.9% 500 ML ONE (08:35)
[2021-07-28 08:57] LABS: Absolute Lymphocytes (CBC) 1.4 K/uL (0.7-4.9); Hematocrit 51.2 % (36.0-45.0); Lymphocytes % 9.9 % (15.3-44.8); MPV 8.3 fL (7.6-11.3); RBC Red Blood Cell Count 5.26 M/uL (3.86-4.86)
[2021-07-28 09:05] LABS: Protime INR 1.51
--- NOTE | 2021-07-28 09:20 | RAD REPORT ---
EXAM DESCRIPTION: CT - Head Brain Wo Cont - 07/28/2021 9:01 am CLINICAL HISTORY: Alteration of awareness/confusion COMPARISON: None TECHNIQUE: Computed axial tomography of the head was obtained. IV contrast was not requested. All CT scans are performed using dose optimization technique as appropriate and may include automated exposure control or mA/KV adjustment according to patient size. FINDINGS: An intracranial bleed is not seen . The ventricles are normal in caliber. No extra-axial fluid collection is noted. Mild low-density areas within periventricular, deep and subcortical white matter likely represent isc hemic changes secondary to small vessel disease. Mild cerebral atrophy Fluid within the sphenoid sinus IMPRESSION: No acute intracranial abnormality is seen. If patient's symptoms persist MRI of the bra in would be recommended. Fluid within the sphenoid sinus may indicate sinusitis
--- NOTE | 2021-07-28 09:28 | RAD REPORT ---
EXAM DESCRIPTION: CT - Abdomen Pelvis W Contrast - 07/28/2021 9:03 am CLINICAL HISTORY: Abdominal pain COMPARISON: none. TECHNIQUE: Computed axial tomography of the abdomen pelvis was obtained. 100 cc Isovue-300 was admin istered intravenously. Oral contrast was not requested which limits evaluation of bowel. All CT scans are performed using dose optimization technique as appropriate and may include automated exposure control or mA/KV adjustment according to patient size. FINDINGS: Small to moderate right and small left pleural effusions. Right middle lobe atelectasis. 2.7 centimeter peripherally calcified structure near the gallbladder. Spleen, pancreas, adrenals and kidneys appear unremarkable. Rectum is distended with stool. Moderate amount stool is present throughout colon. No adnexal mass Diffuse edema within subcutaneous tissues. Mild to moderate compression deformity T12 vertebral body probably relatively old. Small to moderate hiatal hernia. There is no evidence of diverticulitis. IMPRESSION: Fecal impaction. 2.7 centimeter peripherally calcified structure noted gallbladder. Is uncertain whether this represen ts a gallstone or the peripherally calcified mass within liver. If it does lie within the liver it bib avalos is benign. Small to moderate right and small left pleural effusions
[2021-07-28 09:30] LABS: Urine Blood Negative (Negative); Urine Glucose Negative (Negative); Urine Protein Negative (Negative); Urine Specific Gravity 1.015 (1.005-1.030); Urine pH 7.5 (5.0-7.0)
[2021-07-28] MEDS ORDERED: VANCOMYCIN 1 GM/VIAL ONE (09:49)
[2021-07-28] MEDS ORDERED: SOTALOL HCL 80 MG TAB ONE (09:49)
[2021-07-28] MEDS ORDERED: MAGNESIUM SULFATE 1 gm IVPB 1 GM/100 ML BAG IV ONE (09:49)
[2021-07-28] MEDS ORDERED: NA CHLORIDE 0.9% 250 ML ONE ×2 (09:50→12:30)
[2021-07-28 10:22] LABS: Urine Amorphous Sediment 2+ /HPF (NONE SEEN); Urine Bacteria <20 /HPF (<20); Urine RBC <5 /HPF (NONE SEEN)
--- NOTE | 2021-07-28 10:28 | RAD REPORT ---
EXAM DESCRIPTION: Subha Single View07/28/2021 8:46 am CLINICAL HISTORY: Chest pain COMPARISON: July 17, 2021 FINDINGS: Small to moderate right and small left pleural effusions. Right basilar atelectasis. Upper lobes appear clear. Heart remains enlarged
--- NOTE | 2021-07-28 10:38 | ER ---
Nurse's Notes [facility] Name: Laya Kim Age: 86 yrs Sex: Female : 1935 Arrival Date: 07/28/2021 Time: 08:04 Bed 19 Private MD: Diagnosis: Altered mental status, unspecified;Persistent atrial fibrillation-With RVR;Dehydration;Fecal impaction;Cellulitis of left lower limb;SARS-associated coronavirus as the cause of diseases classified elsewhere Presentation: 07/28 08:11 Chief complaint: Patient states: "The pt was sent by [facility] for jd3 increased confusion and lethargy. they reported that they found the pt trying to get into the maintenance closet. they also reported that she has had multiple recent falls and a worsening of the lower left left swelling and redness. she is normally A\\T\\O X 2 and today she is A\\T\\O 1.". Coronavirus screen: At this time, the client does not indicate any symptoms associated with coronavirus-19. Ebola Screen: No symptoms or risks identified at this time. Initial Sepsis Screen: Does the patient meet any 2 criteria? No. Patient's initial sepsis screen is negative. Does the patient have a suspected source of infection? No. Patient's initial sepsis screen is negative. Risk Assessment: Do you want to hurt yourself or someone else? Patient reports no desire to harm self or others. Onset of symptoms was July 28, 2021. 08:11 Method Of Arrival: EMS: [facility] jd3 08:11 Acuity: NATAN 2 jd3 08:11 Care prior to arrival: Glucose check: 120. jd3 08:11 Transition of care: patient was received from another setting of care (long-term care [facility] facility), [facility]. Triage Assessment: 08:20 General: Appears ill, Behavior is calm, cooperative. Pain: Unable to use pain scale. jd3 Does not appear to understand pain scale. FLACC scale score is 3 out of 10. Neuro: Level of Consciousness is awake, obeys commands, Oriented to person. Derm: swelling and redness noted to the right lower legs. Historical: - Allergies: 08:17 antibiotic medication; jd3 08:17 Snake serum; jd3 - Home Meds: 08:17 Betapace 120 mg Oral tab [Active]; Lasix 40 mg Oral tab [Active]; Eliquis 5 mg Oral tab jd3 [Active]; levothyroxine 125 mcg tab [Active]; losartan-hydrochlorothiazide 50-12.5 mg Oral tab 1 tab once daily [Active]; sotalol Oral [Active]; pantoprazole 40 mg Oral grps [Active]; tramadol 50 mg Oral TbDi [Active]; - PMHx: 08:17 Atrial Fib; Hypertension; CHF; Hypothyroidism; Myocardial infarction; pleural effusions jd3 requiring draining; - Immunization history:: Adult Immunizations unknown. - Social history:: Smoking status: unknown. - Family history:: not pertinent. - Hospitalizations: : No recent hospitalization is reported. Screenin:47 Abuse screen: Denies threats or abuse. Nutritional screening: No deficits noted. ag7 Tuberculosis screening: No symptoms or risk factors identified. Fall Risk Fall in past 12 months (25 points). Secondary diagnosis (15 points) IV access (20 points). Ambulatory Aid- None/Bed Rest/Nurse Assist (0 pts). Gait- Weak (10 pts.). Mental Status- Overestimates/Forgets Limitations (15 pts.). Total Molina Fall Scale indicates High Risk Score (45 or more points). Fall prevention measures have been instituted. Side Rails Up X 2 Placed Close to Nursing Station Frequent Obs/Assessments Occuring Family Present and informed to notify staff if the need to leave the bedside As available patient and family educated on Fall Prevention Program and Strategies. Assessment: 08:41 General: Appears ill, Behavior is calm, cooperative, quiet. Pain: Denies pain. Neuro: ag7 Level of Consciousness is awake, alert, confused, Reports. Cardiovascular: Heart tones present Bruits absent Cardiac rub absent Murmur absent Capillary refill < 3 seconds is brisk Rhythm is atrial fibrillation. Respiratory: Breath sounds are diminished bilaterally. Musculoskeletal: 08:41 Cardiovascular: Edema pitting to left midcalf, left ankle, left foot, left toes, right ag7 midcalf, right ankle, right foot and right toes erythema noted bilateral lower extremity more prominent to the LLE Chest pain patient denies chest pain when asked. 08:41 General: Appears Behavior is Smells of Reports Denies. Derm: Skin is fragile, is thin, ag7 with poor turgor Skin is dry, Skin is pale, Skin temperature is cool Wound noted Bruising that is bright red, dark purple, to upper and lower extremity bilateral, right buttock ecchymosis noted. 09:01 Reassessment: The patient is off the floor for a CT scan. ag7 09:04 Neuro: Level of Consciousness is lethargic. ag7 09:07 Reassessment: Patient return by stretcher alert and awake from CT with staff at bedside.ag7 10:08 Reassessment: Patient and/or family updated on plan of care and expected duration. Pain ag7 level reassessed. Patient is alert to person, following commands, tolerating PO fluids, family at bedside, c/o abdominal pain 10/ and the patient verbalize she is feeling like she is having a baby. Patient states feeling better. Patient states symptoms have improved. 10:57 Reassessment: Patient and/or family updated on plan of care and expected duration. Pain ag7 level reassessed. Patient is alert, oriented x 3, equal unlabored respirations, skin warm/dry/pink. Patient denies pain at this time. Patient states feeling better. 12:00 Reassessment: Patient and/or family updated on plan of care and expected duration. Pain ag7 level reassessed. Patient is alert, oriented x 3, equal unlabored respirations, skin warm/dry/pink. Patient denies pain at this time. Patient states symptoms have improved. 13:00 Reassessment: No changes from previously documented assessment. Patient and/or family ag7 updated on plan of care and expected duration. Pain level reassessed. Patient is alert, oriented x 3, equal unlabored respirations, skin warm/dry/pink. 14:00 Reassessment: No changes from previously documented assessment. Patient and/or family ag7 updated on plan of care and expected duration. Pain level reassessed. Patient is alert, oriented x 3, equal unlabored respirations, skin warm/dry/pink. Patient denies pain at this time. Vital Signs: 08:19 BP 129 / 69; Pulse 80; Resp 19 S; Temp 98.2(TE); Pulse Ox 100% on R/A; Weight 72.57 kg jd3 (R); Height 5 ft. 6 in. (167.64 cm) (R); 08:30 BP 116 / 84; Pulse 153; Resp 16 S; Pulse Ox 100% on R/A; Pain 0/10; ag7 09:33 BP 135 / 95; Pulse 155; Resp 18 S; Pulse Ox 98% on R/A; jd3 10:10 BP 133 / 105; Pulse 152 MON; Resp 20 S; Pulse Ox 98% on R/A; Pain 0/10; ag7 10:25 BP 113 / 77 LA Supine (auto/reg); Pulse 128 MON; Resp 20 S; Pulse Ox 96% on R/A; Pain ag7 0/10; 11:00 BP 115 / 78; Pulse 107; Resp 19 S; Pulse Ox 97% on R/A; jd3 12:00 BP 103 / 71 LA Supine (auto/reg); Pulse 136 MON; Resp 20 S; Pulse Ox 96% on R/A; Pain ag7 0/10; 14:30 BP 117 / 90; Pulse 127; Resp 20 S; Pulse Ox 100% on R/A; jd3 08:19 Body Mass Index 25.82 (72.57 kg, 167.64 cm) jd3 Norris Coma Score: 08:30 Eye Response: spontaneous(4). Verbal Response: confused(4). Motor Response: localizes ag7 pain(5). Total: 13. ED Course: 08:04 Patient arrived in ED. rn 08:05 Colin De La Torre MD is Attending Physician. rn 08:16 Triage completed. jd3 08:19 Arm band placed on. jd3 08:35 Libby Gomez, YOLI is Primary Nurse. ag7 08:47 Chest Single View XRAY In Process Unspecified. EDMS 08:48 Patient has correct armband on for positive identification. Placed in gown. Bed in low ag7 position. Call light in reach. Side rails up X2. Adult w/ patient. 09:03 CT Head Brain wo Cont In Process Unspecified. EDMS 09:05 CT Abd/Pelvis - IV Contrast Only In Process Unspecified. EDMS 09:14 Inserted saline lock: 20 gauge in right antecubital area, using aseptic technique. tp1 Blood collected. 09:14 EKG done, by ED staff. tp1 09:41 Straight cath inserted, using sterile technique, 16 Fr. Specimen obtained. Returned ag7 clear yellow urine. Patient tolerated well. 10:36 Fly Wade is Hospitalizing Provider. rn 14:59 No provider procedures requiring assistance completed. ag7 15:01 Patient admitted, IV remains in place. ag7 Administered Medications: 08:35 Drug: NS 0.9% 500 ml Route: IV; Rate: bolus; Site: right antecubital; ag7 10:07 Follow up: Response: No adverse reaction; IV Status: Completed infusion; IV Intake: ag7 500ml 10:06 Drug: Magnesium Sulfate 1 grams Route: IVPB; Infused Over: 1 hrs; Site: right ag7 antecubital; 10:38 Follow up: Response: No adverse reaction; No change in condition; IV Status: Completed ag7 infusion; IV Intake: 100ml 10:06 Drug: Sotalol 80 mg Route: PO; ag7 11:05 Follow up: Response: No adverse reaction jd3 10:38 Drug: vancoMYCIN 1 grams Route: IVPB; Infused Over: 2 hrs; Site: right antecubital; ag7 12:39 Follow up: Response: No adverse reaction; IV Status: Completed infusion jd3 12:39 Drug: NS 0.9% 250 ml Route: IV; Rate: 1 bolus; Site: right antecubital; jd3 13:36 Follow up: Response: No adverse reaction; Marked relief of symptoms; IV Status: ag7 Completed infusion; IV Intake: 250ml Intake: 10:07 IV: 500ml; Total: 500ml. ag7 10:38 IV: 100ml; Total: 600ml. ag7 13:36 IV: 250ml; Total: 850ml. ag7 Outcome: 10:37 Decision to Hospitalize by Provider. rn 14:59 Admitted to accompanied by tech, family with patient, via stretcher, with chart, Report ag7 called to Marito RN \\T\\ [id number] RM [id number] 14:59 Condition: stable 15:03 Patient left the ED. ag7 Signatures: Dispatcher [employer] EDMS Colin De La Torre MD MD rn Davies, Jonathon, RN RN jd3 Parker, Tiffany tp1 Libby Gomez RN RN ag7 Corrections: (The following items were deleted from the chart) 08:51 08:44 Cardiovascular: Edema pitting to left midcalf, left ankle, left foot, left toes, ag7 right midcalf, right ankle, right foot and right toes erythema noted bilateral lower extremity more prominent to the LLE Chest pain patient denies chest pain when asked. ag7 09:01 08:41 Cardiovascular: Heart tones present Bruits absent Cardiac rub absent Murmur ag7 absent Capillary refill < 3 seconds is brisk Patient's skin is warm and dry. Rhythm is atrial fibrillation ag7 : 08:44 Cardiovascular: Edema pitting to left midcalf, left ankle, left foot, left toes, ag7 right midcalf, right ankle, right foot and right toes erythema noted bilateral lower extremity more prominent to the LLE Chest pain patient denies chest pain when asked. ag7 : 08:49 EENT: ag7 ag7 : 08:49 Derm: Skin is fragile, is thin, with poor turgor Skin is dry, Skin is pale, Skin ag7 temperature is cool Wound noted Bruising that is bright red, dark purple, to upper and lower extremity bilateral ag7 : 09:04 General: Appears Behavior is Smells of Reports Denies ag7 ag7 10:16 08:41 Cardiovascular: Edema pitting to left midcalf, left ankle, left foot, left toes, ag7 right midcalf, right ankle, right foot and right toes erythema noted bilateral lower extremity more prominent to the LLE Chest pain patient denies chest pain when asked. ag7 : 08:41 Derm: Skin is fragile, is thin, with poor turgor Skin is dry, Skin is pale, Skin ag7 temperature is cool Wound noted Bruising that is bright red, dark purple, to upper and lower extremity bilateral ag7
--- NOTE | 2021-07-28 10:38 | EDPHYS ---
Physician Documentation [facility] Name: Laya Kim Age: 86 yrs Sex: Female : 1935 Arrival Date: 07/28/2021 Time: 08:04 Bed 19 Private MD: ED Physician Colin De La Torre HPI: 07/28 08:23 This 86 yrs old Female presents to ER via EMS with complaints of AMS. rn 08:23 The patient presents with confusion, decreased responsiveness, disorientation. Onset: rn The symptoms/episode began/occurred at an unknown time. Possible causes: unknown. Associated signs and symptoms: Pertinent positives: confusion, Pertinent negatives: abdominal pain, chest pain, headache, seizure, shortness of breath, vomiting. Current symptoms: In the emergency department the patient's symptoms have improved. It is unknown whether or not the patient has had similar symptoms in the past. It is unknown whether or not the patient has recently seen a physician. EMS report correction told them AMS, noticed this morning but unknown onset. No fever. Did have a fall 2 days ago, but told was more extremity bruising. Pt complains of abd pain. No vomiting or diarrhea noted.. 08:28 [facility] reported pt found walking into [facility] this morning, not making rn sense.. Historical: - Allergies: 08:17 antibiotic medication; jd3 08:17 Snake serum; jd3 - Home Meds: 08:17 Betapace 120 mg Oral tab [Active]; Lasix 40 mg Oral tab [Active]; Eliquis 5 mg Oral tab jd3 [Active]; levothyroxine 125 mcg tab [Active]; losartan-hydrochlorothiazide 50-12.5 mg Oral tab 1 tab once daily [Active]; sotalol Oral [Active]; pantoprazole 40 mg Oral grps [Active]; tramadol 50 mg Oral TbDi [Active]; - PMHx: 08:17 Atrial Fib; Hypertension; CHF; Hypothyroidism; Myocardial infarction; pleural effusions jd3 requiring draining; - Immunization history:: Adult Immunizations unknown. - Social history:: Smoking status: unknown. - Family history:: not pertinent. - Hospitalizations: : No recent hospitalization is reported. ROS: 08:23 Constitutional: Negative for fever, chills, and weight loss, Eyes: Negative for injury, rn pain, redness, and discharge, Neck: Negative for injury, pain, and swelling, Cardiovascular: Negative for chest pain, palpitations, and edema, Respiratory: Negative for shortness of breath, cough, wheezing, and pleuritic chest pain, Abdomen/GI: + abd pain MS/Extremity: Negative for injury and deformity, Skin: Negative for injury, rash, and discoloration, Neuro: Negative for headache, numbness, tingling, and seizure. Exam: 08:23 Constitutional: This is a well developed, well nourished patient who is somnolent but rn awakens to voice and oriented x person and place. Head/Face: Normocephalic, atraumatic. Eyes: Periorbital areas with no swelling, redness, or edema. ENT: + Dry MM Cardiovascular: Tachycardic, irregular Respiratory: No increased work of breathing, no retractions or nasal flaring. Abdomen/GI: soft, + lower abd tenderness with grimacing, no rebound or peritoneal signs. Skin: Warm, + LLE with erythema and warmth, no open wounds or fluctuance. MS/ Extremity: Pulses equal, no cyanosis. Neuro: Somnolent, awakens easily to voice, oriented to person and place, not time. Moves all 4 extremities with generalized weakness. 08:29 ECG was reviewed by the Attending Physician. rn Vital Signs: 08:19 BP 129 / 69; Pulse 80; Resp 19 S; Temp 98.2(TE); Pulse Ox 100% on R/A; Weight 72.57 kg jd3 (R); Height 5 ft. 6 in. (167.64 cm) (R); 08:30 BP 116 / 84; Pulse 153; Resp 16 S; Pulse Ox 100% on R/A; Pain 0/10; ag7 09:33 BP 135 / 95; Pulse 155; Resp 18 S; Pulse Ox 98% on R/A; jd3 10:10 BP 133 / 105; Pulse 152 MON; Resp 20 S; Pulse Ox 98% on R/A; Pain 0/10; ag7 10:25 BP 113 / 77 LA Supine (auto/reg); Pulse 128 MON; Resp 20 S; Pulse Ox 96% on R/A; Pain ag7 0/10; 11:00 BP 115 / 78; Pulse 107; Resp 19 S; Pulse Ox 97% on R/A; jd3 12:00 BP 103 / 71 LA Supine (auto/reg); Pulse 136 MON; Resp 20 S; Pulse Ox 96% on R/A; Pain ag7 0/10; 14:30 BP 117 / 90; Pulse 127; Resp 20 S; Pulse Ox 100% on R/A; jd3 08:19 Body Mass Index 25.82 (72.57 kg, 167.64 cm) jd3 Bennet Coma Score: 08:30 Eye Response: spontaneous(4). Verbal Response: confused(4). Motor Response: localizes ag7 pain(5). Total: 13. MDM: 08:05 Patient medically screened. rn 09:39 ED course: Atrial fibrillation with RVR now, was normal rate when arrived, takes rn sotalol daily, will give home dose, BP 130/98, HR in 130s. 10:17 ED course: Daughter states constipation and fecal impaction a chronic problem, has had rn trouble with that for some time. Daughter reports recent admission to this hospital last week, for cellulitis and CHF, and leg looks worse despite abx and admission. Pt much more alert after fluid administration. . 10:35 Differential Diagnosis: electrolyte abnormality, intracranial bleed, sepsis, UTI, rn volume depletion, CHF, atrial fibrillation with RVR, constipation, dehydration. Data reviewed: vital signs, nurses notes, lab test result(s), EKG, radiologic studies, CT scan, plain films, and as a result, I will admit patient. Counseling: I had a detailed discussion with the patient and/or guardian regarding: the historical points, exam findings, and any diagnostic results supporting the discharge/admit diagnosis, lab results, radiology results, the need for further work-up and treatment in the hospital. Response to treatment: the patient's symptoms have mildly improved after treatment, and as a result, I will admit patient. Admission orders: after a detailed discussion of the patient's condition and case, the admit orders are written by me. ED course: Admitted to Dr. Wade, who took care of her in hospital this past week. Pt just received sotalol, will cont to observe for improvement. . 11:41 ED course: HR down to 108. . rn 07/28 08:06 Order name: Blood Culture Adult (2) rn 07/28 08:06 Order name: CBC with Diff; Complete Time: 09:14 rn 07/28 08:06 Order name: CMP; Complete Time: 12:15 rn 07/28 08:06 Order name: Lactate; Complete Time: 12:15 rn 07/28 08:06 Order name: Protime (+inr); Complete Time: 09:14 rn 07/28 08:06 Order name: Ptt, Activated; Complete Time: 09:14 rn 07/28 08:06 Order name: Urine Culture rn 07/28 08:06 Order name: Urine Microscopic Only; Complete Time: 10:28 rn 07/28 08:06 Order name: Chest Single View XRAY; Complete Time: 10:28 rn 07/28 08:06 Order name: Procalcitonin; Complete Time: 12:15 rn 07/28 08:06 Order name: COVID-19/FLU A+B (Document "Date of Onset" if Symptomatic); Complete Time: rn 12:15 07/28 09:31 Order name: Urine Dipstick-Ancillary; Complete Time: 09:36 EDSD 07/28 12:14 Order name: CREATININE WHOLE BLOOD; Complete Time: 12:15 EDSD 07/28 14:43 Order name: Lactate Sepsis 2 HR Follow-up EDMS 07/28 08:06 Order name: Accucheck; Complete Time: 08:34 rn 07/28 08:06 Order name: Cardiac monitoring; Complete Time: 08:35 rn 07/28 08:06 Order name: Cath; Complete Time: 09:32 rn 07/28 08:06 Order name: EKG - Nurse/Tech; Complete Time: 08:29 rn 07/28 08:06 Order name: IV Saline Lock - Large Bore; Complete Time: 08:30 rn 07/28 08:06 Order name: Labs collected and sent; Complete Time: 08:30 rn 07/28 08:06 Order name: O2 Per Protocol; Complete Time: 08:34 rn 07/28 08:06 Order name: O2 Sat Monitoring; Complete Time: 08:34 rn 07/28 08:06 Order name: Urine Dipstick-Ancillary (obtain specimen); Complete Time: 09:32 rn 07/28 08:07 Order name: CT Abd/Pelvis - IV Contrast Only; Complete Time: 09:36 rn 07/28 08:28 Order name: CT Head Brain wo Cont; Complete Time: 09:36 rn 07/28 09:11 Order name: Labs - recollect needed: recollect green top and lactic per aleyda; Complete eb Time: 09:39 07/28 09:57 Order name: Labs - recollect needed: green top and lactate; Complete Time: 10:46 aa5 EC:29 Rate is 108 beats/min. Rhythm is irregularly irregular. QRS [place] is Normal. MA interval rn is normal. QRS interval is normal. QT interval is normal. No Q waves. T waves are Normal. No ST changes noted. Clinical impression: Atrial Fibrillation. Interpreted by me. Reviewed by me. Administered Medications: 08:35 Drug: NS 0.9% 500 ml Route: IV; Rate: bolus; Site: right antecubital; ag7 10:07 Follow up: Response: No adverse reaction; IV Status: Completed infusion; IV Intake: ag7 500ml 10:06 Drug: Magnesium Sulfate 1 grams Route: IVPB; Infused Over: 1 hrs; Site: right ag7 antecubital; 10:38 Follow up: Response: No adverse reaction; No change in condition; IV Status: Completed ag7 infusion; IV Intake: 100ml 10:06 Drug: Sotalol 80 mg Route: PO; ag7 11:05 Follow up: Response: No adverse reaction jd3 10:38 Drug: vancoMYCIN 1 grams Route: IVPB; Infused Over: 2 hrs; Site: right antecubital; ag7 12:39 Follow up: Response: No adverse reaction; IV Status: Completed infusion jd3 12:39 Drug: NS 0.9% 250 ml Route: IV; Rate: 1 bolus; Site: right antecubital; jd3 13:36 Follow up: Response: No adverse reaction; Marked relief of symptoms; IV Status: ag7 Completed infusion; IV Intake: 250ml Disposition Summary: 07/28/21 10:37 Hospitalization Ordered Hospitalization Status: Inpatient Admission rn Provider: Fly Wade rn Location: Telemetry/[facility] (Inpatient) rn Condition: Fair rn Problem: an ongoing problem rn Symptoms: have improved rn Bed/Room Type: Standard rn Room Assignment: 417(07/28/21 13:57) eb Diagnosis - Altered mental status, unspecified rn - Persistent atrial fibrillation - With RVR rn - Dehydration rn - Fecal impaction rn - Cellulitis of left lower limb rn - SARS-associated coronavirus as the cause of diseases classified elsewhere rn Forms: - Medication Reconciliation Form rn - SBAR form rn Signatures: Dispatcher [employer] Colin Lu MD MD rn Calderon, Audri RN RN aa5 Efe Kurtz RN RN jd3 Pippa Ignacio Angela, RN RN ag7 Corrections: (The following items were deleted from the chart) 13:57 10:37 asael thompson
[2021-07-28 11:00] LABS: Albumin 2.9 g/dL (3.4-5.0); Bilirubin Total 1.8 mg/dL (0.2-1.0); Potassium 3.5 mmol/L (3.5-5.1); Protein, Total 7.6 g/dL (6.4-8.2)
[2021-07-28 12:11] LABS: SARS-COV-2 RT PCR POSITIVE (NEGATIVE)
--- NOTE | 2021-07-28 13:41 | P.HP ---
Certification for Inpatient Patient admitted to: Inpatient With expected LOS: >2 Midnights Practitioner: I am a practitioner with admitting privileges, knowledge of patient current condition, hospital course, and medical plan of care. Services: Services provided to patient in accordance with Admission requirements found in Title 42 Section 412.3 of the Code of Federal Regulations Patient History Date of Service: 07/28/21 Reason for admission: Confusion, Constipation, increased lower extremity swelling History of Present Illness: 86-year-old woman with a history of chronic diastolic heart failure, peripheral edema, chronic atrial fibrillation on sotalol and Eliquis anticoagulation recently discharged from hospital 1 week ago to skilled rehab [facility] to the emergency department for multiple symptoms including altered mental status, redness and increased swelling of the lower extremities, constipation and poor oral intake. Patient was hospitalized previously for heart failure with increased leg edema and hyperkalemia which were successfully treated. She was noted to be in rapid atrial fibrillation with borderline low blood pressure. Her sotalol dose was reduced from 116 mg twice a day to 40 mg twice daily. She was also transitioned from IV Lasix to oral acetazolamide due to contraction alkalosis. [facility] jail to the emergency department due to increasing lower extremity edema with significant redness. Patient also reported to be confused and no BM for several days. Patient had a brief episode of rapid RVR in the ED which corrected. CT abdomen and pelvis is demonstrating possible fecal impaction. She has mild leukocytosis, elevated lactate and with a brief RVR meet criteria for sepsis. Patient given IV fluid in the ED. she is admitted for further management. Allergies antibiotic medication Allergy (Uncoded 05/01/20 00:32) Itching/Hives/Rash Snake serum Allergy (Uncoded 06/07/16 20:44) Unknown Home Medications: Levothyroxine [Synthroid*] 125 mcg PO [id number] 04/19/17 Tramadol HCl [Ultram] 50 mg PO Q6HP PRN 04/19/17 Pantoprazole [Protonix Tab*] 40 mg PO DAILYAC #60 tab 04/21/17 Apixaban [Eliquis] 5 mg PO BID #60 tablet 05/05/20 Ensure Enlive 237 ml PO BID can 07/22/21 Hydrocodone Bit/Acetaminophen [Hydrocodon-Acetaminophn 10-325] 1 each PO BID PRN #6 tablet 07/22/21 Midodrine HCl [Proamatine*] 10 mg PO TID tab 07/22/21 Sotalol HCl [Betapace*] 40 mg PO BID 6AM 6PM tab 07/22/21 acetaZOLAMIDE [Diamox*] 250 mg PO DAILY tab 07/22/21 - Past Medical/Surgical History Diabetic: Yes -: Diabetes mellitus type 2 -: Hypertension -: Atrial fibrillation -: Chronic anti coagulation -: Hypothyroidism Psychosocial/ Personal History: She is a . She lives with a disabled son. - Family History Father -: Heart disease Mother -: Cancer - Social History Alcohol use: No CD- Drugs: No Caffeine use: Yes Review of Systems Other: Except as documented, all other systems reviewed and negative. Physical Examination - Physical Exam General: In no apparent distress, Confused HEENT: PERRLA, Mucous membr. moist/pink, Sclerae nonicteric Neck: Supple, JVD not distended Respiratory: Clear to auscultation bilaterally, Normal air movement Cardiovascular: Normal S1 S2, Edema (Bilateral legs), Irregular heart rate/rhythm Capillary refill: <2 Seconds Gastrointestinal: Normal bowel sounds, Soft and benign, Non-distended, Tenderness (Mild tenderness in the lower abdomen) Musculoskeletal: Swelling (Bilateral legs) Integumentary: Erythema (Left lower extremity-up to thighs.) Neurological: Cranial nerves 3-12 intact, Other (No focal motor deficits) Lymphatics: No axilla or inguinal lymphadenopathy - Studies Laboratory Data (last 24 hrs) 07/28/21 10:29: Sodium 136, Potassium 3.5, BUN 23 H, Creatinine 1.18, Glucose 147 H, Total Bilirubin 1.8 H, AST 47 H, ALT 30, Alkaline Phosphatase 120 H 07/28/21 08:38: PT 16.8 H, INR 1.51, APTT 36.9 07/28/21 08:38: WBC 14.00 H D, Hgb 17.0 H, Hct 51.2 H, Plt Count 243 Assessment and Plan - Problems (Diagnosis) (1) Chronic atrial fibrillation Current Visit: Yes Status: Acute (2) Cellulitis of lower extremity Current Visit: Yes Status: Acute (3) Anasarca Current Visit: No Status: Acute (4) Debility Current Visit: No Status: Acute (5) Generalized weakness Current Visit: No Status: Acute (6) Sepsis Current Visit: Yes Status: Acute - Plan Admit patient to the medical floor. Start IV Rocephin and vancomycin for cellulitis with sepsis. Gently hydrate with D5 normal saline given poor oral intake We will treat with IV Lasix and intermittent albumin infusion for hypoalbuminemia. Blood cultures, urine cultures Nephrology consult for history of contraction alkalosis with IV Lasix. Continue acetazolamide. Treat constipation with suppositories, MiraLAX and enemas as needed. Continue Eliquis for atrial fibrillation We will continue sotalol for atrial fibrillation. - Advance Directives Does patient have a Living Will: No Does patient have a Durable POA for Healthcare: Yes
[2021-07-28] MEDS ORDERED: BISACODYL 10 MG RECTAL SUPP PR ONE (14:00)
[2021-07-28 16:26] VITALS: BMI 25.8
[2021-07-28] MEDS ORDERED: ACETAMINOPHEN 500 MG TAB PO PRN (16:31)
[2021-07-28] MEDS ORDERED: ONDANSETRON 4 MG/2 ML VIAL IV PRN (16:31)
[2021-07-28] MEDS: FUROSEMIDE 40 MG/4 ML VIAL IV SCH (17:00)
[2021-07-28] MEDS: D5 0.9 NS 1,000 ML IV SCH (17:10)
[2021-07-28] MEDS: CEFTRIAXONE 1,000 MG in NA CHLORIDE 0.9% 50 ML IVPB SCH (17:11)
[2021-07-28] MEDS: SOTALOL HCL 80 MG TAB PO SCH (17:49)
[2021-07-28] MEDS ORDERED: INFLUENZA VACCINE (for 6+ mo) 0.5 ML DOSE IMVAC ONE (18:00)
[2021-07-28] MEDS: ALBUMIN HUMAN 25% 100 ML IV SCH (18:23)
[2021-07-28] MEDS: HYDROCODONE/APAP 10/325 TAB PO PRN (19:11)
[2021-07-28] MEDS: POLYETHYL GLY 3350 17 GM/DOSE PO SCH (22:05)
[2021-07-28] MEDS: APIXABAN 5 MG TABLET PO SCH (22:05)
[2021-07-29] MEDS: ALBUMIN HUMAN 25% 100 ML IV SCH ×2 (05:00→17:00)
[2021-07-29] MEDS ORDERED: LEVOTHYROXINE SOD 0.125 MG TAB PO SCH (06:00)
[2021-07-29] MEDS ORDERED: VANCOMYCIN 1.25 GM in NA CHLORIDE 0.9% 250 ML IVPB SCH ×2 (06:00→22:00)
[2021-07-29] MEDS: SOTALOL HCL 80 MG TAB PO SCH ×2 (06:10→18:14)
[2021-07-29 06:36] LABS: Absolute Lymphocytes (CBC) 1.2 K/uL (0.7-4.9); Hematocrit 41.1 % (36.0-45.0); Lymphocytes % 9.2 % (15.3-44.8); MPV 8.5 fL (7.6-11.3); RBC Red Blood Cell Count 4.16 M/uL (3.86-4.86)
[2021-07-29 06:42] LABS: Albumin 2.5 g/dL (3.4-5.0); Bilirubin Total 1.2 mg/dL (0.2-1.0); Magnesium 2.3 mg/dL (1.8-2.4); Phosphorus 3.3 mg/dL (2.5-4.9); Protein, Total 5.8 g/dL (6.4-8.2)
[2021-07-29 06:44] LABS: Arterial Blood Carboxyhemoglob 1.5 % (0-1.5); Blood Gas Oxyhemoglobin 93.1 % (94-97); Blood O2 Saturation 95.6 % (92-98.5)
[2021-07-29 06:49] LABS: Creatine Phosphokinase 33 U/L (26-192); NT PRO-BNP 7074 pg/mL (<450)
[2021-07-29] MEDS: CEFTRIAXONE 1,000 MG in NA CHLORIDE 0.9% 50 ML IVPB SCH (08:37)
[2021-07-29] MEDS: POLYETHYL GLY 3350 17 GM/DOSE PO SCH ×2 (08:37→20:06)
[2021-07-29] MEDS: FUROSEMIDE 40 MG/4 ML VIAL IV SCH ×2 (08:38→18:15)
[2021-07-29] MEDS: APIXABAN 5 MG TABLET PO SCH ×2 (08:38→20:06)
[2021-07-29] MEDS: HYDROCODONE/APAP 10/325 TAB PO PRN ×2 (08:39→22:29)
[2021-07-29] MEDS: KCL 20 MEQ/100 mL IVPB 20 MEQ/100 ML BAG IV SCH ×2 (08:42→11:19)
--- NOTE | 2021-07-29 12:22 | P.PN ---
Subjective Date of Service: 07/29/21 Chief Complaint: Confusion, Constipation, increased lower extremity swelling Patient is more awake and interactive today. Her leg swelling and erythema have significantly improved. Patient tested positive for COVID-19. She denies any shortness of breath at the moment. Physical Examination - Vital Signs Temperature: 97.6 F Blood Pressure: 113/58 Pulse: 88 Respirations: 14 Pulse Ox (%): 96 - Studies Microbiology Data (last 24 hrs): 07/28/21 08:28 Blood - Blood Anaerobic Blood Culture - Final 07/28/21 08:38 Blood - Blood Anaerobic Blood Culture - Final Assessment And Plan - Current Problems (Diagnosis) (1) Chronic atrial fibrillation Current Visit: Yes Status: Acute (2) Cellulitis of lower extremity Current Visit: Yes Status: Acute (3) Anasarca Current Visit: No Status: Acute (4) Debility Current Visit: No Status: Acute (5) Generalized weakness Current Visit: No Status: Acute (6) Sepsis Current Visit: Yes Status: Acute (7) Functional constipation Current Visit: Yes Status: Acute - Plan Physical Exam General: In no apparent distress, more awake and interactive. HEENT: Mucous membr. moist/pink. Neck: JVD not distended Respiratory: Clear to auscultation bilaterally, Normal air movement Cardiovascular: Normal S1 S2, bilateral lower extremity edema improved. Irregular heart rate/rhythm Gastrointestinal: Normal bowel sounds, Soft and benign, Non-distended, no ten derness. Integumentary: Left lower extremity erythema improved Neurological: No focal motor deficit. Continue IV Rocephin and vancomycin for cellulitis with sepsis. Gently hydrate with D5 normal saline given poor oral intake Continue IV Lasix and intermittent albumin infusion for hypoalbuminemia. Cultures: No growth to date Nephrology consult for history of contraction alkalosis with IV Lasix. Monitor and replete electrolytes as needed. Patient had a small bowel movement with the Dulcolax suppository per daughter. Treat constipation with MiraLAX and enemas as needed. Schedule senna. Mag citrate x1, soap enema x1 Continue Eliquis for atrial fibrillation Continue sotalol for atrial fibrillation.
[2021-07-29] MEDS: D5 0.9 NS 1,000 ML IV SCH (12:31)
[2021-07-29 13:38] LABS: Phosphorus 2.9 mg/dL (2.5-4.9)
[2021-07-29 13:41] LABS: Magnesium 2.2 mg/dL (1.8-2.4)
[2021-07-29 14:59] LABS: UR PROTEIN 12.9 mg/dL (<11.9); Urine Protein/Creatinine Ratio 0.46 ratio (<0.15)
--- NOTE | 2021-07-29 18:26 | CON ---
Date of Consultation: 07/29/2021 Reason For Consultation: CHF exacerbation, fluid management, anasarca. History Of Present Illness: This is a pleasant 86-year-old female with significant past medical history of coronary artery disease complicated with congestive heart failure, ejection fraction of 35%, chronic edema secondary to cardiorenal, AFib, hypertension. The patient recently admitted to the hospital and discharged. [facility] started to have increase in leg swelling with shortness of breath. For that reason, she was transferred to the hospital. Upon arrival to the hospital, found hypoxemic, anasarca. For that reason, we have been consulted. The patient also has elevation in BUN and creatinine. Creatinine was 1.1 with GFR down to 47 with hypokalemia. Past Medical History: Includes; 1. Diabetes complicated with neuropathy. 2. Hypertension. 3. Hyperlipidemia. 4. AFib, on anticoagulation. 5. Hypothyroidism. 6. Chronic kidney disease, baseline creatinine 1.1, GFR of 47. 7. Congestive heart failure, ejection fraction of 35%. Family History: Positive for hypertension, diabetes, and cancer. Home Medications: Include levothyroxine, tramadol, pantoprazole, Eliquis, Ensure, hydrocodone, midodrine, sotalol. Allergies: TO ANTIBIOTIC AND SNAKE SERUM. Social History: [facility] in pen[facility]. Denied smoking. Denied drinking. Denied drug abuse. Review of Systems: Head and Neck: No red eye. No ear pain. GI: Decreased intake. : No polyuria. No dysuria. No hematuria. 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 Respiratory: Has shortness of breath. Cardiovascular: Has orthopnea. Has leg swelling. Endocrine: No polydipsia. Skin: No rash. Has erythema on both lower extremities. Neuro: Has neuropathy. Musculoskeletal: Generalized fatigue. Physical Examination: Vital Signs: When I saw the patient; blood pressure 113/58, pulse of 88, afebrile. The patient had good urine output of 1600. Chest: Crackles bilateral base. Heart: S1, S2. Systolic murmur. Irregular. Abdomen: Soft, nontender. Extremities: +1 edema more on the right with erythema in both lower extremities. Laboratory Data: Sodium 139, potassium 3, bicarb 30, BUN 21, creatinine 1.1, GFR of 47, calcium 7.8, phosphorus 3.3, magnesium 2.3. WBC 12.7, H and H 13.9/41.1. Current Medications: The patient on include; 1. Ceftriaxone. 2. Eliquis. 3. Sotalol. 4. Lasix. 5. Levothyroxine 125. Assessment And Plan: 1. Acute kidney injury on chronic kidney disease mostly secondary to cardiorenal, over volume. I am going to continue the patient on the diuresis. We will add spironolactone given the presence of hypokalemia and congestive heart failure, ejection fraction of 35%. 2. Hypertension, controlled, optimal with the presence of congestive heart failure. We will utilize blood pressure for more diuresis. We will add spironolactone. Continue Lasix. 3. Anasarca, multifactorial, secondary to hypothyroidism, TSH 33, superimposed with cardiorenal and renal failure. We will optimize the diuresis for the patient. We will add spironolactone and increase levothyroxine. We will follow up. 4. Congestive heart failure with exacerbation as above. 5. Hypokalemia. Start the patient on spironolactone. We will follow up. We will send for magnesium level. 6. Diabetes as by primary. Thank you, Dr. Wade for allowing us to participate in the care of your patient. time spent exam the patient face to face, reviewing the date radiology and lab , placing order , discussing the case with nursing staff and with hospitalist 65 min GAIL Voice ID: [id number] Report ID: [id number] MTDD
[2021-07-29 21:25] LABS: Potassium 3.2 mmol/L (3.5-5.1)
[2021-07-29] MEDS ORDERED: POTASSIUM 25 MEQ EFFERV TAB PO ONE ×2 (21:57→23:10)
[2021-07-29] MEDS ORDERED: DILTIAZEM HCL 125 MG/25 ML VIAL IVP ONE (23:15)
[2021-07-29] MEDS ORDERED: dilTIAZem HCL 25 MG/5 ML VIAL IV ONE (23:30)
[2021-07-30 04:04] LABS: Absolute Lymphocytes (CBC) 1.7 K/uL (0.7-4.9); Hematocrit 41.5 % (36.0-45.0); Lymphocytes % 15.1 % (15.3-44.8); MPV 8.5 fL (7.6-11.3); RBC Red Blood Cell Count 4.19 M/uL (3.86-4.86)
[2021-07-30 04:20] LABS: Albumin 2.8 g/dL (3.4-5.0); Magnesium 2.1 mg/dL (1.8-2.4); Phosphorus 2.2 mg/dL (2.5-4.9); Potassium 3.4 mmol/L (3.5-5.1)
[2021-07-30] MEDS: SOTALOL HCL 80 MG TAB PO SCH ×2 (05:45→17:27)
[2021-07-30] MEDS: LEVOTHYROXINE SOD 0.075 MG TAB PO SCH (05:45)
[2021-07-30] MEDS ORDERED: LEVOTHYROXINE SOD 0.125 MG TAB PO SCH (06:00)
[2021-07-30] MEDS ORDERED: KCL 20 MEQ/100 mL IVPB 20 MEQ/100 ML BAG IV SCH (06:00)
[2021-07-30] MEDS ORDERED: POTASSIUM PHOS IN 0.9 % NACL 15 MMOL/250 ML BAG IV ONE (08:00)
[2021-07-30] MEDS: POLYETHYL GLY 3350 17 GM/DOSE PO SCH (09:00)
[2021-07-30] MEDS ORDERED: SPIRONOLACTONE 25 MG TABLET PO SCH (09:00)
[2021-07-30] MEDS: D5 0.9 NS 1,000 ML IV SCH (10:11)
[2021-07-30] MEDS: FUROSEMIDE 40 MG/4 ML VIAL IV SCH ×2 (10:11→17:00)
[2021-07-30] MEDS: APIXABAN 5 MG TABLET PO SCH ×2 (10:13→21:00)
[2021-07-30] MEDS: CEFTRIAXONE 1,000 MG in NA CHLORIDE 0.9% 50 ML IVPB SCH (10:13)
[2021-07-30] MEDS: HYDROCODONE/APAP 10/325 TAB PO PRN ×2 (10:18→22:34)
[2021-07-30] MEDS ORDERED: POLYETHYL GLY 3350 17 GM/DOSE PO PRN (12:20)
[2021-07-30] MEDS ORDERED: METOPROLOL TAR 25 MG TAB PO SCH (12:20)
--- NOTE | 2021-07-30 12:24 | P.PN ---
Subjective Date of Service: 07/30/21 Chief Complaint: Confusion, Constipation, increased lower extremity swelling Patient states she feels much better today. Daughter reports she had a large bowel movement yesterday. She is experiencing RVR today. She denies any shortness of breath. Leg swelling and erythema have improved. Physical Examination - Vital Signs Temperature: 97.2 F Blood Pressure: 117/82 Pulse: 106 Respirations: 20 Pulse Ox (%): 97 - Studies Microbiology Data (last 24 hrs): 07/28/21 09:27 Catheterized Urine [place] Count - Final No growth. 07/28/21 09:27 Catheterized Urine - Final No growth. 07/28/21 08:28 Blood - Blood Anaerobic Blood Culture - Final 07/28/21 08:38 Blood - Blood Anaerobic Blood Culture - Final Assessment And Plan - Current Problems (Diagnosis) (1) Chronic atrial fibrillation Current Visit: Yes Status: Acute (2) Cellulitis of lower extremity Current Visit: Yes Status: Acute (3) Anasarca Current Visit: No Status: Acute (4) Debility Current Visit: No Status: Acute (5) Generalized weakness Current Visit: No Status: Acute (6) Sepsis Current Visit: Yes Status: Acute (7) Functional constipation Current Visit: Yes Status: Acute - Plan Physical Exam General: In no apparent distress, more awake and interactive. HEENT: Mucous membr. moist/pink. Neck: JVD not distended Respiratory: Clear to auscultation bilaterally, Normal air movement Cardiovascular: Normal S1 S2, bilateral lower extremity edema improved. Irregular heart rate/rhythm, rapid. Gastrointestinal: Normal bowel sounds, Soft and benign, Non-distended, no tenderness. Integumentary: Left lower extremity erythema improved Neurological: No focal motor deficit. Continue IV Rocephin and vancomycin for cellulitis with sepsis. Patient oral intake is improving. Discontinue IV fluid. Continue IV Lasix and intermittent albumin infusion for hypoalbuminemia. Cultures: No growth to date Nephrology following and assisting with management. Monitor and replete electrolytes as needed. Patient had a successful bowel movement with enema and MiraLAX. Continue senna. Continue Eliquis for atrial fibrillation Continue sotalol for atrial fibrillation. Blood pressure has been stable. Add low-dose short acting Cardizem for heart rate control. Patient is asymptomatic from the COVID-19 infection.
[2021-07-30] MEDS: POTASSIUM 25 MEQ EFFERV TAB PO ONE ×2 (12:25→13:30)
[2021-07-30] MEDS: DILTIAZEM HCL 60 MG TAB PO SCH ×2 (13:30→18:00)
--- NOTE | 2021-07-30 19:16 | PN ---
Date of Progress Note: 07/30/2021 Subjective: The patient was admitted with anasarca. The patient was diuresed yesterday, respond to diuresis very well. Kidney function has been normalized. Physical Examination: Vital Signs: Blood pressure 117/82, pulse of 106, afebrile. The patient had good urine output of 4700, the patient negative of 800. Chest: Clear to auscultation. Heart: S1, S2. Regular. Abdomen: Soft and nontender. Extremities: Erythema, both lower extremities, wrinkling on the skin of residual of the bilateral edema. Laboratory Data: WBC 11.4, H and H 13.7/41.5. Sodium 139, potassium 3.4, bicarb 29, BUN 21, creatinine down to 0.8, GFR of 63, calcium of 8, phosphorus 2.2, magnesium 2.1, albumin 2.8. Corrected calcium is 8.8. Current Medications: The patient includes ceftriaxone, Eliquis, diltiazem 60 q.6 hours, spironolactone 50 daily, Lasix 40 b.i.d., levothyroxine 150, and KCl. Assessment And Plan: 1. Acute kidney injury secondary to cardiorenal, recovered, resolved. 2. Hypertension, controlled, optimal. Continue to utilize the blood pressure for more diuresis. We will continue on the spironolactone 50 and aggressive diuresis to establish better volume control given the ejection fraction of 35%. 3. Anasarca, multifactorial, secondary to hypothyroidism, cardiorenal, as above. Continue spironolactone, Lasix, and the levothyroxine. We will follow up. Repeat TSH in 4- to 6-week. 4. Altered mental status, back to baseline. time spent exam the patient face to face, reviewing the date radiology and lab , placing order , discussing the case with nursing staff and with hospitalist 45 min MELISSA/GOSIA Voice ID: [id number] Report ID: [id number] MTDMary
[2021-07-30] MEDS: SENOSIDES 8.6 MG TAB PO SCH (21:00)
[2021-07-30] MEDS ORDERED: POTASSIUM 25 MEQ EFFERV TAB PO ONE (21:00)
[2021-07-30] MEDS ORDERED: POTASSIUM CL SA 10 MEQ TAB PO ONE (21:18)
[2021-07-31 04:17] LABS: Albumin 2.4 g/dL (3.4-5.0); Magnesium 2.1 mg/dL (1.8-2.4); Phosphorus 2.4 mg/dL (2.5-4.9); Potassium 3.7 mmol/L (3.5-5.1)
[2021-07-31] MEDS ORDERED: MORPHINE 2 MG/ML SYR IV ONE (04:35)
[2021-07-31] MEDS: DILTIAZEM HCL 60 MG TAB PO SCH ×4 (06:00→17:29)
[2021-07-31] MEDS: SOTALOL HCL 80 MG TAB PO SCH ×2 (06:50→16:26)
[2021-07-31] MEDS: LEVOTHYROXINE SOD 0.075 MG TAB PO SCH (07:02)
--- NOTE | 2021-07-31 09:31 | EKG ---
Test Date: 2021-07-28 Test Time: 08:19:23 Brick Wheeler: ANGELICA MEASUREMENT RESULTS: Intervals: Rate: 108 ID: QRSD: 80 QT: 324 QTc: 434 [place]: P: ID: QRS: 17 T: 247 INTERPRETIVE STATEMENTS: Atrial fibrillation with rapid ventricular response with premature ventricular or aberrantly conducted complexes Low voltage QRS Cannot rule out Anteroseptal infarct, age undetermined Abnormal ECG Compared to ECG 07/19/2021 13:48:15 Ventricular premature complex(es) now present Left-axis deviation no longer present Myocardial infarct finding still present Electronically Signed On 07-31-21 09:26:14 CDT by Tramaine Alcaraz
--- NOTE | 2021-07-31 09:31 | EKG ---
Test Date: 2021-07-28 Test Time: 09:30:30 Manager File: ANGELICA MEASUREMENT RESULTS: Intervals: Rate: 160 NC: QRSD: 80 QT: 252 QTc: 411 [place]: P: NC: QRS: -73 T: 260 INTERPRETIVE STATEMENTS: Atrial fibrillation with rapid ventricular response with premature ventricular or aberrantly conducted complexes Low voltage QRS Left anterior fascicular block Cannot rule out Anteroseptal infarct, age undetermined ST & T wave abnormality, consider inferior ischemia or digitalis effect Abnormal ECG Compared to ECG 07/28/2021 08:19:23 Left anterior fascicular block now present ST (T wave) deviation now present Possible ischemia now present Myocardial infarct finding still present Electronically Signed On 07-31-21 09:26:13 CDT by Tramaine Alcaraz
[2021-07-31] MEDS: SENOSIDES 8.6 MG TAB PO SCH ×2 (09:46→20:53)
[2021-07-31] MEDS: CEFTRIAXONE 1,000 MG in NA CHLORIDE 0.9% 50 ML IVPB SCH (10:00)
[2021-07-31] MEDS: SPIRONOLACTONE 25 MG TABLET PO SCH (10:01)
[2021-07-31] MEDS: APIXABAN 5 MG TABLET PO SCH ×2 (10:02→20:53)
[2021-07-31] MEDS: FUROSEMIDE 40 MG/4 ML VIAL IV SCH (10:02)
[2021-07-31] MEDS ORDERED: POTASSIUM PHOS IN 0.9 % NACL 15 MMOL/250 ML BAG IV ONE (12:30)
[2021-07-31] MEDS: HYDROCODONE/APAP 10/325 TAB PO PRN ×2 (13:08→20:53)
--- NOTE | 2021-07-31 14:51 | P.PN ---
Subjective Date of Service: 07/31/21 Chief Complaint: Confusion, Constipation, increased lower extremity swelling Patient with abdominal pain last night. She suspects this is due to gas. Last bowel movement was yesterday. Leg swelling and erythema have improved. Physical Examination - Vital Signs Temperature: 97.4 F Blood Pressure: 127/58 Pulse: 140 Respirations: 18 Pulse Ox (%): 96 Assessment And Plan - Current Problems (Diagnosis) (1) Chronic atrial fibrillation Current Visit: Yes Status: Acute (2) Cellulitis of lower extremity Current Visit: Yes Status: Acute (3) Anasarca Current Visit: No Status: Acute (4) Debility Current Visit: No Status: Acute (5) Generalized weakness Current Visit: No Status: Acute (6) Sepsis Current Visit: Yes Status: Acute (7) Functional constipation Current Visit: Yes Status: Acute - Plan Physical Exam General: In no apparent distress, more awake and interactive. HEENT: Mucous membr. moist/pink. Neck: JVD not distended Respiratory: Clear to auscultation bilaterally, Normal air movement Cardiovascular: Normal S1 S2, bilateral lower extremity edema improved. Irregular heart rate/rhythm, rapid. Gastrointestinal: Normal bowel sounds, Soft and benign, Non-distended, no tenderness. Integumentary: Left lower extremity erythema improved Neurological: No focal motor deficit. Plan: Lower extremity cellulitis significantly improved. Change IV antibiotics to p.o. cefuroxime. Patient to complete a total of 7 days of antibiotic treatment. Patient oral intake has improved. IV fluid discontinued. Bicarb level has been stable. Transition from IV Lasix to oral Lasix. Cultures: No growth to date Nephrology following and assisting with management. Monitor and replete electrolytes as needed. Patient had a successful bowel movement with enema and MiraLAX. She is now complaining of abdominal pain. Obtain KUB. Continue senna. Continue Eliquis for atrial fibrillation Continue sotalol for atrial fibrillation. Blood pressure has been stable. Patient tolerated IV Cardizem. Started on low-dose short acting Cardizem for heart rate control. Patient is asymptomatic from the COVID-19 infection. Continue PT.
--- NOTE | 2021-07-31 15:35 | RAD REPORT ---
EXAM DESCRIPTION: RAD - Abdomen 1 View (KUB) - 07/31/2021 3:18 pm CLINICAL HISTORY: Abdominal pain, Constipation, gas. COMPARISON: Abdomen Pelvis W Contrast dated 07/28/2021 FINDINGS: Moderate stool volume fills but does not distend the rectum. Rectal stool volume is less t flores seen on the 07/28/2021 CT study. Moderate stool volume seen in the right-side of the colon. Multi ple prominent but nondilated air-filled small bowel loops are present. No free air or pneumatosis. Kalen wel obstruction is unlikely. This has an ileus or enteritis appearance. No suspicious calcifications noted. Eggshell calcification in the right upper quadrant matches the CT study. No suspicious calcifi cations. Advanced bony degenerative changes present. IMPRESSION: Prominent small bowel pattern consistent with ileus or enteritis. Moderate stool volume fills but does not distend the rectum. Stool volume is less than seen on the [facility] 25 CT study.
[2021-07-31] MEDS: FUROSEMIDE 40 MG TABLET PO SCH (16:27)
[2021-07-31] MEDS: CEFUROXIME 250 MG TAB PO SCH (20:53)
--- NOTE | 2021-08-01 02:56 | PN ---
Date of Progress Note: 07/31/2021 Chief Complaint: Fluid overload, anasarca, acute kidney injury. Review of Systems: The patient denies fever or chills. She complains of generalized weakness. She had history of conge stive heart failure, systolic dysfunction, Cardiorenal syndrome. She developed acute kidney injury s econdary to cardiorenal syndrome and renal function has improved. The patient is on Lasix and spiron olactone. She denies PND or orthopnea, although the patient complains of generalized weakness and denies chest pain. Physical Examination: Lungs: Clear to auscultation bilaterally. Heart: S1, S2. Abdomen: Soft, benign. Extremities: Some edema in both legs, although improved. Laboratory Data: Sodium 141, potassium 3.7, BUN 22, creatinine 0.69, glucose 115, phosphorus 2.4, ca lcium 8.0, magnesium 2. Impression And Plan: 1.Jjyiv-en-cujhxmr kidney injury. Renal function has improved. High BUN and creatinine ratio secon mina to cardiorenal syndrome and diuretic. Continue spironolactone and Lasix. The patient has systo lic function and congestive heart failure associated with anasarca. The patient although was found t o have hypothyroidism, which is likely contributory to edema. Continue thyroid medication. The iam ent is on levothyroxine. 2.Altered mental status, encephalopathy. Mental status is back to baseline. 3.The patient has history of hypertension. Continue blood pressure medication. EB/MODL Voice ID: [id number] Report ID: [id number]
[2021-08-01 04:42] LABS: Hematocrit 44.8 % (36.0-45.0); Lymphocytes % 17.9 % (15.3-44.8); MPV 8.9 fL (7.6-11.3); RBC Red Blood Cell Count 4.56 M/uL (3.86-4.86)
[2021-08-01 05:13] LABS: Albumin 2.4 g/dL (3.4-5.0); Phosphorus 2.8 mg/dL (2.5-4.9)
[2021-08-01 05:15] LABS: Potassium 3.8 mmol/L (3.5-5.1)
[2021-08-01] MEDS: DILTIAZEM HCL 60 MG TAB PO SCH ×3 (06:00→12:00)
[2021-08-01] MEDS: LEVOTHYROXINE SOD 0.075 MG TAB PO SCH (06:18)
[2021-08-01] MEDS: SOTALOL HCL 80 MG TAB PO SCH ×2 (06:18→17:48)
--- NOTE | 2021-08-01 06:42 | P.PN ---
Date of Service: 08/01/21 Subjective: had BM yesterday, felt better. continues with intermittent abdominal discomfort denies nausea/vomiting. states discomfort has been going on for years, worse when she is more constipated feels swelling has improved ROS: 10 point ROS as noted above, otherwise negative Physical exam GEN: Alert, oriented, hard of hearing HEENT: Normal conjunctiva, sclera anicteric CV: irregularly irregular rhythm, 2+ b/l edema Pulm: Nonlabored respirations on room air ABD: Soft, nontender, nondistended Neuro: Normal speech, normal affect Integumentary: LLE: minimal erythema bentley in place Problem List Anasarca acute on chronic systolic CHF exacerbation (EF:35%) Sepsis secondary to left lower extremity cellulitis, without severe sepsis/septic shock hypokalemia chronic afib Debility, generalized weakness functional constipation swelling improved hypokalemia improved with spironolactone continue cefuroxime for cellulitis - needs total 7 days renal function stable, PO intake improved KUB with ileus vs enteritis continue PO lasix / spironolactone Nephrology following continue senna, laxatives as needed continue sotalol and eliquis for afib. patient occasionally into RVR to 140s. Cardiology consulted - patient has h/o side effects to cardizem, low blood pressure. Sotalol was decreased last hospitalization dc bentley Code: full Dispo: anticipate stable for dc in 1-2 days, [facility], unable to return to [facility] due to COVID+ Time Spent Managing Pts Care (In Minutes): 35
[2021-08-01] MEDS: SPIRONOLACTONE 25 MG TABLET PO SCH (08:11)
[2021-08-01] MEDS: SENOSIDES 8.6 MG TAB PO SCH ×2 (08:11→22:02)
[2021-08-01] MEDS: CEFUROXIME 250 MG TAB PO SCH ×2 (08:12→22:02)
[2021-08-01] MEDS: APIXABAN 5 MG TABLET PO SCH ×2 (08:13→22:02)
[2021-08-01] MEDS: FUROSEMIDE 40 MG TABLET PO SCH ×2 (08:13→17:43)
[2021-08-01] MEDS ORDERED: POTASSIUM CL SA 10 MEQ TAB PO ONE (09:00)
[2021-08-01] MEDS: HYDROCODONE/APAP 10/325 TAB PO PRN ×2 (11:12→22:02)
--- NOTE | 2021-08-01 15:15 | PN ---
Date of Progress Note: 08/01/2021 Subjective: The patient was admitted with anasarca. The patient was diuresed aggressively. Kidney function maintained good. Physical Examination: Vital Signs: Blood pressure 106/63, pulse of 84, afebrile. Chest: Faint rales bilateral. Heart: S1, S2 regular. Abdomen: Nontender. No organomegaly. Extremities: Erythema bilateral. Laboratory Data: WBC 11.3, H and H of 14.8/44.8. Sodium 142, potassium 3.8, bicarb 30, BUN 22, crea tinine 0.7. Calcium 8.1, phosphorus 2.8, magnesium of 2. Current Medications: The patient on include cefuroxime, Eliquis, spironolactone, sotalol, diltiazem 60 q.6 h., Lasix 40 b.i.d., Zofran, morphine. Assessment And Plan: 1.Anasarca, multifactorial, secondary to hypothyroidism/renal failure, recovered. Continue current diuresis dose. 2.Hypertension, controlled optimal, continue current treatment. 3.Congestive heart failure with exacerbation, ejection fraction of 35%. Continue current treatment. Continue spironolactone. 4.Hypokalemia, recovered on the spironolactone. We will follow up. GAIL Voice ID: [id number] Report ID: [id number]
[2021-08-01 18:10] VITALS: O2SAT 96
--- NOTE | 2021-08-01 18:28 | CON ---
Date of Consultation: 08/01/2021 History Of Present Illness: Atrial fibrillation and CHF exacerbation. History Of Present Illness: Ms. Kim is an 86-year-old woman. She lives in the [facility]. She is known to have chronic atrial fibrillation as well as congestive heart failure in the [facility]. She came in on 07/28/2021 with multiple medical problems including COVID positive, ileus, altere d mental status. She denied any chest pain or shortness of breath, nausea or vomiting, or diaphoresi s. Denied any PND or orthopnea, but has had pedal edema and has had abdominal pain. Past Medical History: Include atrial fibrillation, hypothyroidism, hypertension, gastroesophageal re flux disease.. Allergies: INCLUDE SNAKE SERUM. Medications: At home include Betapace 120 b.i.d., Lasix 40 daily, Eliquis 5 mg b.i.d., Synthroid, lo sartan with hydrochlorothiazide, pantoprazole 40 mg daily, and tramadol 50 mg daily. Review of Systems: Negative. Social History: Negative. Family History: Noncontributory. Physical Examination: Vital Signs: When I saw her today, her blood pressure was 100/50. She was in atrial fibrillation at a rate 89. Her O2 saturation was 96% on room air. Physical examination was not done by me, but was noted in the chart that it was fairly unremarkable except for 2+ pedal edema to the knees, which was obvious to me.. Diagnostic Data: Her creatinine was 0.77. Her white count was 11,000. Her glucose was 123. She diaz d a KUB x-ray on 07/31/2021, consistent with the ileus. EKG basically showed atrial fibrillation ini tially with rapid ventricular response. Today, her heart rate is 90. Chest x-ray shows [id number] erate right and small pleural effusion. Echocardiogram, which was done on 07/19/2021 showed an eject ion fraction of 35% with moderate global hypokinesis. Impression And Plan: 1.Acute on chronic systolic congestive heart failure. 2.Chronic atrial fibrillation. 3.Hypertension. 4.Hypothyroidism. 5.Ileus. The patient is presently on Eliquis, antibiotics, Lasix p.o., Synthroid, potassium, and she is on sot alol 80 mg b.i.d., spironolactone 50 mg daily. I agree with her present regimen. I will avoid the u se of diltiazem. Continue sotalol. You can give digoxin 0.25 mg IV daily if her heart rate becomes fast. Other option will be amiodarone if her heart rate becomes fast. For now, I would agree with h er present regimen. I think she hopefully should be ready for discharge in the very near future. On e thing that we may consider adding will be an PRIMITIVO inhibitor, possibly lisinopril 5 mg or 10 mg daily if her blood pressure tolerates it down the road. I will discuss the case further with Dr. De La Torre. LINUS/GOSIA Voice ID: [id number] Report ID: [id number]
[2021-08-02 04:05] LABS: Albumin 2.4 g/dL (3.4-5.0); Phosphorus 2.7 mg/dL (2.5-4.9); Potassium 3.6 mmol/L (3.5-5.1)
[2021-08-02] MEDS: LEVOTHYROXINE SOD 0.075 MG TAB PO SCH (05:22)
[2021-08-02] MEDS: SOTALOL HCL 80 MG TAB PO SCH ×2 (05:22→17:27)
[2021-08-02] MEDS: HYDROCODONE/APAP 10/325 TAB PO PRN ×2 (05:22→15:50)
--- NOTE | 2021-08-02 06:48 | P.PN ---
Date of Service: 08/02/21 Subjective: ROS: 10 point ROS as noted above, otherwise negative Physical exam GEN: Alert, oriented, hard of hearing HEENT: Normal conjunctiva, sclera anicteric CV: irregularly irregular rhythm, 2+ b/l edema Pulm: Nonlabored respirations on room air ABD: Soft, nontender, nondistended Neuro: Normal speech, normal affect Integumentary: LLE: minimal erythema bentley in place Problem List Anasarca acute on chronic systolic CHF exacerbation (EF:35%) Sepsis secondary to left lower extremity cellulitis, without severe sepsis/septic shock hypokalemia chronic afib Debility, generalized weakness functional constipation swelling improved hypokalemia improved with spironolactone continue cefuroxime for cellulitis - needs total 7 days renal function stable, PO intake improved KUB with ileus vs enteritis continue PO lasix / spironolactone Nephrology following continue senna, laxatives as needed continue sotalol and eliquis for afib. patient occasionally into RVR to 140s. Cardiology consulted - patient has h/o side effects to cardizem, low blood pressure. Sotalol was decreased last hospitalization dc bentley Code: full Dispo: anticipate stable for dc in 1-2 days, [facility], unable to return to [facility] due to COVID+ Time Spent Managing Pts Care (In Minutes): 35
[2021-08-02] MEDS ORDERED: POTASSIUM CL SA 10 MEQ TAB PO ONE (09:00)
[2021-08-02] MEDS ORDERED: MIDODRINE HCL 5 MG TABLET PO SCH ×2 (09:00→14:00)
[2021-08-02] MEDS: SPIRONOLACTONE 25 MG TABLET PO SCH (09:26)
[2021-08-02] MEDS: APIXABAN 5 MG TABLET PO SCH (09:26)
[2021-08-02] MEDS: FUROSEMIDE 40 MG TABLET PO SCH ×2 (09:27→17:00)
[2021-08-02] MEDS: SENOSIDES 8.6 MG TAB PO SCH (09:27)
[2021-08-02] MEDS: CEFUROXIME 250 MG TAB PO SCH (09:27)
[2021-08-02] MEDS ORDERED: FUROSEMIDE 40 MG/4 ML VIAL IV ONE (10:34)
--- NOTE | 2021-08-02 12:39 | PN ---
Date of Progress Note: 08/02/2021 Subjective: The patient was admitted with anasarca. Her anasarca was multifactorial secondary to ca rdiorenal/hypothyroidism. The patient has been diuresis aggressively. Swelling started to subside, but is still present. Physical Examination: Vital Signs: Blood pressure 119/71, pulse of 120, afebrile. The patient had good urine output. Fol ey has been removed yesterday. Usually, having clear urine output around 1.5 L. As weight tomas, the patient still does not have significant change in her weight. Chest: Faint rales bilateral, more prominent on the right side. Heart: S1, S2. Tachycardic. Abdomen: Soft, nontender. Extremity: +2 edema, but the patient has significant improvement in her edema. Has erythema bilater al. Neurologic: Alert. No focality. Laboratory Data: WBC 11.3, H and H 14.8/44.8. Sodium 140, potassium 3.6, bicarb 29, BUN 23, creatin ine 0.9, calcium 8.1, phosphorus 2.7, magnesium of 2, albumin 2.4. Corrected calcium is 9.3. Current Medications: The patient on is include, 1.Cefuroxime. 2.Midodrine. 3.Eliquis. 4.Sotalol. 5.Spironolactone. 6.Lasix 40 b.i.d. 7.Zofran. Assessment And Plan: 1.Acute kidney injury secondary to cardiorenal, recovered, resolved. Still has significant peripher al edema. I am going to go ahead and give her extra dose of Lasix today and we will follow up. Cont inue spironolactone and maintenance Lasix. 2.Hypertension, currently blood pressure on the marginal. The patient was started on midodrine. I am going to go ahead and decrease it to 5 mg to avoid worsening her peripheral edema as blood pressur e has been stable for the time being and we will follow up. We will put holding parameters. We will utilize blood pressure for more diuresis. 3.Tachycardia. The patient was started on sotalol. We will follow up. 4.Anasarca secondary to cardiorenal/hypothyroidism. We increased the levothyroxine. As I mentioned , we are giving extra dose of Lasix and we will decrease the midodrine to avoid worsening and we will follow up the patient closely. 5.Deconditioning. Continue PT/OT. MA/MODL Voice ID: [id number] Report ID: [id number]
[2021-08-02 13:45] VITALS: BP 98/70; TEMP 97.4
--- NOTE | 2021-08-02 13:56 | P.DS ---
Admission Date: 07/28/21 Discharge Date: 08/02/21 Discharge Condition: GOOD Reason for Admission: Confusion, Constipation, increased lower extremity swelling Consultations: Nephrology - Dr. Santos Neurology - Dr. Verduzco Cardiology - Dr. Alcaraz Procedures: CXR (07/28): FINDINGS: Small to moderate right and small left pleural effusions. Right basilar atelectasis. Upper lobes appear clear. Heart remains enlarged CT Abd/pelvis (07/28): FINDINGS: Small to moderate right and small left pleural effusions. Right middle lobe atelectasis. 2.7 centimeter peripherally calcified structure near the gallbladder. Spleen, pancreas, adrenals and kidneys appear unremarkable. Rectum is distended with stool. Moderate amount stool is present throughout colon. No adnexal mass Diffuse edema within subcutaneous tissues. Mild to moderate compression deformity T12 vertebral body probably relatively old. Small to moderate hiatal hernia. There is no evidence of diverticulitis. IMPRESSION: Fecal impaction. 2.7 centimeter peripherally calcified structure noted gallbladder. Is uncertain whether this represents a gallstone or the peripherally calcified mass within liver. If it does lie within the liver it likely is benign. CT Head (07/28): FINDINGS: An intracranial bleed is not seen . The ventricles are normal in caliber. No extra-axial fluid collection is noted. Mild low-density areas within periventricular, deep and subcortical white matter likely represent ischemic changes secondary to small vessel disease. Mild cerebral atrophy Fluid within the sphenoid sinus IMPRESSION: No acute intracranial abnormality is seen. If patient's symptoms persist MRI of the brain would be recommended. Fluid within the sphenoid sinus may indicate sinusitis KUB (07/28): FINDINGS: Moderate stool volume fills but does not distend the rectum. Rectal stool volume is less than seen on the 07/28/2021 CT study. Moderate stool volume seen in the right-side of the colon. Multiple prominent but nondilated air- filled small bowel loops are present. No free air or pneumatosis. Bowel obstruction is unlikely. This has an ileus or enteritis appearance. No suspicious calcifications noted. Eggshell calcification in the right upper quadrant matches the CT study. No suspicious calcifications. Advanced bony degenerative changes present. IMPRESSION: Prominent small bowel pattern consistent with ileus or enteritis. Moderate stool volume fills but does not distend the rectum. Stool volume is less than seen on the July 28 CT study. Problem List Anasarca secondary to acute on chronic systolic CHF exacerbation (EF:35%) Sepsis secondary to left lower extremity cellulitis, without severe sepsis/septic shock hypokalemia chronic afib Debility, generalized weakness functional constipation mild dementia Brief History of Present Illness: 86yo F, PMH: chronic diastolic Chf, peripheral edema, chronic afib on sotalol and eliquis. Presented to ED from residential due to multiple symptoms: altered mental status, redness and increased swelling of lower extremities, constipation, and poor oral intake. Patient was hospitalized previously for heart failure with increased leg edema and hyperkalemia which were successfully treated. She was noted to be in rapid atrial fibrillation with borderline low blood pressure. Her sotalol dose was reduced from 116 mg twice a day to 40 mg twice daily. She was also transitioned from IV Lasix to oral acetazolamide due to contraction alkalosis. Patient returned from the residential to the emergency department due to increasing lower extremity edema with significant redness. Patient also reported to be confused and no BM for several days. Patient had a brief episode of rapid RVR in the ED which corrected. CT abdomen and pelvis is demonstrating possible fecal impaction. She has mild leukocytosis, elevated lactate and with a brief RVR meet criteria for sepsis. Patient given IV fluid in the ED. she is admitted for further management. Hospital Course: Patient was found to be in acute on chronic congestive heart failure with anasarca and significant bilateral lower extremity edema. She was noted to have left lower extremity erythema and treated for cellulitis. She had gradual improvement with diruesis and cefuroxime (end date: 08/07). A temporary bentley catheter was used for monitoring of urine output. She was also noted to have acute on chronic constipation, with fecal impaction. This resolved with laxatives and ongoing bowel regimen. During her hospitalization she was noted to have heart rates up to 120s at times, in atrial fibrillation. Cardiology was consulted, patient's sotalol was titrated up and blood pressure remained stable in 90s-110s systolic. (previously decreased in an earlier hospitalization due to low blood pressure). Her home dose of memantine was restarted at lower dose to minimize risk / complication of fluid retention / leg edema. May need to be uptitrated as edema continues to improve. Incidentally positive for COVID-19. No pneumonia was seen on chest x-ray, and patient did not require oxygen supplementation. Patient's daughter requested neurology consult for cognitive evaluation. Dr. Vreduzco evaluated the patient and felt she did quite well, with some minor memory impairments. [place] hard of hearing could contribute to others thinking she is confused / forgetful, when she just can't hear properly. Recommended outpatient MRI for further workup for dementia and initiating memanting 5mg daily, and will uptitrate in ~1 month. She is discharged to continue on furosemide, spironolactone, antibiotics. Follow up with Nephrology in a few weeks. Follow up with Dr. Alcaraz in a few weeks. Follow up with PCP within 1 week. Follow up with Dr. Verduzco, will need outpatient MRI for further workup of dementia. Vital Signs/Physical Exam: Temp Pulse Resp BP Pulse Ox 97.4 F 105 H 16 98/70 97 08/02/21 12:00 08/02/21 12:00 08/02/21 12:00 08/02/21 12:00 08/02/21 12:00 Physical exam GEN: Alert, oriented, hard of hearing HEENT: Normal conjunctiva, sclera anicteric CV: irregularly irregular rhythm, 2+ b/l edema Pulm: Nonlabored respirations on room air ABD: Soft, nontender, nondistended Neuro: Normal speech, normal affect Integumentary: LLE: minimal erythema Laboratory Data at Discharge: WBC 11.3 K/uL (4.3-10.9) H 08/01/21 04:12 Hgb 14.8 g/dL (12.0-15.0) 08/01/21 04:12 Hct 44.8 % (36.0-45.0) 08/01/21 04:12 Plt Count 233 K/uL (152-406) 08/01/21 04:12 PT 16.8 SECONDS (9.5-12.5) H 07/28/21 08:38 INR 1.51 07/28/21 08:38 APTT 36.9 SECONDS (24.3-36.9) 07/28/21 08:38 Sodium 140 mmol/L (136-145) 08/02/21 03:37 Potassium 3.6 mmol/L (3.5-5.1) 08/02/21 03:37 BUN 23 mg/dL (7-18) H 08/02/21 03:37 Creatinine 0.93 mg/dL (0.55-1.3) 08/02/21 03:37 Glucose 127 mg/dL (74-106) H 08/02/21 03:37 Phosphorus 2.7 mg/dL (2.5-4.9) 08/02/21 03:37 Magnesium 2.0 mg/dL (1.8-2.4) 08/02/21 03:37 Total Bilirubin 1.2 mg/dL (0.2-1.0) H 07/29/21 06:10 AST 28 U/L (15-37) 07/29/21 06:10 ALT 20 U/L (12-78) 07/29/21 06:10 Alkaline Phosphatase 89 U/L (45-117) 07/29/21 06:10 Home Medications: Levothyroxine [Synthroid*] 125 mcg PO [id number] 04/19/17 Tramadol HCl [Ultram] 50 mg PO Q6HP PRN 04/19/17 Pantoprazole [Protonix Tab*] 40 mg PO DAILYAC #60 tab 04/21/17 Apixaban [Eliquis] 5 mg PO BID #60 tablet 05/05/20 Ensure Enlive 237 ml PO BID can 07/22/21 Hydrocodone Bit/Acetaminophen [Hydrocodon-Acetaminophn 10-325] 1 each PO BID PRN #6 tablet 07/22/21 Cefuroxime [Ceftin*] 250 mg PO BID tab 08/02/21 Furosemide [Lasix*] 40 mg PO BIDL tab 08/02/21 Memantine HCl [Namenda*] 5 mg PO DAILY tablet 08/02/21 Senosides [Senokot*] 17.2 mg PO BID tab 08/02/21 Sotalol HCl [Betapace*] 80 mg PO BID 6AM 6PM tab 08/02/21 Spironolactone [Aldactone*] 50 mg PO DAILY tab 08/02/21 Physician Discharge Instructions: Patient was found to be in acute on chronic congestive heart failure with bilateral lower extremity edema. She was noted to have left lower extremity erythema and treated for cellulitis. She had gradual improvement with diruesis and cefuroxime (end date: 08/07) She was also noted to have acute on chronic constipation, with fecal impaction. This resolved with laxatives and ongoing bowel regimen. During her hospitalization she was noted to have heart rates up to 120s at times, in atrial fibrillation. Cardiology was consulted, patient's sotalol was titrated up and blood pressure remained stable in 90s-110s systolic. (previously decreased in an earlier hospitalization due to low blood pressure). Her home dose of memantine was restarted at lower dose to minimize risk / complication of fluid retention / leg edema. May need to be uptitrated as edema continues to improve. Incidentally positive for COVID-19. No pneumonia was seen on chest x-ray, and patient did not require oxygen supplementation. She is discharged to continue on furosemide, spironolactone, antibiotics. Follow up with Nephrology in a few weeks. Follow up with Dr. Alcaraz in a few weeks. Follow up with PCP within 1 week. Followup: Tramaine Alcaraz MD [ACTIVE - CAN ADMIT] - (Call to schedule appoitment.) Hima Monsivais MD [Primary Care Provider] - (Call to schedule follow up appointment) Time spent managing pt's care (in minutes): 45
[2021-08-02] MEDS ORDERED: MEMANTINE HCL 10 MG TABLET PO SCH (14:00)
--- NOTE | 2021-08-02 23:34 | CON ---
Reason For Consultation: Consultation called because of altered mental status. History Of Present Illness: Ms. Kim is an 86-year-old patient who was admitted to the hospital on 07/28/2021 following recent admission within 3 weeks for congestive heart failure exacerbation, swel ling of the legs, hyperkalemia, constipation, and confusion. She was treated with diuresis. She was also treated with anticoagulation for atrial fibrillation, put on beta-kamron for rate control and she responded well, but still had persistent swelling in the lower extremities. Her daughter who mov ed in town months ago to help manage her mother noted that confusion began about a month ago. Prior to that, she was fully independent, completely cognitively intact, but at that point began having pro blems with recall, with conversations, with directions and just processing information. At [facility], her head CT scan on 07/28 showed no acute ischemic or hemorrhagic changes. There was mil d small vessel ischemic disease identified and there was also mild cerebral atrophy. The blood work initially on the showed elevated white count of 14 with 83% neutrophils. Yesterday, white count 11.3 with 74% neutrophils. Her arterial blood gas essentially unremarkable. Chemistries were remar kable initially for lower potassium, which had been replaced and glucose range up to 127. Otherwise, liver function studies were unremarkable except for slightly elevated total bilirubin of 1.2. Proca lcitonin on admission 0.09. Lactic acid elevated at 2.4 and 2.7. She did receive Ceftin and her cul tures x2 were negative. Her urine cultures also negative. The patient's daughter was in the room at the time I evaluated her, and patient herself was fully gonzalo ented to situation, place, person, the date, day of the week, month, year; was able to recall 3 words after 3 minutes. She was actually getting discharged later today to the [facility], physical therapy, and antibiotic treatment. Past Medical History: Diabetes type 2, hypertension, atrial fibrillation on chronic anticoagulation, hypothyroidism. Allergies: SNAKE SERUM. Home Medications: Synthroid 125 mcg daily, tramadol 50 mg every 6 hours, Protonix 40 mg daily, Eliqu is 5 mg twice daily, Ensure 237 mL twice daily, [place] 10/325 one every 6 hours as needed, ProAmatine 10 mg 3 times daily, sotalol 40 mg twice daily, Diamox 250 mg daily. Family History: Heart disease in father and mother with cancer. Social History: No alcohol, tobacco, or IV drugs. Review of Systems: Aside from mentioned above, she has had difficulty with recall, with processing, swelling in the legs with some seeping of serous fluid and congestive heart failure, symptoms of shortness of breath, fat igue, intolerance. No fevers or chills. Physical Examination: Vital Signs: Blood pressure 126/63, pulse up to 112, temperature 97.4, oxygen saturation 97% on room air. Weight 109 pounds, height 5 feet 6 inches. General: Ms. Kim is sitting in a chair beside the bed. She is in no acute distress. She is norm ocephalic, atraumatic. Sclerae anicteric. Oropharynx is pink and moist. Neck: Supple. Heart: Actually irregularly irregular. Abdomen: Soft. Extremities: Show moderate to marked edema in the lower extremities with some hyperemia and stasis c hanges. Neurologic: Again alert and oriented to situation, place, and person. Follows all commands appropri ately. Cranial nerves show no focal deficits. In terms of the mini-mental status, she looks intact completely. Her motor examination in the upper extremities diffusely weak at 4+, lower extremities a s well. Sensory exam, stocking-glove loss to light touch, temperature. She was not ambulated. Assessment: Ms. Younger is an 86-year-old patient with likely acute reasons for encephalopathy. It i s not clear that she has a baseline dementia; however, that is possible, but that is not demonstrated at this time. She does not have any significant abnormalities except for mild small vessel ischemic disease on head CT scan. She does have infection, which could be a contributing factor to confusion . Plan: 1.At some convenient time, brain MRI without and with contrast. 2.Routine electroencephalogram. 3.Consider memantine or Aricept. 4.Blood work may be done at convenience. 5.She may follow up at Dr. Verduzco's clinic within a month of discharge. REJI/GOSIA Voice ID: [id number] Report ID: [id number]
--- NOTE | 2021-08-03 14:20 | PN ---
Date of Progress Note: 08/02/2021 Ms. Kim was admitted with ileus and since she has been in the hospital, has had worsening of her c hronic systolic congestive heart failure. She has a known ejection fraction at 35%. She has diurese d well. Asymptomatic today. Still has significant edema. She is on IV Lasix. I think if her blood pressure tolerates it maybe a low-dose PRIMITIVO inhibitor may be reasonable. I think carvedilol should a lso be an option. She can go home whenever it is okay with Dr. De La Torre. LINUS/GOSIA Voice ID: [id number] Report ID: [id number]
== END 2021-08-02 17:44 | DRG 871 ==
LOC: ER 08:03 → ERHOLD 13:34 → 4TH 14:32 → 2ND 17:42 → UNDODISIN 08-02 14:43
PROVIDERS: ADMIT Internal Medicine; ATTEND Internal Medicine
DX: A41.9 Sepsis, unspecified organism (principal); N17.0 Acute kidney failure with tubular necrosis; G93.41 Metabolic encephalopathy; I50.23 Acute on chronic systolic (congestive) heart failure; U07.1 COVID-19; L03.116 Cellulitis of left lower limb; I48.20 Chronic atrial fibrillation, unspecified; R65.20 Severe sepsis without septic shock; I11.0 Hypertensive heart disease with heart failure; E87.6 Hypokalemia; R53.81 Other malaise; K59.04 Chronic idiopathic constipation; F03.90 Unspecified dementia, unspecified severity, without behavioral disturbance, psychotic disturbance, mood disturbance, and anxiety; E03.9 Hypothyroidism, unspecified; R00.0 Tachycardia, unspecified; K21.9 Gastro-esophageal reflux disease without esophagitis; Z79.01 Long term (current) use of anticoagulants; I25.10 Atherosclerotic heart disease of native coronary artery without angina pectoris
CPT/HCPCS: 0240U; 36415; 51702; 70450; 71045; 74018; 74177; 80053; 80069; 80202; 81003; 81015; 82550; 82565; 82570; 82805; 83605; 83735; 83880; 83935; 84100; 84132; 84145; 84156; 84300; 85025; 85610; 85730; 87040; 87086; 87088; 93005; 94760; 96361; 96365; 96367; 97110; 97116; 97161; 97530; 99285; J1940; J2270; J3370; J3475; J3480; J7040; J7042; J7050; P9047; Q9967; U0003

== ENCOUNTER 2021-08-24 15:11 | Inpatient (IN) | payer OTHER ==
--- OUTSIDE RECORDS SUMMARY | 2021-08-24 15:13 | XMS REPORT | Continuity of Care Document ---
:1935 Author Organization [facility] t Address [address] [place] [address] [address] [place] [address] Care Team Providers Name Role Phone [phone] Attending Clinician Unavailable CHALO LOPEZ Attending Clinician Unavailable Radha Nielsen Attending Clinician Unavailable [phone] Admitting Clinician Unavailable NIMESH Admitting Clinician Unavailable Royer Nielsen Admitting Clinician Unavailable Payers Payer Name Policy Type Policy Number Effective Date Expiration Date S ource [facility] MCR [id number] CVA CVA [id number] Problems This patient has no known problems. Allergies, Adverse Reactions, Alerts Allergy Allergy Status Severity Reaction(s) Onset Inactive Treating Comm ents Source Name Type Date Date Clinician DILTIAZE Allergy Active ENCCLR M 4-15 09:39: 39 DILTIAZE Allergy Active ENCCLR M 4-15 09:39: 39 Medications This patient has no known medications. Procedures Procedure Date / Time Performed Performing Clinician [facility] darshan [id number] 2021-08-05 00:00:00 ENCPL Encounters Start End Encounter Admission Attending Care Care Encounter Source Date/Time Date/Time Type Type Clinicians Facility Department ID 2021-08-01 Outpatient 3 [id number] ENCPL REF [id number] ENCPL 14:37:01 0329 2021-08-17 2021-08-17 Outpatient [place] EN[facility]LR ENCCLR [id number] ENCCLR 00:00:00 00:00:00 ADMISSION PREM LOPEZ 2021-08-02 2021-08-16 Inpatient 3 [place] ENCPL ROSALIA [id number] ENCPL 19:41:00 12:08:00 Kianna crandall Results This patient has no known results.
[2021-08-24 16:13] LABS: Absolute Lymphocytes (CBC) 1.8 K/uL (0.7-4.9); Hematocrit 38.6 % (36.0-45.0); Lymphocytes % 14.8 % (15.3-44.8); MPV 7.8 fL (7.6-11.3); RBC Red Blood Cell Count 3.88 M/uL (3.86-4.86)
[2021-08-24 16:25] LABS: Protime INR 2.04
--- NOTE | 2021-08-24 16:41 | RAD REPORT ---
EXAM DESCRIPTION: RAD - Chest Single View - 08/24/2021 4:28 pm CLINICAL HISTORY: syncope COMPARISON: Abdomen 1 View (KUB) dated 07/31/2021; Chest Single View dated 07/28/2021; Chest Single Vi ew dated 07/17/2021; Chest Single View dated 04/30/2020; Abdomen Pelvis W Contrast dated 07/28/2021 FINDINGS: Lines: None. Lungs: Elevated right hemidiaphragm with hazy bilateral airspace disease. This has modestly improved compared with 07/28/2021. New left mid lung irregular nodule could reflect a small focus of pneumonia . Pleural: Small effusions difficult to exclude. Cardiac: Cardiomegaly. Atherosclerosis Bones: No acute fractures. Other: IMPRESSION: Hazy bilateral airspace disease likely reflecting edema but which has modestly improved since 07/28/2021. New irregular nodularity in the left mid lung could reflect a small area of pneumon ia.
[2021-08-24 16:43] LABS: Albumin 2.6 g/dL (3.4-5.0); Bilirubin Direct 0.5 mg/dL (0-0.2); Bilirubin Total 1.2 mg/dL (0.2-1.0); Magnesium 1.9 mg/dL (1.8-2.4); Protein, Total 6.7 g/dL (6.4-8.2); Troponin High Sensitivity 30.3 pg/mL (<58.9)
[2021-08-24 16:45] LABS: Potassium 2.5 mmol/L (3.5-5.1)
[2021-08-24 16:56] LABS: SARS-COV-2 RT PCR NEGATIVE (NEGATIVE)
[2021-08-24] MEDS ORDERED: NA CHLORIDE 0.9% 500 ML ONE (17:07)
[2021-08-24] MEDS ORDERED: Levofloxacin 750mg IV 750 MG/150 ML BAG IV ONE (17:07)
[2021-08-24] MEDS ORDERED: POTASSIUM 25 MEQ EFFERV TAB ONE (18:54)
--- NOTE | 2021-08-24 18:57 | ER ---
Nurse's Notes [facility] Name: Laya Kim Age: 86 yrs Sex: Female : 1935 Arrival Date: 08/24/2021 Time: 15:17 Bed 23 Private MD: Diagnosis: Hypotension, unspecified;Syncope Near Presentation: 08/24 15:20 Chief complaint: EMS states: they were called to the patients home for a complaint of ap3 low blood pressure. It is reported the patient started feeling more tired than normal, and daughter states blood pressure was 70's systolic. It is reported the daughter then gave midodrine to the patient. When EMS arrived, they report the patients blood pressure to be 93/42 with a HR in the 70s. Patient denies chest pain and shortness of breath. Coronavirus screen: At this time, the client does not indicate any symptoms associated with coronavirus-19. Ebola Screen: No symptoms or risks identified at this time. Initial Sepsis Screen: Does the patient meet any 2 criteria? No. Patient's initial sepsis screen is negative. Does the patient have a suspected source of infection? No. Patient's initial sepsis screen is negative. Risk Assessment: Do you want to hurt yourself or someone else? Patient reports no desire to harm self or others. Onset of symptoms was August 24, 2021. 15:20 Method Of Arrival: EMS: [facility] ap3 15:27 Acuity: NATAN 3 ap3 Triage Assessment: 15:25 General: Appears in no apparent distress. comfortable, Behavior is calm, cooperative. ap3 General: Reports fatigue for 0-12 hours. Pain: Denies pain. Neuro: Level of Consciousness is awake, alert, obeys commands, Oriented to person, place, time, situation, Speech is normal. Cardiovascular: Patient's skin is warm and dry. Respiratory: Airway is patent Respiratory effort is even, unlabored. Historical: - Allergies: 15:24 Snake serum; ap3 15:24 PENICILLINS; ap3 - PMHx: 15:24 Atrial Fib; CHF; Hypertension; Hypothyroidism; Myocardial infarction; pleural effusions ap3 requiring draining; - Immunization history:: Client reports receiving the 2nd dose of the Covid vaccine. - Social history:: Smoking status: Patient denies any tobacco usage or history of. Screenin:26 Abuse screen: Denies threats or abuse. Nutritional screening: No deficits noted. ap3 Tuberculosis screening: No symptoms or risk factors identified. 15:27 Fall Risk Fall in past 12 months (25 points). Secondary diagnosis (15 points) impaired ap3 mobility, IV access (20 points). Ambulatory Aid- None/Bed Rest/Nurse Assist (0 pts). Gait- Weak (10 pts.). Mental Status- Oriented to own ability (0 pts). Total Molina Fall Scale indicates High Risk Score (45 or more points). Fall prevention measures have been instituted. Side Rails Up X 2 Placed Close to Nursing Station Frequent Obs/Assessments Occuring Family Present and informed to notify staff if the need to leave the bedside As available patient and family educated on Fall Prevention Program and Strategies. Assessment: 16:58 Reassessment: Pt cleaned of urinary incontinence. Clean brief applied. . aa5 16:58 Reassessment: Patient is alert, oriented x 3, equal unlabored respirations, skin aa5 warm/dry/pink. 18:58 Reassessment: Patient is alert, oriented x 3, equal unlabored respirations, skin aa5 warm/dry/pink. Vital Signs: 15:20 BP 98 / 56; Pulse 65; Temp 98.1; Pulse Ox 98% ; Weight 52.16 kg; Height 5 ft. 7 in. ap3 (170.18 cm); 16:45 BP 97 / 44 Supine; Pulse 54; aa5 16:47 BP 90 / 45 Sitting; Pulse 58; aa5 16:49 BP 76 / 38 Standing; Pulse 68; aa5 16:58 BP 101 / 49; Pulse 58; Resp 14 S; Pulse Ox 99% on R/A; aa5 18:00 BP 99 / 45; Pulse 58; Resp 16 S; Pulse Ox 99% on R/A; aa5 19:15 BP 105 / 55; Pulse 63; Resp 18 S; Pulse Ox 99% on R/A; as6 15:20 Body Mass Index 18.01 (52.16 kg, 170.18 cm) ap3 16:49 PA notified of orthostatics aa5 ED Course: 15:17 Patient arrived in ED. em1 15:19 Khadar Argueta PA is PHCP. ruddy 15:19 Gill Kraus MD is Attending Physician. matthew 15:20 Meg Villanueva, RN is Primary Nurse. ap3 15:26 Arm band placed on right wrist. ap3 15:26 Patient has correct armband on for positive identification. Bed in low position. Call ap3 light in reach. Side rails up X2. Adult w/ patient. compliance monitor on. Pulse ox on. NIBP on. Door closed. Noise minimized. 15:28 Triage completed. ap3 15:57 Initial lab(s) drawn, by me, sent to lab. Inserted saline lock: 22 gauge in left aa5 forearm, using aseptic technique. Blood collected. 16:30 XRAY Chest (1 view) In Process Unspecified. EDMS 18:56 Fly Wade is Hospitalizing Provider. matthew Administered Medications: 17:05 Drug: LevaQUIN (levofloxacin) 750 mg Volume: 150 ml; Route: IVPB; Infused Over: 90 aa5 mins; Site: left forearm; 18:40 Follow up: Response: No adverse reaction; IV Status: Completed infusion aa5 17:05 Drug: NS 0.9% 500 ml Route: IV; Rate: bolus; Site: left forearm; aa5 18:00 Follow up: IV Status: Completed infusion; IV Intake: 500ml aa5 18:56 Drug: K-Lyte (potassium) Effervescent Tablet 50 mEq Route: PO; aa5 21:23 Follow up: Response: No adverse reaction as6 19:52 Drug: morphine 2 mg Route: IVP; Site: left antecubital; ke1 21:23 Follow up: Response: No adverse reaction; RASS: Alert and Calm (0) as6 19:52 Drug: Zofran (Ondansetron) 4 mg Route: IVP; Site: left antecubital; ke1 21:23 Follow up: Response: No adverse reaction as6 Intake: 18:00 IV: 500ml; Total: 500ml. aa5 Outcome: 18:57 Decision to Hospitalize by Provider. matthew 08/25 02:12 Patient left the ED. tw5 Signatures: Dispatcher [employer] EDMS Khadar Argueta PA PA jmm Martinez, Eric em1 Carmen Burk RN RN aa5 Meg Villanueva RN RN ap3 Radha Li tw5 Jorge Monson RN RN as6 Dona Snyder RN RN ke1 Corrections: (The following items were deleted from the chart) 08/24 15:25 15:24 Allergies: antibiotic medication; ap3 ap3
--- NOTE | 2021-08-24 18:58 | EDPHYS ---
Physician Documentation [facility] Name: Laya Kim Age: 86 yrs Sex: Female : 1935 Arrival Date: 08/24/2021 Time: 15:17 Bed 23 Private MD: ED Physician Gill Kraus HPI: 08/24 15:31 This 86 yrs old Female presents to ER via EMS with complaints of Blood jmm Pressure Problem. 15:31 The patient has experienced near-syncope. Onset: The symptoms/episode began/occurred jmm gradually, 3 day(s) ago. Duration: The patient has had multiple episodes. Associated injury: The patient did not suffer any apparent associated injury. This is an 86 year old female with a history of atrial fib, chf, htn, hypothyroidism, cad that presents to the ED with complaints of multiple episodes near syncope beginning over the past few days. Recently was discharged from [facility]. Patient denies chest pain, shortness of breath. . Historical: - Allergies: 15:24 Snake serum; ap3 15:24 PENICILLINS; ap3 - PMHx: 15:24 Atrial Fib; CHF; Hypertension; Hypothyroidism; Myocardial infarction; pleural effusions ap3 requiring draining; - Immunization history:: Client reports receiving the 2nd dose of the Covid vaccine. - Social history:: Smoking status: Patient denies any tobacco usage or history of. ROS: 15:31 Constitutional: Negative for fever, chills, and weight loss, Cardiovascular: Negative jmm for chest pain, palpitations, and edema, Respiratory: Negative for shortness of breath, cough, wheezing, and pleuritic chest pain. 15:31 Neuro: Positive for near syncope. 15:31 All other systems are negative. Exam: 15:31 Constitutional: This is a well developed, well nourished patient who is awake, alert, jmm and in no acute distress. Head/Face: atraumatic. Eyes: EOMI, no conjunctival erythema appreciated ENT: Moist Mucus Membranes Neck: Trachea midline, Supple Chest/axilla: Normal chest wall appearance and motion. Cardiovascular: Regular rate and rhythm. No edema appreciated Respiratory: Normal respirations, no respiratory distress appreciated Abdomen/GI: Non distended, soft Back: Normal ROM Skin: General appearance color normal MS/ Extremity: Moves all extremities, no obvious deformities appreciated, no edema noted to the lower extremities Psych: Behavior is normal, Mood is normal, Patient is cooperative and pleasant 15:31 Neuro: Orientation: is normal, Mentation: is normal. Vital Signs: 15:20 BP 98 / 56; Pulse 65; Temp 98.1; Pulse Ox 98% ; Weight 52.16 kg; Height 5 ft. 7 in. ap3 (170.18 cm); 16:45 BP 97 / 44 Supine; Pulse 54; aa5 16:47 BP 90 / 45 Sitting; Pulse 58; aa5 16:49 BP 76 / 38 Standing; Pulse 68; aa5 16:58 BP 101 / 49; Pulse 58; Resp 14 S; Pulse Ox 99% on R/A; aa5 18:00 BP 99 / 45; Pulse 58; Resp 16 S; Pulse Ox 99% on R/A; aa5 19:15 BP 105 / 55; Pulse 63; Resp 18 S; Pulse Ox 99% on R/A; as6 15:20 Body Mass Index 18.01 (52.16 kg, 170.18 cm) ap3 16:49 PA notified of orthostatics aa5 MDM: 15:31 Patient medically screened. [facility] 18:54 Data reviewed: vital signs, nurses notes. Counseling: I had a detailed discussion with ruddy the patient and/or guardian regarding: the historical points, exam findings, and any diagnostic results supporting the discharge/admit diagnosis, lab results, the need for further work-up and treatment in the hospital. ED course: I discussed the patient with Su Mena whom accepted the patient to Dr. Wade's service. . 08/24 15:32 Order name: Basic Metabolic Panel; Complete Time: 16:55 [facility] 08/24 15:32 Order name: CBC with Diff; Complete Time: 16:42 [facility] 08/24 15:32 Order name: LFT's; Complete Time: 16:55 [facility] 08/24 15:32 Order name: Magnesium; Complete Time: 16:55 [facility] 08/24 15:32 Order name: NT PRO-BNP; Complete Time: 16:55 [facility] 08/24 15:32 Order name: PT-INR; Complete Time: 16:42 [facility] 08/24 15:32 Order name: Troponin HS; Complete Time: 16:55 [facility] 08/24 15:33 Order name: COVID-19/FLU A+B (Document "Date of Onset" if Symptomatic); Complete Time: [facility] 16:58 08/24 15:46 Order name: Blood Culture Adult (2) [facility] 08/24 15:46 Order name: Lactate; Complete Time: 16:42 [facility] 08/24 18:29 Order name: Procalcitonin sb3 08/24 21:03 Order name: Urine Dipstick-Ancillary; Complete Time: 21:09 [facility] 08/24 22:32 Order name: Lactate; Complete Time: 23:00 [facility] 08/24 22:46 Order name: Glucose, Ancillary Testing; Complete Time: 23:00 [facility] 08/24 15:32 Order name: XRAY Chest (1 view); Complete Time: 16:42 [facility] 08/24 15:32 Order name: EKG; Complete Time: 15:33 [facility] 08/24 15:32 Order name: Cardiac monitoring; Complete Time: 15:44 [facility] 08/24 15:32 Order name: EKG - Nurse/Tech; Complete Time: 15:44 [facility] 08/24 15:32 Order name: IV Saline Lock; Complete Time: 21:23 [facility] 08/24 15:32 Order name: Labs collected and sent; Complete Time: 21:23 [facility] 08/24 15:32 Order name: O2 Per Protocol; Complete Time: 15:44 [facility] 08/24 15:32 Order name: O2 Sat Monitoring; Complete Time: 15:44 [facility] 08/24 15:33 Order name: Urine Dipstick-Ancillary (obtain specimen); Complete Time: 21:23 [facility] 08/24 16:38 Order name: Orthostatics; Complete Time: 16:50 jm Administered Medications: 17:05 Drug: LevaQUIN (levofloxacin) 750 mg Volume: 150 ml; Route: IVPB; Infused Over: 90 aa5 mins; Site: left forearm; 18:40 Follow up: Response: No adverse reaction; IV Status: Completed infusion aa5 17:05 Drug: NS 0.9% 500 ml Route: IV; Rate: bolus; Site: left forearm; aa5 18:00 Follow up: IV Status: Completed infusion; IV Intake: 500ml aa5 18:56 Drug: K-Lyte (potassium) Effervescent Tablet 50 mEq Route: PO; aa5 21:23 Follow up: Response: No adverse reaction as6 19:52 Drug: morphine 2 mg Route: IVP; Site: left antecubital; ke1 21:23 Follow up: Response: No adverse reaction; RASS: Alert and Calm (0) as6 19:52 Drug: Zofran (Ondansetron) 4 mg Route: IVP; Site: left antecubital; ke1 21:23 Follow up: Response: No adverse reaction as6 Disposition Summary: 08/24/21 18:57 Hospitalization Ordered Hospitalization Status: Observation [facility] Provider: Fly Wade Location: Telemetry/MedSurg (observation) [facility] Condition: Stable jmm Problem: new jmm Symptoms: are unchanged [facility] Bed/Room Type: Standard [facility] Room Assignment: 224(08/24/21 22:20) Diagnosis - Hypotension, unspecified jmm - Syncope Near [facility] Forms: - Medication Reconciliation Form jm - SBAR form [facility] Addendum: 08/31/2021 18:04 Co-signature as Attending Physician, Gill gabriel a2 Signatures: Dispatcher [employer] EDMS Jessica Paul RN RN mw Khadar Argueta PA PA [facility] Carmen Burk RN RN aa5 Gill Kraus MD MD ma2 Meg Villanueva RN RN ap3 Zenobia Garcia RN RN oneal1 Dona Snyder RN RN ke1 Jorge Monson RN as6 Corrections: (The following items were deleted from the chart) 08/24 15:25 15:24 Allergies: antibiotic medication; ap3 ap3 22:20 18:57 jm mw
[2021-08-24] MEDS ORDERED: ONDANSETRON 4 MG/2 ML VIAL ONE (19:51)
[2021-08-24] MEDS ORDERED: MORPHINE 2 MG/ML SYR ONE (19:51)
--- NOTE | 2021-08-24 19:54 | P.HP ---
Certification for Inpatient Patient admitted to: Inpatient With expected LOS: >2 Midnights Patient will require the following post-hospital care: None Practitioner: I am a practitioner with admitting privileges, knowledge of patient current condition, hospital course, and medical plan of care. Services: Services provided to patient in accordance with Admission requirements found in Title 42 Section 412.3 of the Code of Federal Regulations Patient History Date of Service: 08/24/21 Primary Care Provider: Dr. Reynolds Reason for admission: Sepsis, Near Syncope, Hypotension History of Present Illness: Patient is a 86-year-old female with chronic systolic heart failure, A. fib on chronic anticoagulation, hypothyroidism, type 2 diabetes [id number] who presented to the ED via EMS after being toned out for hypotension. Per patient's daughter, patient does have chronically low blood pressure that she checks frequently but today her blood pressure got as low as 70/38 after taking midodrine. Patient reports feeling like she could pass out. She denies shortness of breath, nausea, fever. In the ED, labs significant for sodium of 133, potassium 2.5, creatinine 1.38, white blood cell 12.3, proBNP 5429, lactic acid 2.4, Pro-Ben and urine pending. Chest x-ray showed a possible pneumonia in the left lung. She was given Levaquin, 500 L bolus, potassium replacement in the ED. her blood pressure was 105/55 during my assessment. Patient also was complaining of some dysuria. Will admit patient for further evaluation and treatment. Allergies diltiazem Allergy (Verified 07/31/21 01:31) Anaphylaxis antibiotic medication Allergy (Uncoded 05/01/20 00:32) Itching/Hives/Rash Snake serum Allergy (Uncoded 06/07/16 20:44) Unknown Home medications list reviewed: Yes Home Medications: Levothyroxine [Synthroid*] 125 mcg PO [id number] 04/19/17 Tramadol HCl [Ultram] 50 mg PO Q6HP PRN 04/19/17 Pantoprazole [Protonix Tab*] 40 mg PO DAILYAC #60 tab 04/21/17 Apixaban [Eliquis] 5 mg PO BID #60 tablet 05/05/20 Ensure Enlive 237 ml PO BID can 07/22/21 Hydrocodone Bit/Acetaminophen [Hydrocodon-Acetaminophn 10-325] 1 each PO BID PRN #6 tablet 07/22/21 Cefuroxime [Ceftin*] 250 mg PO BID tab 08/02/21 Furosemide [Lasix*] 40 mg PO BIDL tab 08/02/21 Memantine HCl [Namenda*] 5 mg PO DAILY tablet 08/02/21 Senosides [Senokot*] 17.2 mg PO BID tab 08/02/21 Sotalol HCl [Betapace*] 80 mg PO BID 6AM 6PM tab 08/02/21 Spironolactone [Aldactone*] 50 mg PO DAILY tab 08/02/21 - Past Medical/Surgical History Diabetic: Yes -: Diabetes mellitus type 2 -: Hypertension -: Atrial fibrillation -: Chronic anti coagulation -: Hypothyroidism Past Surgical History: Patient denies surgical history Psychosocial/ Personal History: She is a . She lives with daughter and has home health. - Family History Father -: Heart disease Mother -: Cancer - Social History Smoking Status: Former smoker Alcohol use: No CD- Drugs: No Caffeine use: Yes Review of Systems General: Weakness Cardiovascular: Edema Genitourinary: Dysuria Musculoskeletal: Back Pain, Foot Pain Neurological: Weakness, As per HPI Physical Examination - Physical Exam General: Alert, In no apparent distress, Oriented x3, Cooperative HEENT: Atraumatic, PERRLA, Mucous membr. moist/pink, EOMI, Sclerae nonicteric Neck: Supple, 2+ carotid pulse no bruit, No LAD, Without JVD or thyroid abnormal ity Respiratory: Clear to auscultation bilaterally, Normal air movement Cardiovascular: Regular rate/rhythm, Normal S1 S2, Edema (1+ pedal) Gastrointestinal: Normal bowel sounds, No tenderness Musculoskeletal: No tenderness Integumentary: No rashes Neurological: Normal speech, Normal strength at 5/5 x4 extr, Normal tone, Normal affect - Studies Laboratory Data (last 24 hrs) 08/24/21 15:57: PT 22.8 H, INR 2.04 08/24/21 15:57: WBC 12.3 H, Hgb 13.1, Hct 38.6, Plt Count 262 08/24/21 15:57: Sodium 133 L, Potassium 2.5 L*, BUN 35 H, Creatinine 1.38 H, Glucose 136 H, Magnesium 1.9, Total Bilirubin 1.2 H, AST 31, ALT 21, Alkaline Phosphatase 94 Assessment and Plan - Problems (Diagnosis) (1) Sepsis Current Visit: Yes Status: Acute Qualifiers: Sepsis type: sepsis due to unspecified organism Sepsis acute organ dysfunction status: without acute organ dysfunction Qualified Code(s): A41.9 - Sepsis, unspecified organism (2) Hypotension Current Visit: Yes Status: Acute Qualifiers: Hypotension type: unspecified hypotension type Qualified Code(s): I95.9 - Hypotension, unspecified (3) Near syncope Current Visit: Yes Status: Acute (4) UTI (urinary tract infection) Current Visit: Yes Status: Acute Qualifiers: Urinary tract infection type: acute cystitis Hematuria presence: without hematuria Qualified Code(s): N30.00 - Acute cystitis without hematuria (5) Systolic CHF Current Visit: Yes Status: Acute Qualifiers: Heart failure chronicity: acute on chronic Qualified Code(s): I50.23 - Ac three affiliated on chronic systolic (congestive) heart failure (6) Chronic atrial fibrillation Current Visit: No Status: Chronic (7) GERD (gastroesophageal reflux disease) Current Visit: No Status: Chronic Qualifiers: Esophagitis presence: without esophagitis Qualified Code(s): K21.9 - Gastro-esophageal reflux disease without esophagitis (8) Chronic anticoagulation Current Visit: No Status: Chronic (9) Diabetes mellitus Current Visit: Yes Status: Chronic Qualifiers: Diabetes mellitus type: type 2 Diabetes mellitus mcfp insulin use: without intermission coordinator use Diabetes mellitus complication status: with kidney complications Diabetes mellitus complication detail: with chronic kidney disease Chronic kidney disease stage: stage 4 (severe) Qualified Code(s): E11.22 - Type 2 diabetes mellitus with diabetic chronic kidney disease; N18.4 - Chronic kidney disease, stage 4 (severe) (10) Hypothyroidism Current Visit: Yes Status: Chronic Qualifiers: Hypothyroidism type: acquired Qualified Code(s): E03.9 - Hypothyroidism, unspecified (11) MIKE (acute kidney injury) Current Visit: Yes Status: Acute (12) Hypokalemia Current Visit: Yes Status: Acute (13) Pneumonia Current Visit: Yes Status: Acute Qualifiers: Pneumonia type: due to unspecified organism Laterality: left Lung location: unspecified part of lung Qualified Code(s): J18.9 - Pneumonia, unspecified organism - Plan -Sepsis likely secondary to UTI. Urinalysis pending. Will start on ceftriaxone. Lactic acid elevated at 2.4, will trend. Pro-Ben pending. White blood cell count 12.3. Afebrile. -Hypotension could be secondary to hypovolemia or blood pressure/CHF medi cations. Patient states that she believes she has been eating and drinking regularly. continue midodrine. monitor on telemetry. Cardiology consult. -Chest x-ray showed possible left-sided pneumonia. Patient denies cough or shortness of breath. Given Levaquin in the ED. We will continue for now. Consider chest CT if any symptoms arise or if source of sepsis remains unclear. -Creatinine of 1.38, baseline appears below 1. MIKE likely secondary to sepsis. Trend creatinine. We will hold nephrotoxic agents. Consider nephrology consult if no improvement. Patient does have CKD. -Patient has chronic systolic heart failure. She takes loop diuretics. Last ejection fraction 35%. She follows with Dr. Schroeder. 1200 cc a day fluid restriction. Monitor I/O -Patient has A. fib and takes Eliquis daily. She denies chest pain. She is not in A. fib at this time. We will continue Eliquis. -Type 2 diabetes: ACHS Accu-Cheks with mild sliding scale insulin -verify home medications, restart loop diuretics as appropriate, and hold other antihypertensives Discharge Plan: Home Plan to discharge in: Greater than 2 days - Advance Directives Does patient have a Living Will: No Does patient have a Durable POA for Healthcare: Yes - Code Status/Comfort Care Code Status Assessed: Yes (Full) Critical Care: No Time Spent Managing Pts Care (In Minutes): 70
[2021-08-24] MEDS ORDERED: MORPHINE 2 MG/ML SYR IV PRN (20:50)
[2021-08-24] MEDS ORDERED: ACETAMINOPHEN 500 MG TAB PO PRN (20:50)
[2021-08-24] MEDS ORDERED: LORazepam 2 MG/ML VIAL IV PRN (20:50)
[2021-08-24] MEDS ORDERED: ONDANSETRON 4 MG/2 ML VIAL IV PRN (20:50)
[2021-08-24] MEDS: INSULIN -REGULAR HUMAN 50 UNIT/0.5 ML ML SQ SCH (21:00)
[2021-08-24] MEDS ORDERED: APIXABAN 2.5 MG TABLET PO SCH (21:00)
[2021-08-24 21:03] LABS: Urine Blood Trace-intact (Negative); Urine Glucose Negative (Negative); Urine Protein Negative (Negative); Urine pH 6.5 (5.0-7.0)
[2021-08-24] MEDS ORDERED: APIXABAN 5 MG TABLET ONE (21:38)
[2021-08-24] MEDS ORDERED: CEFTRIAXONE 1000 MG/VIAL ONE (21:38)
[2021-08-24] MEDS ORDERED: NA CHLORIDE 0.9% 100 ML IV ONE (21:39)
[2021-08-24] MEDS ORDERED: Levofloxacin500mg IV 500 MG/100 ML BAG IV SCH (22:00)
[2021-08-24] MEDS ORDERED: ALBUMIN HUM 5% 250 ML IV SCH ×2 (22:00→23:00)
[2021-08-24 22:05] VITALS: BMI 20.5
[2021-08-24] MEDS: CEFTRIAXONE 1,000 MG in NA CHLORIDE 0.9% 50 ML IVPB SCH (22:13)
[2021-08-24] MEDS ORDERED: Levofloxacin500mg IV 500 MG/100 ML BAG IV ONE (22:21)
[2021-08-24] MEDS: MIDODRINE HCL 5 MG TABLET PO SCH (22:38)
[2021-08-24] MEDS ORDERED: ALBUMIN HUMAN 25% 250 ML IV ONE ×2 (22:44→23:02)
[2021-08-25 02:28] VITALS: O2SAT 99
[2021-08-25 06:19] LABS: Absolute Lymphocytes (CBC) 1.4 K/uL (0.7-4.9); Hematocrit 33.2 % (36.0-45.0); Lymphocytes % 15.3 % (15.3-44.8); MPV 7.9 fL (7.6-11.3); RBC Red Blood Cell Count 3.28 M/uL (3.86-4.86)
[2021-08-25 06:33] LABS: Magnesium 1.8 mg/dL (1.8-2.4); Phosphorus 2.1 mg/dL (2.5-4.9); Protein, Total 5.8 g/dL (6.4-8.2); Thyroid Stimulating Hormone 1.53 uIU/mL (0.360-3.740)
[2021-08-25 06:39] LABS: Potassium 2.9 mmol/L (3.5-5.1)
[2021-08-25] MEDS: INSULIN -REGULAR HUMAN 50 UNIT/0.5 ML ML SQ SCH ×2 (07:30→11:30)
[2021-08-25] MEDS ORDERED: PNEUMOCOCCAL VACCINE 0.5 ML IMVAC ONE (08:00)
[2021-08-25] MEDS ORDERED: NA CHLORIDE 0.9% 250 ML ONE (08:20)
[2021-08-25] MEDS: CEFTRIAXONE 1,000 MG in NA CHLORIDE 0.9% 50 ML IVPB SCH (08:31)
[2021-08-25] MEDS: KCL 20 MEQ/100 mL IVPB 20 MEQ/100 ML BAG IV SCH ×3 (08:31→12:00)
[2021-08-25] MEDS: MIDODRINE HCL 5 MG TABLET PO SCH ×2 (08:31→13:20)
[2021-08-25] MEDS ORDERED: APIXABAN 5 MG TABLET PO SCH (09:00)
[2021-08-25] MEDS ORDERED: POTASSIUM 25 MEQ EFFERV TAB PO ONE (12:16)
--- NOTE | 2021-08-25 13:07 | P.PN ---
Subjective Date of Service: 08/25/21 Primary Care Provider: Dr. Reynolds Chief Complaint: Sepsis, Near Syncope, Hypotension Patient is awake and alert. Blood pressure is soft. No fever. Patient denies shortness of breath at this time. Physical Examination - Vital Signs Temperature: 97.5 F Blood Pressure: 86/44 Pulse: 67 Respirations: 14 Pulse Ox (%): 95 - Studies Laboratory Data (last 24 hrs) 08/24/21 15:57: PT 22.8 H, INR 2.04 08/24/21 15:57: WBC 12.3 H, Hgb 13.1, Hct 38.6, Plt Count 262 08/24/21 15:57: Sodium 133 L, Potassium 2.5 L*, BUN 35 H, Creatinine 1.38 H, Glucose 136 H, Magnesium 1.9, Total Bilirubin 1.2 H, AST 31, ALT 21, Alkaline Phosphatase 94 Assessment And Plan - Current Problems (Diagnosis) (1) Hypokalemia Current Visit: Yes Status: Acute (2) Hypotension Current Visit: Yes Status: Acute Qualifiers: Hypotension type: unspecified hypotension type Qualified Code(s): I95.9 - Hypotension, unspecified (3) Chronic systolic CHF (congestive heart failure) Current Visit: Yes Status: Acute (4) Atelectasis Current Visit: No Status: Acute (5) Chronic atrial fibrillation Current Visit: No Status: Chronic (6) Chronic renal disease Current Visit: No Status: Chronic Qualifiers: Chronic kidney disease stage: stage 3 (moderate) - Plan Physical Exam General: Alert, In no apparent distress, Oriented x3, Cooperative HEENT: Mucous membr. moist/pink, Sclerae nonicteric. Neck: Supple, Without JVD. Respiratory: Clear to auscultation bilaterally, Normal air movement Cardiovascular: Regular rate/rhythm, Normal S1 S2, Edema (1+ pedal) Gastrointestinal: Normal bowel sounds, No tenderness Integumentary: No rashes Neurological: Normal speech, Normal strength at 5/5 x4 extr, Normal affect Plan: I doubt patient has pneumonia. Low BP is chronic. Patient is on Midodrine prn. Patient with contraction alkalosis. Hold Lasix given hypotension. Neurology consult. Continue sotalol for A. fib. Replete potassium. Patient reported burning sensation with IV potassium and requested oral replacement. Patient would like to explore hospice. Social service consult for arrangement for hospice evaluation.
--- NOTE | 2021-08-25 16:38 | P.DS ---
Admission Date: 08/24/21 Discharge Date: 08/25/21 Primary Care Provider: Dr. Reynolds Disposition: HOSPICE-HOME Discharge Condition: FAIR Reason for Admission: Sepsis, Near Syncope, Hypotension - Problems (1) Hypokalemia Current Visit: Yes Status: Acute (2) Hypotension Current Visit: Yes Status: Acute Qualifiers: Hypotension type: unspecified hypotension type Qualified Code(s): I95.9 - Hypotension, unspecified (3) Chronic systolic CHF (congestive heart failure) Current Visit: Yes Status: Acute (4) Atelectasis Current Visit: No Status: Acute (5) Chronic atrial fibrillation Current Visit: No Status: Chronic (6) Chronic renal disease Current Visit: No Status: Chronic Qualifiers: Chronic kidney disease stage: stage 3 (moderate) Brief History of Present Illness: Patient is a 86-year-old female with chronic systolic heart failure, A. fib on chronic anticoagulation, hypothyroidism, type 2 diabetes [id number] who presented to the ED via EMS after being called for hypotension. Per patient's daughter, patient does have chronically low blood pressure that she checks frequently but her blood pressure dropped to as low as 70/38 after taking midodrine. Patient reported feeling like she could pass out. In the ED, labs significant for sodium of 133, potassium 2.5, creatinine 1.38, white blood cell 12.3, proBNP 5429, lactic acid 2.4, Pro-Ben and urine pending. Chest x-ray showed a possible pneumonia in the left lung. She was given Levaquin, 500 L bolus, potassium replacement in the ED. Her blood pressure was 105/55 during my assessment. Patient also was complaining of some dysuria. Patient admitted for further management. Hospital Course: Patient admitted to the medical floor. She was put on midodrine 5 mg 3 times daily. She was given potassium replacement. Patient has had multiple hospitalizations over a period of 6 weeks. I had a discussion with the patient and her daughter. They requested for information regarding hospice. Patient evaluated for hospice and deemed eligible. Patient accepted hospice and requested to go home today. She is discharged to home with hospice. Vital Signs/Physical Exam: Temp Pulse Resp BP Pulse Ox 97.5 F 67 14 86/44 L 95 08/25/21 13:08 08/25/21 13:08 08/25/21 13:08 08/25/21 13:08 08/25/21 13:08 General: Alert, In no apparent distress, Oriented x3 HEENT: Mucous membr. moist/pink Neck: JVD not distended Respiratory: Clear to auscultation bilaterally, Normal air movement Cardiovascular: No edema, Regular rate/rhythm, Normal S1 S2 Gastrointestinal: Soft and benign, Non-distended Musculoskeletal: No swelling Integumentary: No cyanosis Neurological: Normal strength at 5/5 x4 extr Laboratory Data at Discharge: WBC 9.0 K/uL (4.3-10.9) D 08/25/21 05:49 Hgb 11.4 g/dL (12.0-15.0) L 08/25/21 05:49 Hct 33.2 % (36.0-45.0) L 08/25/21 05:49 Plt Count 214 K/uL (152-406) 08/25/21 05:49 PT 22.8 SECONDS (9.5-12.5) H 08/24/21 15:57 INR 2.04 08/24/21 15:57 Sodium 137 mmol/L (136-145) 08/25/21 05:49 Potassium 3.7 mmol/L (3.5-5.1) 08/25/21 15:20 BUN 32 mg/dL (7-18) H 08/25/21 05:49 Creatinine 1.08 mg/dL (0.55-1.3) 08/25/21 05:49 Glucose 107 mg/dL (74-106) H 08/25/21 05:49 Phosphorus 2.1 mg/dL (2.5-4.9) L 08/25/21 05:49 Magnesium 1.8 mg/dL (1.8-2.4) 08/25/21 05:49 Total Bilirubin 1.0 mg/dL (0.2-1.0) 08/25/21 05:49 AST 19 U/L (15-37) 08/25/21 05:49 ALT 15 U/L (12-78) 08/25/21 05:49 Alkaline Phosphatase 61 U/L (45-117) 08/25/21 05:49 Triglycerides 53 mg/dL (<150) 08/25/21 05:49 Cholesterol 88 mg/dL (<200) 08/25/21 05:49 HDL Cholesterol 31 mg/dL (40-60) L 08/25/21 05:49 Cholesterol/HDL Ratio 2.84 08/25/21 05:49 Home Medications: Levothyroxine [Synthroid*] 125 mcg PO [id number] 04/19/17 Tramadol HCl [Ultram] 50 mg PO DAILY 04/19/17 Apixaban [Eliquis] 5 mg PO BID #60 tablet 05/05/20 Memantine HCl [Namenda*] 5 mg PO DAILY tablet 08/02/21 Senosides [Senokot*] 17.2 mg PO BID tab 08/02/21 Sotalol HCl [Betapace*] 80 mg PO BID 6AM 6PM tab 08/02/21 Spironolactone [Aldactone*] 50 mg PO DAILY tab 08/02/21 Bumetanide [Bumex*] 1 mg PO BID 08/25/21 Digoxin 125 mcg PO DAILY 08/25/21 Docusate Sodium [Colace] 100 mg PO BID 08/25/21 Hydrocodone Bit/Acetaminophen [Hydrocodon-Acetaminophn 10-325] 1 each PO Q6HP PRN 08/25/21 Melatonin 3 mg PO BEDTIME 08/25/21 Midodrine HCl [Proamatine*] 5 mg PO TID #90 tab 08/25/21 Pantoprazole [Protonix Tab*] 40 mg PO AC 08/25/21 Silver Sulfadiazine [Silvadene 1% Cream] 1 appl TOP Q12HR 08/25/21 Simethicone [Gas Relief] 80 mg PO TID 08/25/21 New Medications: Midodrine HCl [Proamatine*] 5 mg PO TID #90 tab Diet: AHA Activity: Fall precautions Followup: Luis Reynolds DO [Primary Care Provider] - Time spent managing pt's care (in minutes): 37
[2021-08-25 18:46] VITALS: BP 95/51; TEMP 97.8
--- NOTE | 2021-08-26 00:03 | CON ---
Date of Consultation: 08/25/2021 Reason For Consultation: Hypertension, near syncope. History Of Present Illness: This is an 86-year-old female with history of congestive heart failure, chronic atrial fibrillation, hypothyroidism, diabetes who presented with significant low blood pressu re, systolic in the 70s. She was also severely dehydrated with significant electrolyte abnormality, especially hypokalemia. After proper hydration now, her blood pressure is up and the patient is feel ing well and ready to go home. Past Medical History: As outlined above in the HPI. Medications: Refer to reconciliation sheet for detailed list. Allergies: DILTIAZEM. Family History: No premature coronary artery disease or cancer. Social History: Does not smoke or drink. Does not use any drugs. Review of Systems: All systems reviewed and they were negative except for mentioned in HPI. Physical Examination: Vital Signs: Temperature is 97.5, pulse 67, breathing at 14, blood pressure is 86/44. General: A pleasant elderly female, in no apparent distress. Head And Neck: Pupils are equal and reactive to light. Intact eye movements. No JVD. No cyanosis. Neck supple. Thyroid is not enlarged. Lungs: Clear to auscultation bilaterally. No rhonchi, rales, or crackles. No accessory muscle use. Heart: Irregularly irregular. No extra sounds. Abdomen: Soft, nontender. Bowel sounds positive. No organomegaly. No masses or hernia. No rigidi ty or rebound. Extremities: No clubbing, cyanosis. Intact pulses. Skin: No rash. Neurologic: Alert, awake. No acute focal deficits appreciated. Investigations: Hemoglobin 11.4. Potassium is 2.9 then 3.7, creatinine is 1.08. Assessment And Recommendation: 1.Hypotension, likely due to over diuresis. I recommend to cut down on the Bumex dose in half and t o hold it for at least 2 days until the blood pressure gets back up into desirable range and then res ume it and recommend to start on potassium supplements while on the diuretics, something like potassi um chloride 20 mEq use twice daily. 2.Acute renal failure from dehydration, probably due to overdiuresis. Hold the Bumex for now and to reassess once her blood pressure is back up and start at lower dose as the patient is known to have congestive heart failure. Thank you for the consult. SR/MODL Voice ID: [id number] Report ID: [id number]
[2021-08-26] MEDS ORDERED: Levofloxacin 750mg IV 750 MG/150 ML BAG IV SCH (09:00)
== END 2021-08-25 18:37 | disposition hospice, home (50) | DRG 872 ==
LOC: ER 15:11 → ERHOLD 20:16 → 2ND 22:29
PROVIDERS: ADMIT Internal Medicine; ATTEND Internal Medicine
DX: A41.9 Sepsis, unspecified organism (principal); N39.0 Urinary tract infection, site not specified; N17.9 Acute kidney failure, unspecified; I48.20 Chronic atrial fibrillation, unspecified; I50.22 Chronic systolic (congestive) heart failure; E87.3 Alkalosis; R65.20 Severe sepsis without septic shock; E03.9 Hypothyroidism, unspecified; I95.9 Hypotension, unspecified; E87.6 Hypokalemia; E11.22 Type 2 diabetes mellitus with diabetic chronic kidney disease; N18.30 Chronic kidney disease, stage 3 unspecified; K21.9 Gastro-esophageal reflux disease without esophagitis; Z20.822 Contact with and (suspected) exposure to COVID-19
CPT/HCPCS: 0240U; 36415; 71045; 80048; 80053; 80061; 80076; 81003; 82947; 83605; 83735; 83880; 84100; 84132; 84145; 84439; 84443; 84484; 85025; 85610; 87040; 87086; 87088; 93005; 96365; 96366; 96375; 99284; J2270; J2405; J3480; J7040; J7050; P9045; P9047